=== PATIENT | male | born 1950 | race Caucasian/White ===

== ENCOUNTER 2017-02-13 09:28 | Emergency (ER) | payer MEDICARE, OTHER ==
[~2017-02-13] VITALS: Ht 170.2 cm; Wt 87.0 kg
[~2017-02-13 09:28] MED LIST: 1-ME1LIQ PO; BACT800T5 PO
[2017-02-13 09:35] VITALS: BP 155/72; PULSE 94; RESP 16; TEMP 98.6; O2SAT 98
--- NOTE | 2017-02-13 09:54 | PD ---
HPI Chief Complaint: Musculoskeletal Complaint Time Seen by Provider: 09:40 Travel History International Travel<30 days: No Contact w/Intl Traveler<30days: No Traveled to known affect area: No History of Present Illness HPI The patient is a 66-year-old male who presents to the emergency department for left foot pain. The patient notes a three-day history of left foot pain that is over the anterior left forefoot. The pain is worse with weightbearing and plantar flexing. The patient denies any trauma to the affected area and denies any increase in activity to left lower extremity. He denies any history of gout or previous injuries to left foot. He denies any associated numbness, tingling, erythema, or swelling. The pain is nonradiating , worse with weightbearing, and alleviated at rest. PFSH Past Medical History Hx Anticoagulant Therapy: No Arthritis: No Asthma: No Autoimmune Disease: No Blood Disorders: No Anxiety: No Depression: No Heart Rhythm Problems: No Cancer: No Cardiac Catheterization: Yes Cardiovascular Problems: No High Cholesterol: No Chemotherapy: No Chest Pain: No Congestive Heart Failure: No COPD: No Cerebrovascular Accident: No Diabetes: No Diminished Hearing: No Endocrine: No Gastrointestinal Disorders: No GERD: No Glaucoma: No Headaches: No Hepatitis: No Hiatal Hernia: No Hypertension: Yes Immune Disorder: No Implanted Vascular Access Dvce: No Musculoskeletal: No Neurologic: No Psychiatric: No Reproductive: No Respiratory: No Immunizations Current: No Migraines: No Myocardial Infarction: No Radiation Therapy: No Seizures: Yes Sickle Cell Disease: No Sleep Apnea: No Thyroid Disease: No Ulcer: No Past Surgical History Abdominal Surgery: No AICD: No Appendectomy: No Arteriovenous Shunt: No Cardiac Surgery: No Cholecystectomy: No Coronary Artery Bypass Graft: No Ear Surgery: No Endocrine Surgery: No Eye Surgery: Yes (CATARACT) Genitourinary Surgery: No Gynecologic Surgery: No Insulin Pump: No Joint Replacement: No Neurologic Surgery: No Oral Surgery: No Pacemaker: No Thoracic Surgery: No Other Surgery: No Social History Alcohol Use: Yes (4PACK./DAY) Tobacco Use: Yes (2PPD) Substance Use: No Allergies-Medications (Allergen,Severity, Reaction): Coded Allergies: No Known Allergies (Verified , 02/13/17) Reported Meds & Prescriptions Reported Meds & Active Scripts Active No Active Prescriptions or Reported Medications Review of Systems Except as stated in HPI: all other systems reviewed are Neg General / Constitutional: No: Fever Musculoskeletal: Positive: Pain, No: Limited ROM, Edema Skin: No Other (no erythema) Neurologic: No: Paresthesia, Sensory Disturbance Physical Exam Narrative GENERAL: Awake, alert, nontoxic-appearing 66-year-old male who appears his stated age and is in no acute respiratory distress. SKIN: Focused skin assessment warm/dry. HEAD: Atraumatic. Normocephalic. EYES: No injection or drainage. ENT: No nasal bleeding or discharge. Mucous membranes pink and moist. NECK: Trachea midline. No JVD. MUSCULOSKELETAL: The left foot reveals no obvious edema or erythema. Patient is tender to palpation over the anterior aspect of the mid left forefoot but no crepitus or deformity noted. Positive left dorsalis pedal pulse. Pain is elicited with plantarflexion but patient is able fully plantar flex and dorsiflex. No tenderness of the medial or lateral malleus. No tenderness of the Achilles. NEUROLOGICAL: Awake and alert. No obvious cranial nerve deficits. Motor grossly within normal limits. Normal speech. Sensation is intact of the medial , lateral, dorsal aspect of the left foot. PSYCHIATRIC: Appropriate mood and affect; insight and judgment normal. Data Data Last Documented VS Vital Signs Date Time Temp Pulse Resp B/P (MAP) Pulse Ox O2 Delivery O2 Flow Rate FiO2 02/13/17 09:35 98.6 94 16 155/72 (99) 98 Orders Orders Foot, Complete ([id number]) (02/13/17 ) Ibuprofen (Motrin) (02/13/17 10:00) [facility] Medical Decision Making Medical Screen Exam Complete: Yes Emergency Medical Condition: Yes Medical Record Reviewed: Yes Interpretation(s) X-ray reveals no acute bony abnormality noted. Differential Diagnosis Differential diagnosis includes gout, cellulitis, stress fracture, contusion, hematoma, sprain, strain. Narrative Course X-ray of the left foot was obtained. The patient was administered ibuprofen 400 mg orally. The patient's x-rays unremarkable, however, review the EMR does reveal the patient has chronic kidney disease stage III, therefore, I will fluid pooled cholesterol anti-inflammatory use. The patient will be prescribed pain medications. He is advised elevate, rest, activity as tolerated. If symptoms persist he is advised to follow-up with podiatry. He will be provided a copy of his x-ray results at discharge. Diagnosis Primary Impression: Left foot pain Patient Instructions: General Instructions Additional Instructions: Medications as directed. Follow-up with podiatry if symptoms persist. Rest, ice, elevate, and activity as tolerated. Med/Other Pt SpecificInfo: Prescription(s) given Scripts Hydrocodone-Acetaminophen ([place]) 5-325 mg Tab 1 TAB PO Q6H Y for PAIN, #15 TAB 0 Refills Prov: Kenneth Stroud MD 02/13/17 Disposition: 01 DISCHARGE HOME Condition: Stable Kenneth Stroud MD Feb 13, 2017 09:54
[2017-02-13] MEDS ORDERED: IBUPROFEN 400 MG TAB PO ONE (10:00)
--- NOTE | 2017-02-13 10:41 | RADRPT ---
EXAM DATE/TIME: 02/13/2017 10:11 [facility] COMPARISON: CHEST PA & LAT, March 05, 2016, 20:47. INDICATIONS : Left foot pain /swelling with no known injury. MEDICAL HISTORY : Hypertension. Seizures. SURGICAL HISTORY : Cataract sugery. Cardiac cath. ENCOUNTER: Initial ACUITY: 3 days PAIN SCORE: 7/10 LOCATION: Left foot FINDINGS: Three view examination of the left foot demonstrates mild soft tissue swelling. No acute fracture or dislocation is identified. The tarsal bones appear intact. The interphalangeal and metatarsophalange al joints are intact. The calcaneus is intact. Bony mineralization is normal. CONCLUSION: 1. No acute bony abnormality. Maurilio Acevedo MD on February 13, 2017 at 10:36 Board Certified Radiologist. This report was verified electronically.
[2017-02-13] MEDS ORDERED: NORC5TAB PO (10:47)
== END 2017-02-13 11:00 | disposition home or self-care (01) ==
LOC: PHED 09:28
DX: M79.672 Pain in left foot (principal); F17.200 Nicotine dependence, unspecified, uncomplicated
CPT/HCPCS: 73630; 99283

== ENCOUNTER 2017-06-18 09:23 | Emergency (ER) | payer SELFPAY ==
[~2017-06-18] VITALS: Ht 170.2 cm; Wt 88.0 kg
[~2017-06-18 09:23] MED LIST changes: -1-ME1LIQ PO; -BACT800T5 PO; +NORC5TAB PO
[2017-06-18 09:29] VITALS: BP 192/93; PULSE 82; RESP 16; TEMP 97.6; O2SAT 98
--- NOTE | 2017-06-18 10:19 | PD ---
HPI Chief Complaint: Musculoskeletal Complaint Time Seen by Provider: 10:09 Travel History International Travel<30 days: No Contact w/Intl Traveler<30days: No Traveled to known affect area: No History of Present Illness HPI 66-year-old male with history of hypertension presents for evaluation of right elbow pain. Symptoms started 2 weeks ago. He reports that he woke up with pain to the medial right elbow. He is an aching pain which is constant, worse with flexion and extension of the right elbow. Symptoms have persisted which prompted evaluation today. He does not recall any trauma. He is right-hand dominant. He denies any repetitive motion activities utilizing the right arm. He has no other complaints at this time. PFSH Past Medical History Hx Anticoagulant Therapy: No Arthritis: No Asthma: No Autoimmune Disease: No Blood Disorders: No Anxiety: No Depression: No Heart Rhythm Problems: No Cancer: No Cardiac Catheterization: Yes Cardiovascular Problems: No High Cholesterol: No Chemotherapy: No Chest Pain: No Congestive Heart Failure: No COPD: No Cerebrovascular Accident: No Diabetes: No Diminished Hearing: No Endocrine: No Gastrointestinal Disorders: No GERD: No Glaucoma: No Headaches: No Hepatitis: No Hiatal Hernia: No Hypertension: Yes Immune Disorder: No Implanted Vascular Access Dvce: No Musculoskeletal: No Neurologic: No Psychiatric: No Reproductive: No Respiratory: No Immunizations Current: No Migraines: No Myocardial Infarction: No Radiation Therapy: No Seizures: Yes Sickle Cell Disease: No Sleep Apnea: No Thyroid Disease: No Ulcer: No Past Surgical History Abdominal Surgery: No AICD: No Appendectomy: No Arteriovenous Shunt: No Cardiac Surgery: No Cholecystectomy: No Coronary Artery Bypass Graft: No Ear Surgery: No Endocrine Surgery: No Eye Surgery: Yes (CATARACT) Genitourinary Surgery: No Gynecologic Surgery: No Insulin Pump: No Joint Replacement: No Neurologic Surgery: No Oral Surgery: No Pacemaker: No Thoracic Surgery: No Other Surgery: No Social History Alcohol Use: Yes (4PACK./DAY) Tobacco Use: Yes (2PPD) Substance Use: No Allergies-Medications (Allergen,Severity, Reaction): Coded Allergies: No Known Allergies (Verified Adverse Reaction, Unknown, 06/18/17) Reported Meds & Prescriptions Reported Meds & Active Scripts Active Capsaicin Topical (Capsaicin) 0.025% Cream 1 Applic TOPICAL QID Amlodipine (Amlodipine Besylate) 10 Mg Tab 10 Mg PO DAILY Review of Systems General / Constitutional: No: Fever, Chills Musculoskeletal: Positive: Limited ROM, Pain Skin: Positive Other (denies open wounds) Physical Exam Narrative GENERAL: Well-developed well-nourished male in no acute distress. Noted to be hypertensive in triage. SKIN: Warm and dry. HEAD: Atraumatic. Normocephalic. EYES: Pupils equal and round. No scleral icterus. No injection or drainage. ENT: No nasal bleeding or discharge. Mucous membranes pink and moist. NECK: Trachea midline. No JVD. CARDIOVASCULAR: Regular rate and rhythm. No murmur appreciated. RESPIRATORY: No accessory muscle use. Clear to auscultation. Breath sounds equal bilaterally. MUSCULOSKELETAL: Tender to palpation to the medial epicondyles of the right elbow. The patient has pain with flexion and extension of the right elbow limiting range of motion. Pronation and supination of the right forearm are intact. There is no edema to the right proximal arm or forearm. No joint effusion or erythema of the skin. Distal sensation and pulses are preserved. NEUROLOGICAL: Awake and alert. No obvious cranial nerve deficits. Motor grossly within normal limits. Normal speech. PSYCHIATRIC: Appropriate mood and affect; insight and judgment normal. Data Data Last Documented VS Vital Signs Date Time Temp Pulse Resp B/P (MAP) Pulse Ox O2 Delivery O2 Flow Rate FiO2 06/18/17 09:29 97.6 82 16 192/93 (126) 98 Orders Orders Elbow, Complete (4 Vws) (06/18/17 ) Ed Discharge Order (06/18/17 11:23) [facility] Medical Decision Making Medical Screen Exam Complete: Yes Emergency Medical Condition: Yes Medical Record Reviewed: Yes Differential Diagnosis Inflammatory arthritis, medial epicondylitis, fracture, bursitis, DVT, sprain Narrative Course 66-year-old male with 2 weeks of medial right elbow pain with no obvious trauma. Examination is focal tenderness to palpation to the medial right elbow and pain with flexion and extension with no obvious deformities. Per chart review the patient is a heavy drinker and is possible that he could have injured it while intoxicated. X-ray imaging will be obtained. The patient was noted to be hypertensive in triage. He reports history of hypertension, previously on antihypertensive medication but has been out of it for several months. Per chart review the patient was previously on amlodipine 10 mg daily. The patient be given a short refill of this and is encouraged to follow-up with his primary care physician. X-ray imaging reveals chronic changes no acute findings. Patient has a history of chronic kidney disease so oral NSAIDs will be avoided. He will be given prescription for capsaicin and recommended [id number] Tylenol for symptom control. Diagnosis Primary Impression: Right elbow pain Additional Impression: Hypertension Additional Instructions: Medication as prescribed. As discussed monitor blood pressure on a daily basis and follow-up with primary care physician next week to discuss the findings. Med/Other Pt SpecificInfo: Prescription(s) given Scripts Capsaicin Topical (Capsaicin Topical) 0.025% Cream 1 APPLIC TOPICAL QID, #1 TUBE Prov: Yosef Montoya MD 06/18/17 Amlodipine (Amlodipine) 10 Mg Tab 10 MG PO DAILY for Blood Pressure Management, #30 TAB 0 Refills Prov: Yosef Montoya MD 06/18/17 Disposition: 01 DISCHARGE HOME Condition: Stable Jordan Mendoza Jun 18, 2017 10:19
[2017-06-18] MEDS ORDERED: AMLO10TA2 PO (11:14)
--- NOTE | 2017-06-18 11:20 | RADRPT ---
EXAM DATE/TIME: 06/18/2017 10:41 [facility] COMPARISON: No previous studies available for comparison. INDICATIONS : Right elbow pain, no known injury. MEDICAL HISTORY : None. SURGICAL HISTORY : None. ENCOUNTER: Initial ACUITY: 2 weeks PAIN SCORE: 9/10 LOCATION: Right elbow FINDINGS: Multiple view examination of the right elbow demonstrates no soft tissue swelling, joint effusion, or fracture. The osseous structures are in normal alignment. Mild degenerative changes noted in the ul stephanie trochlear joint. There is mild osteopenia. CONCLUSION: Osteopenia and mild degenerative change. Madan Matos MD on June 18, 2017 at 11:13 Board Certified Radiologist. This report was verified electronically.
[2017-06-18] MEDS ORDERED: CAPS0.022 TOPICAL (11:23)
== END 2017-06-18 11:38 | disposition home or self-care (01) ==
LOC: PHEFT 09:23
DX: M25.521 Pain in right elbow (principal); I10 Essential (primary) hypertension; F17.200 Nicotine dependence, unspecified, uncomplicated
CPT/HCPCS: 73080; 99283

== ENCOUNTER 2017-08-08 09:39 | Emergency (ER) | payer MEDICARE ==
[~2017-08-08] VITALS: Ht 170.2 cm; Wt 86.5 kg
[~2017-08-08 09:39] MED LIST changes: +AMLO10TA2 PO; +CAPS0.022 TOPICAL; -NORC5TAB PO
[2017-08-08 09:50] VITALS: BP 120/73; PULSE 96; RESP 16; TEMP 97.9; O2SAT 96
--- NOTE | 2017-08-08 10:52 | PD ---
HPI Chief Complaint: Respiratory Symptoms Time Seen by Provider: 10:48 Travel History International Travel<30 days: No Contact w/Intl Traveler<30days: No Traveled to known affect area: No History of Present Illness HPI 66-year-old male patient with history of hypertension, smoking, presents to the ER today because he has had 4 weeks history of coughing with small amount of phlegm. He states that he has had some he denies any shortness of breath, fevers, vomiting, or other symptoms. He also states he has noticed 2 kn on his right upper quadrant abdomen that act up sometimes but he has no pain now. Modifying Factors: None Associated Signs & Symptoms: Coughing for 4 weeks, right upper quadrant abdominal pains intermittently Risk Factors: None PFSH Past Medical History Hx Anticoagulant Therapy: No Arthritis: No Asthma: No Autoimmune Disease: No Blood Disorders: No Anxiety: No Depression: No Heart Rhythm Problems: No Cancer: No Cardiac Catheterization: Yes Cardiovascular Problems: No High Cholesterol: No Chemotherapy: No Chest Pain: No Congestive Heart Failure: No COPD: No Cerebrovascular Accident: No Diabetes: No Diminished Hearing: No Endocrine: No Gastrointestinal Disorders: No GERD: No Glaucoma: No Headaches: No Hepatitis: No Hiatal Hernia: No Hypertension: Yes Immune Disorder: No Implanted Vascular Access Dvce: No Musculoskeletal: No Neurologic: No Psychiatric: No Reproductive: No Respiratory: No Immunizations Current: No Migraines: No Myocardial Infarction: No Radiation Therapy: No Seizures: Yes Sickle Cell Disease: No Sleep Apnea: No Thyroid Disease: No Ulcer: No Tetanus Vaccination: < 5 Years Influenza Vaccination: No Past Surgical History Abdominal Surgery: No AICD: No Appendectomy: No Arteriovenous Shunt: No Cardiac Surgery: No Cholecystectomy: No Coronary Artery Bypass Graft: No Ear Surgery: No Endocrine Surgery: No Eye Surgery: Yes (BL cataracts ) Genitourinary Surgery: No Gynecologic Surgery: No Insulin Pump: No Joint Replacement: No Neurologic Surgery: No Oral Surgery: No Pacemaker: No Thoracic Surgery: No Other Surgery: No Social History Alcohol Use: Yes (2-3 beers/day) Tobacco Use: Yes (1.5 PPD) Substance Use: No Allergies-Medications (Allergen,Severity, Reaction): Coded Allergies: No Known Allergies (Verified Adverse Reaction, Unknown, 08/08/17) Reported Meds & Prescriptions Reported Meds & Active Scripts Active Amlodipine (Amlodipine Besylate) 10 Mg Tab 10 Mg PO DAILY Review of Systems Except as stated in HPI: all other systems reviewed are Neg Physical Exam Narrative GENERAL: Well-developed elderly white male patient currently in no acute distress. Awake and oriented 3. SKIN: Focused skin assessment warm/dry. HEAD: Atraumatic. Normocephalic. EYES: Pupils equal and round. No scleral icterus. No injection or drainage. ENT: No nasal bleeding or discharge. Mucous membranes pink and moist. NECK: Trachea midline. No JVD. Supple. CARDIOVASCULAR: Regular rate and rhythm. No murmur appreciated. RESPIRATORY: No accessory muscle use. Clear to auscultation. Breath sounds equal bilaterally. GASTROINTESTINAL: Abdomen soft, non-tender, nondistended. Hepatic and splenic margins not palpable. MUSCULOSKELETAL: No obvious deformities. No clubbing. No cyanosis. Trace pitting edema the right leg. NEUROLOGICAL: Awake and alert. No obvious cranial nerve deficits. Motor grossly within normal limits. Normal speech. PSYCHIATRIC: Appropriate mood and affect; insight and judgment normal. Data Data Last Documented VS Vital Signs Date Time Temp Pulse Resp B/P (MAP) Pulse Ox O2 Delivery O2 Flow Rate FiO2 08/08/17 11:56 85 20 119/74 (89) 97 Room Air 08/08/17 09:50 97.9 Orders Orders Complete Blood Count With Diff (08/08/17 10:48) Comprehensive Metabolic Panel (08/08/17 10:48) Chest, Single Ap (08/08/17 10:48) Us Leg Venous Doppler (08/08/17 11:39) Labs Laboratory Tests Test 08/08/17 11:00 White Blood Count 7.2 TH/MM3 Red Blood Count 4.34 MIL/MM3 Hemoglobin 14.3 GM/DL Hematocrit 42.3 % Mean Corpuscular Volume 97.3 FL Mean Corpuscular Hemoglobin 32.9 PG Mean Corpuscular Hemoglobin Concent 33.9 % Red Cell Distribution Width 16.0 % Platelet Count 173 TH/MM3 Mean Platelet Volume 7.1 FL Neutrophils (%) (Auto) 57.5 % Lymphocytes (%) (Auto) 19.0 % Monocytes (%) (Auto) 19.6 % Eosinophils (%) (Auto) 3.1 % Basophils (%) (Auto) 0.8 % Neutrophils # (Auto) 4.1 TH/MM3 Lymphocytes # (Auto) 1.4 TH/MM3 Monocytes # (Auto) 1.4 TH/MM3 Eosinophils # (Auto) 0.2 TH/MM3 Basophils # (Auto) 0.1 TH/MM3 CBC Comment DIFF FINAL Differential Comment Blood Urea Nitrogen 43 MG/DL Creatinine 2.30 MG/DL Random Glucose 112 MG/DL Total Protein 7.7 GM/DL Albumin 3.0 GM/DL Calcium Level 8.2 MG/DL Alkaline Phosphatase 77 U/L Aspartate Amino Transf (AST/SGOT) 62 U/L Alanine Aminotransferase (ALT/SGPT) 41 U/L Total Bilirubin 0.9 MG/DL Sodium Level 134 MEQ/L Potassium Level 4.0 MEQ/L Chloride Level 99 MEQ/L Carbon Dioxide Level 26.7 MEQ/L Anion Gap 8 MEQ/L Estimat Glomerular Filtration Rate 29 ML/MIN [facility] Medical Decision Making Medical Screen Exam Complete: Yes Emergency Medical Condition: Yes Medical Record Reviewed: Yes Interpretation(s) Laboratory Tests Test 08/08/17 11:00 Red Blood Count 4.34 MIL/MM3 (4.50-5.90) Monocytes (%) (Auto) 19.6 % (0.0-8.0) Monocytes # (Auto) 1.4 TH/MM3 (0-0.9) Blood Urea Nitrogen 43 MG/DL (7-18) Creatinine 2.30 MG/DL (0.60-1.30) Random Glucose 112 MG/DL (74-106) Albumin 3.0 GM/DL (3.4-5.0) Calcium Level 8.2 MG/DL (8.5-10.1) Aspartate Amino Transf (AST/SGOT) 62 U/L (15-37) Sodium Level 134 MEQ/L (136-145) Estimat Glomerular Filtration Rate 29 ML/MIN (>89) Last 24 hours Impressions Chest X-Ray 08/08/17 1048 Signed Impressions: Service Date/Time: Tuesday, August 08, 2017 11:01 - CONCLUSION: No acute disease. Kelvin Acevedo MD FACR Differential Diagnosis Coughing, right upper quadrant abdominal pains: Costochondritis versus pneumonia versus pleurisy versus bronchitis Narrative Course X-ray was unremarkable. Lab work shows BUN and creatinine elevation. BNP was fairly unremarkable. There are no signs of hypoxia and pulmonary exam is unremarkable. At this point, considering smoking history, I suspect he may have some underlying bronchitis causing his coughing. On further questioning, patient's states that he has had history of kidney problems in the past. Ultrasound of his right leg did not show any signs of DVT. At this point, his other electrolytes are fairly unremarkable. My plan would be to treat his bronchitis and have him follow-up closely with primary care physician for evaluation of renal functions. Patient may need to be referred to nephrology as well. Plan was discussed with patient and and they state understanding. Diagnosis Primary Impression: CKD (chronic kidney disease) stage 3, GFR 30-59 ml/min Additional Impression: Bronchitis Med/Other Pt SpecificInfo: Prescription(s) given Scripts Azithromycin (Zithromax Z-Filemon) 250 Mg Dspk 250 MG PO DIRECTED for Infection, #1 DSPK 0 Refills 500 MG (2 tabs) day 1, then 1 tab days 2-5. Prov: Yuki Brewer MD 08/08/17 Disposition: DISCHARGE HOME Condition: Stable Yuki Brewer MD Aug 08, 2017 10:52
[2017-08-08 11:09] LABS: AUTOMATED NEUTROPHIL # 4.1 TH/MM3 (1.8-7.7); BASOPHIL # 0.1 TH/MM3 (0-0.2); BASOPHIL % 0.8 % (0.0-2.0); EOSINOPHIL # 0.2 TH/MM3 (0-0.4); EOSINOPHIL % 3.1 % (0.0-4.0); HEMATOCRIT 42.3 % (39.0-51.0); HEMOGLOBIN 14.3 GM/DL (13.0-17.0); LYMPHOCYTE # 1.4 TH/MM3 (1.0-4.8); MEAN CELL VOLUME 97.3 FL (80.0-100.0); MEAN CORPUSCULAR HEMOGLOBIN 32.9 PG (27.0-34.0); MEAN CORPUSCULAR HGB CONC 33.9 % (32.0-36.0); MEAN PLATELET VOLUME 7.1 FL (7.0-11.0); MONO % 19.6 % (0.0-8.0); MONOCYTE # 1.4 TH/MM3 (0-0.9); NEUT % 57.5 % (16.0-70.0); PLATELET COUNT 173 TH/MM3 (150-450); RED BLOOD COUNT 4.34 MIL/MM3 (4.50-5.90); WHITE BLOOD COUNT 7.2 TH/MM3 (4.0-11.0)
[2017-08-08 11:22] LABS: CHLORIDE 99 MEQ/L (98-107); SODIUM (NA) 134 MEQ/L (136-145)
[2017-08-08 11:24] LABS: CALCIUM 8.2 MG/DL (8.5-10.1)
[2017-08-08 11:25] LABS: BICARBONATE 26.7 MEQ/L (21.0-32.0); BLOOD UREA NITROGEN 43 MG/DL (7-18); GLUCOSE,RANDOM 112 MG/DL (74-106)
--- NOTE | 2017-08-08 11:25 | RADRPT ---
EXAM DATE/TIME: 08/08/2017 11:01 [facility] COMPARISON: CHEST SINGLE AP, January 08, 2016, 15:27. INDICATIONS : Short of breath MEDICAL HISTORY : Hypertension. Smoker SURGICAL HISTORY : Cardiac catherization ENCOUNTER: Initial ACUITY: 1 day PAIN SCORE: 0/10 LOCATION: Bilateral chest FINDINGS: A single view of the chest demonstrates the lungs to be symmetrically aerated without evidence of mas s, infiltrate or effusion. The cardiomediastinal contours are unremarkable. Osseous structures are intact. CONCLUSION: No acute disease. Kelvin Acevedo MD FACR on August 08, 2017 at 11:23 Board Certified Radiologist. This report was verified electronically.
[2017-08-08 11:28] LABS: ALT (GPT) 41 U/L (12-78); AST (GOT) 62 U/L (15-37); GLOMERULAR FILTRATION RATE 29 ML/MIN (>89)
[2017-08-08 11:30] LABS: TOTAL BILIRUBIN ADULT 0.9 MG/DL (0.2-1.0); TOTAL PROTEIN 7.7 GM/DL (6.4-8.2)
[2017-08-08 11:31] LABS: ALKALINE PHOSPHATASE 77 U/L (45-117)
[2017-08-08 11:56] VITALS: BP 119/74; PULSE 85; RESP 20; O2SAT 97
--- NOTE | 2017-08-08 12:26 | RADRPT ---
EXAM DATE/TIME: 08/08/2017 12:04 [facility] COMPARISON: No previous studies available for comparison. INDICATIONS : Right leg swelling. MEDICAL HISTORY : Hypertension. Seizures. SURGICAL HISTORY : Cardiac catheterization. ENCOUNTER: Initial ACUITY: 1 day PAIN SCORE: 0/10 LOCATION: Right leg. TECHNIQUE: Venous ultrasound of the leg was performed from the inguinal ligament to the proximal calf. Real-laila e, color Doppler and spectral tracing, compression and augmentation techniques were used. FINDINGS: There is normal compressibility of the deep venous system from the inguinal region to the proximal ca lf. No echogenic clot is seen in the lumen of the common femoral, femoral, popliteal, and posterior tibial veins. There is a normal response of the venous system to proximal and distal augmentation an d respiration. CONCLUSION: No DVT is identified within the right lower extremity. Stephen Ling MD on August 08, 2017 at 12:24 Board Certified Radiologist. This report was verified electronically.
[2017-08-08] MEDS ORDERED: ZITHTAB PO (12:34)
== END 2017-08-08 13:10 | disposition home or self-care (01) ==
LOC: PHED 09:39
DX: N18.3 Chronic kidney disease, stage 3 (moderate) (principal); J40 Bronchitis, not specified as acute or chronic; R60.0 Localized edema; R10.11 Right upper quadrant pain; I12.9 Hypertensive chronic kidney disease with stage 1 through stage 4 chronic kidney disease, or unspecified chronic kidney disease; F17.200 Nicotine dependence, unspecified, uncomplicated; Z86.69 Personal history of other diseases of the nervous system and sense organs
CPT/HCPCS: 71045; 80053; 85025; 93971; 99285

== ENCOUNTER 2018-02-16 17:32 | Inpatient (IN) ==
[2018-02-16 18:20] LABS: Baso % (Auto) 0.2 % (0.0-2.0); Eos # (Auto) 0.1 th/mm3 (0.0-0.4); Eos % (Auto) 0.6 % (0.0-4.0); Hematocrit 30.5 % (39.0-51.0); Hemoglobin 10.2 gm/dL (13.0-17.0); Lymph # (Auto) 0.9 th/mm3 (1.0-4.8); Lymph % (Auto) 7.3 % (9.0-44.0); Mean Corpuscular HGB Conc 33.6 % (32.0-36.0); Mean Corpuscular Hemoglobin 36.1 pg (27.0-34.0); Mean Corpuscular Volume 107.6 fL (80.0-100.0); Mean Platelet Volume 7.4 fL (7.0-11.0); Mono # (Auto) 1.6 th/mm3 (0.0-0.9); Mono % (Auto) 13.1 % (0.0-8.0); Neut # (Auto) 9.6 th/mm3 (1.8-7.7); Neut % (Auto) 78.8 % (16.0-70.0); Platelet Count 419 th/mm3 (150-450); Red Blood Count 2.83 mil/mm3 (4.50-5.90); Red Cell Distribution Width 14.2 % (11.6-17.2); White Blood Count 12.2 th/mm3 (4.0-11.0)
[2018-02-16 18:34] LABS: Chloride 97 meq/L (98-107); Potassium 4.4 meq/L (3.5-5.1); Sodium 133 meq/L (136-145)
[2018-02-16 18:37] LABS: Albumin 2.2 g/dL (3.4-5.0); Calcium 8.7 mg/dL (8.5-10.1)
[2018-02-16 18:38] LABS: Anion Gap 14 meq/L (5-15); Blood Urea Nitrogen 52 mg/dL (7-18); Carbon Dioxide 21.6 meq/L (21.0-32.0); Glucose,Random 88 mg/dL (74-106)
[2018-02-16 18:41] LABS: Activated Partial Thrombo Time 31.3 sec (24.3-30.1); Alanine Aminotransferase 20 U/L (12-78); Aspartate Aminotransferase 20 U/L (15-37); Glomerular Filtration Rate 32 mL/min (>89)
[2018-02-16 18:42] LABS: Total Protein 7.9 g/dL (6.4-8.2)
[2018-02-16 18:43] LABS: Alkaline Phosphatase 106 U/L (45-117)
[2018-02-16 18:45] LABS: Creatine Kinase 36 U/L (39-308)
--- NOTE | 2018-02-16 18:53 | CT ---
EXAM DATE: 02/16/2018 6:21 PM EDT AGE/SEX: 67 years / Male INDICATIONS: Frequent falls and dizziness. CLINICAL DATA: This is the patient's initial encounter. Patient reports that signs and symptoms have been present for 3 weeks and indicates a pain score of 0/10. MEDICAL/SURGICAL HISTORY: Hypertension. . Cataract extraction. RADIATION DOSE: 56.42 CTDI (mGy) COMPARISON: [facility] [place], CT BRAIN W/O CONTRAST, 11/02/2015. . TECHNIQUE: CT of the head without contrast. Using automated exposure control and adjustment of the mA and/or kV according to patient size, radiation dose was kept as low as reasonably achievable to ob tain optimal diagnostic quality images. DICOM format image data is available electronically for revi ew and comparison. FINDINGS: There is no intracranial hemorrhage or hematoma. No mass, mass effect or midline shift. Atrophy and chronic low-attenuation in the periventricular white matter again noted. There is mild ve ntriculomegaly, similar to before. CONCLUSION: 1. No acute intracranial abnormality. 2. Atrophy and chronic white matter changes. 3. Mild ventriculomegaly similar to before. . Electronically signed by: Stephen Ordoñez MD 02/16/2018 6:51 PM EDT
[2018-02-16] MEDS ORDERED: Sodium Chlor 0.9% Inj 500 ML IV.SIG SCH ×2 (19:00→20:00)
--- NOTE | 2018-02-16 19:01 | XR ---
EXAM DATE: 02/16/2018 6:04 PM EDT AGE/SEX: 67 years / Male INDICATIONS: Dizziness and patient fell today. CLINICAL DATA: This is the patient's initial encounter. Patient reports that signs and symptoms have been present for 1 day and indicates a pain score of 4/10. MEDICAL/SURGICAL HISTORY: . Hypertension. . Cataract extraction . Cataracts COMPARISON: [facility], CHEST SINGLE AP, 08/08/2017. . FINDINGS: A single AP view of the chest demonstrates the lungs to be symmetrically aerated without evidence of mass, infiltrate or effusion. The cardiomediastinal contours are unremarkable. Osseous structures a re intact. CONCLUSION: No evidence of acute cardiopulmonary disease. Electronically signed by: Stephen Ordoñez MD 02/16/2018 7:00 PM EDT
--- NOTE | 2018-02-16 19:13 | XR ---
EXAM DATE: 02/16/2018 6:07 PM EDT AGE/SEX: 67 years / Male INDICATIONS: Patient srtates that he has left knee pain with no history of trauma. CLINICAL DATA: This is the patient's initial encounter. Patient reports that signs and symptoms have been present for 1 day and indicates a pain score of 7/10. MEDICAL/SURGICAL HISTORY: . Hypertension. . Cataract extraction . cataracts COMPARISON: [facility], FEMUR LEFT (AP & LAT/2VWS), 01/07/2015. . FINDINGS: There is no fracture or subluxation demonstrated of the left knee. No significant joint space narrowi ng. A large joint effusion is evident. There is atherosclerosis of the superficial femoral and popliteal arteries. CONCLUSION: No bony abnormality demonstrated. Nonspecific joint effusion. Peripheral artery disease. Electronically signed by: Stephen Ordoñez MD 02/16/2018 7:12 PM EDT
--- NOTE | 2018-02-16 19:45 | ED ---
HPI General Chief complaint: Dizziness Stated complaint: DIZZINESS/FALL Time Seen by Provider: 02/16/18 17:57 Source: patient Mode of arrival: ambulatory Limitations: no limitations History of Present Illness HPI narrative: Patient is a 67 year old male who comes in complaining of frequent falls and left knee pain. Patient was here a few days ago for right knee pain, but says now the left his hurting him and keeps giving out. His roommate reports that for the past few weeks he has been "blacking out and having seizures." He says he has shaking episodes of 15 seconds when he passes out. He says when he wakes up he is completely coherent. Patient is a daily drinker. He says he has not had an alcoholic beverage since yesterday. He denies chest pain or SOB. He denies fever or chills. Severity is moderate. Related Data Previous Rx's Medication Instructions Recorded hydrocodone-acetaminophen [[place]] 1 tab PO Q6-8H PRN #10 tab 02/10/18 Allergies Allergy/AdvReac Type Severity Reaction Status Date / Time No Known Allergies Allergy Verified 02/16/18 17:39 Review of Systems ROS: all other systems reviewed are negative Constitutional Denies chills and Denies fever(s) ENT Denies dizziness Cardiovascular Denies chest pain Respiratory Denies cough and Denies dyspnea Gastrointestinal Denies abdominal pain, Denies nausea and Denies vomiting Musculoskeletal Reports arthralgias Integumentary/Breasts Denies lesions, Reports rash and Denies wounds Neurologic Denies focal weakness and Reports seizure-like activity [facility] Medical History Medical History Hypertension (Acute) Surgical History Surgical History H/O bilateral cataract extraction (Acute) Social History Social History Substance History: Active Abuse Second Hand Smoke Exposure: No Smoking Status: Current every day smoker Tobacco Type: Cigarettes How Often Do You Have a Drink Containing Alcohol: 4 or more times a week Recent Travel in [facility] within the Last 8 Weeks: No Recent Out of Country Travel within the Last 8 Weeks: No Immunization History Tetanus Immunization: >5 Years Hx Influenza Vaccine This Season: No Exam Narrative Exam Narrative: GENERAL: Awake and alert, no acute distress. SKIN: Excoriations of her most of his extremities. No evidence of infection. HEAD: Atraumatic. Normocephalic. EYES: Pupils equal and round. No scleral icterus. Extraocular movements intact. ENT: Mucous membranes pink and moist. Tongue fasciculations apparent. NECK: Trachea midline. No JVD. CARDIOVASCULAR: Regular rate and rhythm. No murmur appreciated. RESPIRATORY: No accessory muscle use. Clear to auscultation. Breath sounds equal bilaterally. GASTROINTESTINAL: Abdomen soft, non-tender, nondistended. MUSCULOSKELETAL: No obvious deformities. No clubbing. No cyanosis. No edema. Pain with movement of the left knee. NEUROLOGICAL: Awake and alert. No obvious cranial nerve deficits. Motor grossly within normal limits. Normal speech. Patient has tremors of both hands. PSYCHIATRIC: Appropriate mood and affect; insight and judgment normal. Course Initial Documented Vital Signs Temperature 98.1 F 02/16/18 17:35 Pulse Rate 106 H 02/16/18 17:35 Respiratory Rate 18 02/16/18 17:35 Blood Pressure 152/72 H 02/16/18 17:35 Pulse Oximetry 100 02/16/18 17:35 Last Documented Vital Signs Temperature 98.1 F 02/16/18 17:35 Pulse Rate 106 H 02/16/18 17:57 Respiratory Rate 18 02/16/18 17:57 Blood Pressure 161/60 H 02/16/18 17:57 Pulse Oximetry 98 02/16/18 17:57 Medical Decision Making [facility] Narrative Medical decision making narrative: Patient is a 67-year-old male who comes in after frequent falls in complaining of left knee pain. Exam shows patient to be tremulous. IV established, labs sent. Patient connected to the potline monitor. Given Ativan. Given IV fluids. Labs show a white blood cell count of 12.2. Creatinine is 2.1, this is improved from his previous. Chest x-ray shows no acute abnormalities. CT of the head performed shows no acute abnormalities. I believe patient's symptoms are related to alcohol and alcohol withdrawal. He will be admitted for further management. Medical Screen Exam Complete: Yes Emergency Medical Condition: Yes Differential Diagnosis Differential Diagnosis: Alcohol withdrawal versus electrolyte abnormality versus dehydration versus arthritis Medical Records Medical records reviewed: Yes I reviewed the patient's medical records. Lab Data Lab results reviewed: Yes I reviewed the patient's lab results. Result diagrams: 02/16/18 18:10 02/16/18 18:10 Lab Results 02/16/18 02/16/18 02/16/18 Range/Units 18:10 18:10 18:10 CBC w Diff Auto diff final WBC 12.2 H (4.0-11.0) th/mm3 RBC 2.83 L (4.50-5.90) mil/mm3 Hgb 10.2 L (13.0-17.0) gm/dL Hct 30.5 L (39.0-51.0) % MCV 107.6 H (80.0-100.0) fL MCH 36.1 H (27.0-34.0) pg MCHC 33.6 (32.0-36.0) % RDW 14.2 (11.6-17.2) % Plt Count 419 (150-450) th/mm3 MPV 7.4 (7.0-11.0) fL Neut % (Auto) 78.8 H (16.0-70.0) % Lymph % (Auto) 7.3 L (9.0-44.0) % [place] % (Auto) 13.1 H (0.0-8.0) % Eos % (Auto) 0.6 (0.0-4.0) % Baso % (Auto) 0.2 (0.0-2.0) % Neut # (Auto) 9.6 H (1.8-7.7) th/mm3 Lymph # (Auto) 0.9 L (1.0-4.8) th/mm3 [place] # (Auto) 1.6 H (0.0-0.9) th/mm3 Eos # (Auto) 0.1 (0.0-0.4) th/mm3 Baso # (Auto) 0.0 (0.0-0.2) th/mm3 WBC Differential . Differential Comment . PT 10.0 (9.8-11.6) sec INR 1.0 Ratio APTT 31.3 H (24.3-30.1) sec Sodium 133 L (136-145) meq/L Potassium 4.4 (3.5-5.1) meq/L Chloride 97 L (98-107) meq/L Carbon Dioxide 21.6 (21.0-32.0) meq/L Anion Gap 14 (5-15) meq/L BUN 52 H (7-18) mg/dL Creatinine 2.10 H (0.60-1.30) mg/dL Estimated GFR 32 L (>89) mL/min Random Glucose 88 (74-106) mg/dL Calcium 8.7 (8.5-10.1) mg/dL Total Bilirubin 0.6 (0.2-1.0) mg/dL AST 20 (15-37) U/L ALT 20 (12-78) U/L Alkaline Phosphatase 106 (45-117) U/L Total Creatine Kinase 36 L (39-308) U/L Troponin I Less than 0.02 L (0.02-0.05) ng/mL Total Protein 7.9 (6.4-8.2) g/dL Albumin 2.2 L (3.4-5.0) g/dL Serum Alcohol Less than 3 (0-5) mg/dL Imaging Data Radiologist's impression: Chest X-Ray 02/16/18 18:04 CONCLUSION: No evidence of acute cardiopulmonary disease. Head CT 02/16/18 18:04 CONCLUSION: 1. No acute intracranial abnormality. 2. Atrophy and chronic white matter changes. 3. Mild ventriculomegaly similar to before. . Knee X-Ray 02/16/18 18:07 CONCLUSION: No bony abnormality demonstrated. Nonspecific joint effusion. Peripheral artery disease. ECG Data EKG Prior to Arrival: No Attestation: I personally reviewed and interpreted this ECG as follows: Interpretation: ECG shows sinus tachycardia at a rate of 104, no ST elevation or depression, right bundle branch block Discharge Plan Discharge Disposition Patient Disposition: 30 Still Patient Discharge Condition Condition: Stable Discharge Details Diagnosis: Alcohol withdrawal, Falls frequently Physicians Team ED Provider: Ivy Doyle Primary Care Provider: Primary Care Maxine Christine Rxs /Orders / Referrals /Forms Prescriptions: No Action hydrocodone-acetaminophen [[place]] 5-325 mg tablet 1 tab PO Q6-8H PRN (Reason: pain) Qty: 10 RF: 0 Discharge Interventions Interventions: Vital Signs Last Done: 02/16/18 19:48 Status ED Status: With Doctor
[2018-02-16] MEDS ORDERED: Haloperidol Inj 5 MG/ML Ampul IV.PUSH PRN (20:12)
[2018-02-16] MEDS ORDERED: LORazepam 1 MG Tablet PO PRN (20:12)
[2018-02-16] MEDS: Heparin - SQ 10,000 UNITS/ML Vial SQ SCH (22:46)
[2018-02-16] MEDS: Sod Chloride 0.9% Inj 1,000 ML IV.CONT SCH (22:47)
[2018-02-16] MEDS: Famotidine 20 MG Tablet PO SCH (22:47)
[2018-02-17] MEDS: Sod Chloride 0.9% Inj 1,000 ML IV.CONT SCH ×3 (06:46→21:54)
[2018-02-17] MEDS: Heparin - SQ 10,000 UNITS/ML Vial SQ SCH ×3 (07:10→21:11)
[2018-02-17] MEDS: Folic Acid 1 MG Tablet PO SCH (09:21)
[2018-02-17] MEDS: Multivitamin/Minerals Therapeutic Tablet PO SCH (09:21)
[2018-02-17] MEDS: Famotidine 20 MG Tablet PO SCH ×3 (09:21→20:49)
--- NOTE | 2018-02-17 09:28 | P.HP ---
History of Present Illness Primary Care Physician: No Primary Care Physician Chief Complaint: Multiple falls at home, knee pain, report of seizures History of Present Illness: This is a 67-year-old male patient with a known medical history of alcohol abuse who presented to the ED with complaints of multiple falls at home, right knee pain, and reports of seizures at home. Patient is examined at bedside, sleeping awakens to voice. Alert and oriented x 3 although a relatively poor historian. Patient does state that he has been falling at home for the past couple months and has just recently reports of falling out of his truck and hurting his right knee. He states that he uses a walker at home although states it does not fit him well and he does not use it. Patient states that prior to his falls he feels like his legs are giving out with occasional dizziness prior to his falls. He admits to drinking up to a 12-pack per day of beer as well as smoking 2 ppd cigarettes since his teen years. Patient does admit to issues in the past, states that his last seizure was last month. He does not take any medications at home for his seizures. States that he usually has a seizure if he stops drinking or does not drink enough. Denies any recent fevers, chills, cough, shortness of breath, vomiting, or changes to his bowels. - Diagnosis (1) Alcohol withdrawal (2) Falls frequently Review of Systems All other systems reviewed negative except as stated in HPI PMFSH - History History Provided By: Patient - Medical History Medical History: Medical History (Last Reviewed 02/17/18 @ 09:17 by Ivy Gonzales) Hypertension - Surgical History Surgical History: Surgical History (Last Reviewed 02/17/18 @ 09:17 by Ivy Gonzales) H/O bilateral cataract extraction - Family History Family History: Family History (Last Updated 02/17/18 @ 09:17 by Ivy Gonzales) Other Family history in first degree relatives is unremarkable - Tobacco History Second Hand Smoke Exposure: Yes Tobacco Use In Past 30 Days: Yes Smoking Status: Heavy tobacco smoker Tobacco Type: Cigarettes - Alcohol History How Often Do You Have a Drink Containing Alcohol: 4 or more times a week - Substance Use History Substance History: No History of Abuse - Travel History Recent Travel in the [place] Within the Last 8 Weeks: No Recent Travel Out of the Country Within the Last 8 Weeks: No - Immunization History Tetanus Immunization: >5 Years Hx Influenza Vaccine This Season: No Medications and Allergies Active Medications: Active Medications Hydrocodone Bitart/Acetaminophen ([place] 5/325) 1 tab PO Q6H PRN PRN Reason: pain Clonidine HCl (Catapres) 0.1 mg PO Q6H PRN PRN Reason: For SBP>/=170, DBP>/=100;HR>60 Last Admin: 02/17/18 04:21 Dose: 0.1 mg Diphenhydramine HCl (Benadryl Inj) 25 mg IV.PUSH Q6H PRN PRN Reason: ITCHING Famotidine (Pepcid) 20 mg PO BID [facility] Last Admin: 02/16/18 22:47 Dose: 20 mg Famotidine (Pepcid) 10 mg PO BID [facility] Flumazenil (Romazecon Inj) 0.2 mg IV.PUSH Q1M PRN PRN Reason: OVERSEDATION Folic Acid (Folic Acid) 1 mg PO DAILY [facility] Stop: 02/22/18 08:59 Haloperidol Lactate (Haldol Inj) 1 mg IV.PUSH Q15M PRN PRN Reason: for severe agitation Heparin Sodium (Porcine) (Heparin Inj) 5,000 units SQ Q8HR [facility] Last Admin: 02/17/18 07:10 Dose: 5,000 units Sodium Chloride (Ns Inj) 500 mls @ 0 mls/hr IV.SIG BOLUS [facility] Last Infusion: 02/16/18 22:57 Dose: Infused Sodium Chloride (Ns Inj) 500 mls @ 0 mls/hr IV.SIG BOLUS [facility] Last Infusion: 02/16/18 22:58 Dose: Infused Sodium Chloride (Ns Inj) 1,000 mls @ 125 mls/hr IV.CONT .Q8H [facility] Last Admin: 02/17/18 06:46 Dose: 125 mls/hr Lorazepam (Ativan) 1 mg PO Q4H PRN PRN Reason: for CIWA 8-10 Lorazepam (Ativan) 2 mg PO Q2H PRN PRN Reason: for CIWA 11-14 Lorazepam (Ativan Inj) 2 mg IV.PUSH Q2H PRN PRN Reason: for CIWA 11-14 Lorazepam (Ativan Inj) 2 mg IV.PUSH Q1H PRN PRN Reason: for CIWA 15-20 Lorazepam (Ativan Inj) 1 mg IV.PUSH Q4H PRN PRN Reason: for CIWA 8-10 Lorazepam (Ativan Inj) 2 mg IV.PUSH Q15M PRN PRN Reason: for CIWA > 20 Multivitamins/Minerals (Theragran-M) 1 tab PO DAILY [facility] Stop: 02/22/18 08:59 Ondansetron HCl (Zofran Inj) 4 mg IV.PUSH Q6H PRN PRN Reason: NAUSEA OR VOMITING Sodium Chloride (Ns Flush) 2 ml IV.FLUSH PRN PRN PRN Reason: FLUSH AFTER USING IV ACCESS Thiamine HCl (Vitamin B1) 100 mg PO DAILY [facility] Allergies Allergy/AdvReac Type Severity Reaction Status Date / Time No Known Allergies Allergy Verified 02/16/18 17:39 Exam Vital signs: Vital Signs 02/16/18 17:35 02/16/18 17:57 02/16/18 19:48 Temperature 98.1 F Pulse Rate 106 H 106 H 105 H Respiratory Rate 18 18 16 Blood Pressure 152/72 H 161/60 H 170/83 H Pulse Oximetry 100 98 98 02/16/18 20:00 02/16/18 21:00 02/17/18 00:00 Temperature 98.2 F 97.0 F L Pulse Rate 104 H 104 H 107 H Respiratory Rate 18 16 18 Blood Pressure 184/83 H 164/74 H 181/85 H Pulse Oximetry 94 L 100 96 02/17/18 04:00 02/17/18 08:00 Temperature 97.4 F L 96.4 F L Pulse Rate 117 H 99 H Respiratory Rate 18 Blood Pressure 199/91 H 131/83 Pulse Oximetry 97 Intake & Output 02/16/18 02/17/18 02/17/18 18:59 06:59 18:59 Intake Total 1999 Balance 1999 Weight 78.5 kg 78.7 kg Intake: IV 1999 NS Inj 1,000 ML @ 125 mls/hr IV 1000 / 1000 .CONT .Q8H MARK Rx#:[id number] NS Inj 500 ML @ Wide Open IV. 1000 / 1000 SIG BOLUS MARK Rx#:[id number] Other: Weight On Admission 78.7 kg Narrative: GENERAL: Well-developed, well-nourished unkept male patient, appears well of her stated age in NAD. AAO x3. SKIN: Warm and dry. Scattered multiple scabbing and abrasions HEAD: Normocephalic. Atraumatic. EYES: Pupils equal and round. No scleral icterus. No injection or drainage. ENT: No nasal bleeding or discharge. Mucous membranes pink and moist. NECK: Supple. Trachea midline. CARDIOVASCULAR: Regular rate and rhythm. S1, S2 noted. No murmur appreciated. RESPIRATORY: No accessory muscle use. Clear to auscultation. Breath sounds equal bilaterally. GASTROINTESTINAL: Abdomen soft, non-tender, nondistended. Normoactive bowel sounds x4. MUSCULOSKELETAL: No obvious deformities. Extremities without clubbing, cyanosis , or edema. NEUROLOGICAL: Awake and alert. No obvious cranial nerve deficits. Motor grossly within normal limits. 5/5 muscle strength in bilateral upper and lower extremities. Normal speech. PSYCHIATRIC: Appropriate mood and affect; insight and judgment normal. Results - Labs CBC & Chem 7: 02/16/18 18:10 02/16/18 18:10 Labs: Laboratory Results - last 24 hr 02/16/18 02/16/18 02/16/18 18:10 18:10 18:10 CBC w Diff Auto diff final WBC 12.2 H RBC 2.83 L Hgb 10.2 L Hct 30.5 L MCV 107.6 H MCH 36.1 H MCHC 33.6 RDW 14.2 Plt Count 419 MPV 7.4 Neut % (Auto) 78.8 H Lymph % (Auto) 7.3 L [place] % (Auto) 13.1 H Eos % (Auto) 0.6 Baso % (Auto) 0.2 Neut # (Auto) 9.6 H Lymph # (Auto) 0.9 L [place] # (Auto) 1.6 H Eos # (Auto) 0.1 Baso # (Auto) 0.0 WBC Differential . Differential Comment . PT 10.0 INR 1.0 APTT 31.3 H Sodium 133 L Potassium 4.4 Chloride 97 L Carbon Dioxide 21.6 Anion Gap 14 BUN 52 H Creatinine 2.10 H Estimated GFR 32 L Random Glucose 88 Calcium 8.7 Total Bilirubin 0.6 AST 20 ALT 20 Alkaline Phosphatase 106 Total Creatine Kinase 36 L Troponin I Less than 0.02 L Total Protein 7.9 Albumin 2.2 L Serum Alcohol Less than 3 - Imaging Impressions Chest X-Ray 02/16/18 18:04 CONCLUSION: No evidence of acute cardiopulmonary disease. Head CT 02/16/18 18:04 CONCLUSION: 1. No acute intracranial abnormality. 2. Atrophy and chronic white matter changes. 3. Mild ventriculomegaly similar to before. . Knee X-Ray 02/16/18 18:07 CONCLUSION: No bony abnormality demonstrated. Nonspecific joint effusion. Peripheral artery disease. Caprini VTE Risk Assessment Caprini VTE Risk Assessment: Moderate/High Risk (score >= 2) Caprini Risk Assessment Model: Point Value = 1 Point Value = 2 Point Value = 3 Point Value = 5 Age 41-60 Minor surgery BMI > 25 kg/m2 Swollen legs Varicose veins or History of unexplained or recurrent spontaneous Oral contraceptives or hormone replacement Sepsis (< 1 month) Serious lung disease, including pneumonia (< 1 month) Abnormal pulmonary function Acute myocardial infarction Congestive heart failure (< 1 month) History of inflammatory bowel disease Medical patient at bed rest Age 61-74 Arthroscopic surgery Major open surgery (> 45 min) Laparoscopic surgery (> 45 min) Malignancy Confined to bed (> 72 hours) Immobilizing plaster cast Central venous access Age >= 75 History of VTE Family history of VTE Factor V Leiden Prothrombin [id number] Lupus anticoagulant Anticardiolipin antibodies Elevated serum homocysteine Heparin-induced thrombocytopenia Other congenital or acquired thrombophilia Stroke (< 1 month) Elective arthroplasty Hip, pelvis, or leg fracture Acute spinal cord injury (< 1 month) Prophylaxis Regimen: Total Risk Factor Score Risk Level Prophylaxis Regimen 0-1 Low Early ambulation 2 Moderate Order ONE of the following: *Sequential Compression Device (SCD) *Heparin 5000 units SQ BID 3-4 Higher Order ONE of the following medications: *Heparin 5000 units SQ TID *Enoxaparin/Lovenox 40 mg SQ daily (WT < 150 kg, CrCl > 30 mL/min) *Enoxaparin/Lovenox 30 mg SQ daily (WT < 150 kg, CrCl > 10-29 mL/min) *Enoxaparin/Lovenox 30 mg SQ BID (WT < 150 kg, CrCl > 30 mL/min) AND/OR *Sequential Compression Device (SCD) 5 or more Highest Order ONE of the following medications: *Heparin 5000 units SQ TID (Preferred with Epidurals) *Enoxaparin/Lovenox 40 mg SQ daily (WT < 150 kg, CrCl > 30 mL/min) *Enoxaparin/Lovenox 30 mg SQ daily (WT < 150 kg, CrCl > 10-29 mL/min) *Enoxaparin/Lovenox 30 mg SQ BID (WT < 150 kg, CrCl > 30 mL/min) AND *Sequential Compression Device (SCD) Assessment and Plan - Assessment (1) Alcohol withdrawal Code(s): F10.239 - Alcohol dependence with withdrawal, unspecified Status: Acute (2) Falls frequently Code(s): R29.6 - Repeated falls Status: Acute - Plan This is a 67-year-old male patient with Acute on chronic alcohol abuse Multiple falls at home suspect secondary to above Left knee pain with joint effusion secondary to above -Patient presented with reports of multiple falls at home. Serum alcohol level 3. -Head CT reviewed and normal. No acute abnormalities. -Seizure precautions. High follow risk. Monitor for any withdrawals. Patient placed on CIWA protocol. -Encouraged alcohol cessation, patient does not express interest in quitting. -Placed on thiamine and multivitamin. Check folate and thiamine levels and B12. -Encourage PO intake, continue IVF for now. -Left knee x-ray reviewed and showing left knee large joint effusion. -Pain medication as needed per pain scale. Acute kidney injury -Creatinine 2.1. Upon review of his history, his baseline appears to be 2.3 in July of this year. Although prior to this he is baseline was around 1.3-1.5. -Will continue to monitor. BMP in a.m. -Continue IV hydration. Avoid nephrotoxins. Hypertension Tachycardia -Likely secondary to alcohol withdrawal. -Continue to monitor cardiac telemetry, monitor for any arrhythmias. -Clonidine as needed per parameters. Tobacco abuse: Encouraged cessation. Nicotine patch. Urticaria Possible fleas from home. -Benadryl as needed for itching. -Eucerin cream ordered as needed. -Encouraged self hygiene and bath today. DVT prophylaxis: SCDs. Ambulation. Heparin. (1) Alcohol withdrawal Qualifiers: Complication of substance-induced condition: uncomplicated Qualified Code(s) : F10.230 - Alcohol dependence with withdrawal, uncomplicated
[2018-02-17 10:27] LABS: Baso # (Auto) 0.1 th/mm3 (0.0-0.2); Baso % (Auto) 0.6 % (0.0-2.0); Eos # (Auto) 0.2 th/mm3 (0.0-0.4); Eos % (Auto) 2.6 % (0.0-4.0); Hematocrit 27.5 % (39.0-51.0); Hemoglobin 9.4 gm/dL (13.0-17.0); Mean Corpuscular HGB Conc 34.3 % (32.0-36.0); Mean Corpuscular Hemoglobin 36.3 pg (27.0-34.0); Mean Corpuscular Volume 105.7 fL (80.0-100.0); Mean Platelet Volume 7.9 fL (7.0-11.0); Mono % (Auto) 10.3 % (0.0-8.0); Neut # (Auto) 7.3 th/mm3 (1.8-7.7); Neut % (Auto) 76.5 % (16.0-70.0); Platelet Count 443 th/mm3 (150-450); Red Blood Count 2.61 mil/mm3 (4.50-5.90); Red Cell Distribution Width 14.4 % (11.6-17.2); White Blood Count 9.6 th/mm3 (4.0-11.0)
[2018-02-17 10:41] LABS: Chloride 104 meq/L (98-107); Potassium 4.1 meq/L (3.5-5.1); Sodium 137 meq/L (136-145)
[2018-02-17 10:44] LABS: Albumin 1.9 g/dL (3.4-5.0); Anion Gap 11 meq/L (5-15); Blood Urea Nitrogen 43 mg/dL (7-18); Calcium 8.6 mg/dL (8.5-10.1); Carbon Dioxide 22.1 meq/L (21.0-32.0); Glucose,Random 99 mg/dL (74-106)
[2018-02-17 10:47] LABS: Alanine Aminotransferase 16 U/L (12-78); Aspartate Aminotransferase 19 U/L (15-37); Glomerular Filtration Rate 43 mL/min (>89)
[2018-02-17 10:49] LABS: Total Protein 7.3 g/dL (6.4-8.2)
[2018-02-17 10:50] LABS: Alkaline Phosphatase 102 U/L (45-117)
[2018-02-17 14:30] LABS: Folate 13.5 ng/mL (3.1-17.5)
--- NOTE | 2018-02-17 17:22 | ECG ---
Date Performed: 02/16/2018 Time Performed: 18:28:15 PTAGE: 67 years EKG: SINUS TACHYCARDIA BORDERLINE LEFT AXIS DEVIATION RIGHT BUNDLE BRANCH BLOCK ABNORMAL ECG PREVIOUS TRACING : 01/08/2016 16.21 Since the previous tracing, no significant change noted DOCTOR: Felipe Perla Interpretating Date/Time 02/17/2018 17:21:30
[2018-02-18 05:21] LABS: Baso # (Auto) 0.1 th/mm3 (0.0-0.2); Eos # (Auto) 0.4 th/mm3 (0.0-0.4); Eos % (Auto) 4.7 % (0.0-4.0); Hematocrit 25.8 % (39.0-51.0); Hemoglobin 8.7 gm/dL (13.0-17.0); Lymph % (Auto) 12.2 % (9.0-44.0); Mean Corpuscular HGB Conc 33.9 % (32.0-36.0); Mean Corpuscular Hemoglobin 35.7 pg (27.0-34.0); Mean Corpuscular Volume 105.2 fL (80.0-100.0); Mean Platelet Volume 7.5 fL (7.0-11.0); Mono # (Auto) 1.1 th/mm3 (0.0-0.9); Neut # (Auto) 5.8 th/mm3 (1.8-7.7); Neut % (Auto) 69.1 % (16.0-70.0); Platelet Count 403 th/mm3 (150-450); Red Blood Count 2.45 mil/mm3 (4.50-5.90); Red Cell Distribution Width 14.6 % (11.6-17.2); White Blood Count 8.4 th/mm3 (4.0-11.0)
[2018-02-18 05:24] LABS: Potassium 3.9 meq/L (3.5-5.1)
[2018-02-18 05:29] LABS: Calcium 8.2 mg/dL (8.5-10.1); Carbon Dioxide 21.3 meq/L (21.0-32.0)
[2018-02-18] MEDS: Heparin - SQ 10,000 UNITS/ML Vial SQ SCH ×3 (05:39→23:11)
[2018-02-18] MEDS: Sod Chloride 0.9% Inj 1,000 ML IV.CONT SCH ×2 (06:00→17:37)
[2018-02-18] MEDS: Folic Acid 1 MG Tablet PO SCH (08:27)
[2018-02-18] MEDS: Multivitamin/Minerals Therapeutic Tablet PO SCH (08:27)
[2018-02-18] MEDS: Famotidine 20 MG Tablet PO SCH ×2 (08:27→20:45)
--- NOTE | 2018-02-18 11:22 | P.PN ---
Subjective Interval history: Follow up alcohol withdrawal and generalized weakness. Patient seen and examined , lying in bed sleeping. Awakens to voice. With mild essential tremors. Continued tachycardia overnight with hypertension. Continued on CIWA protocol. No acute complaints. Physical Exam Vital signs: Vital Signs 02/17/18 13:01 02/17/18 14:15 02/17/18 16:00 Temperature Pulse Rate 101 H 98 H 104 H Respiratory Rate 20 20 Blood Pressure 176/79 H 116/82 Pulse Oximetry 100 97 02/17/18 16:48 02/17/18 20:00 02/17/18 22:00 Temperature Pulse Rate 102 H 101 H 116 H Respiratory Rate 17 34 H Blood Pressure 160/89 H 179/88 H Pulse Oximetry 100 93 L 02/18/18 00:00 02/18/18 01:00 02/18/18 02:00 Temperature 97.5 F L Pulse Rate 110 H 104 H 100 H Respiratory Rate 28 H 14 16 Blood Pressure 145/83 H 128/76 157/86 H Pulse Oximetry 74 L 02/18/18 03:26 02/18/18 04:00 02/18/18 08:00 Temperature 98.1 F Pulse Rate 108 H 106 H 106 H Respiratory Rate 20 18 19 Blood Pressure 181/89 H 191/95 H Pulse Oximetry 98 02/18/18 08:05 02/18/18 08:27 02/18/18 09:00 Temperature Pulse Rate 110 H 102 H 100 H Respiratory Rate 17 16 17 Blood Pressure 190/89 H 168/102 H 186/85 H Pulse Oximetry 02/18/18 11:00 Temperature Pulse Rate 98 H Respiratory Rate 14 Blood Pressure 182/98 H Pulse Oximetry Intake & Output 02/17/18 02/18/18 02/18/18 18:59 06:59 18:59 Intake Total 1337 / 1337 1835.3 / 1835.3 Balance 1337 / 1337 1835.3 / 1835.3 Weight 97.4 kg Intake: IV 1337 / 1337 1715.3 / 1715.3 NS Inj 1,000 ML @ 75 mls/hr IV. 1337 / 1337 1715.3 / 1715.3 CONT .[id number] [facility] Rx#: [id number] Oral 120 / 120 Narrative: GENERAL: Well-developed, well-nourished unkept male patient, appears well of her stated age in NAD. SKIN: Warm and dry. Scattered multiple scabbing and abrasions HEAD: Normocephalic. Atraumatic. EYES: Pupils equal and round. No scleral icterus. No injection or drainage. ENT: No nasal bleeding or discharge. Mucous membranes pink and moist. NECK: Supple. Trachea midline. CARDIOVASCULAR: Regular rate and rhythm. S1, S2 noted. No murmur appreciated. RESPIRATORY: No accessory muscle use. Clear to auscultation. Breath sounds equal bilaterally. GASTROINTESTINAL: Abdomen soft, non-tender, nondistended. Normoactive bowel sounds x4. MUSCULOSKELETAL: No obvious deformities. Extremities without clubbing, cyanosis , or edema. NEUROLOGICAL: Awake and alert. No obvious cranial nerve deficits. Motor grossly within normal limits. 5/5 muscle strength in bilateral upper and lower extremities. Normal speech. PSYCHIATRIC: Appropriate mood and affect; insight and judgment normal. Results - Labs CBC & Chem 7: 02/18/18 05:05 02/18/18 05:05 Laboratory Results - last 24 hr 02/17/18 02/17/18 02/18/18 10:00 10:00 05:05 CBC w Diff Auto diff final WBC 8.4 RBC 2.45 L Hgb 8.7 L Hct 25.8 L MCV 105.2 H MCH 35.7 H MCHC 33.9 RDW 14.6 Plt Count 403 MPV 7.5 Neut % (Auto) 69.1 Lymph % (Auto) 12.2 [place] % (Auto) 13.0 H Eos % (Auto) 4.7 H Baso % (Auto) 1.0 Neut # (Auto) 5.8 Lymph # (Auto) 1.0 [place] # (Auto) 1.1 H Eos # (Auto) 0.4 Baso # (Auto) 0.1 WBC Differential . Differential Comment . Sodium Potassium Chloride Carbon Dioxide Anion Gap BUN Creatinine Estimated GFR Random Glucose Uric Acid 8.7 H Calcium Vitamin B12 223 Folate 13.5 02/18/18 05:05 CBC w Diff WBC RBC Hgb Hct MCV MCH MCHC RDW Plt Count MPV Neut % (Auto) Lymph % (Auto) [place] % (Auto) Eos % (Auto) Baso % (Auto) Neut # (Auto) Lymph # (Auto) [place] # (Auto) Eos # (Auto) Baso # (Auto) WBC Differential Differential Comment Sodium 139 Potassium 3.9 Chloride 107 Carbon Dioxide 21.3 Anion Gap 11 BUN 38 H Creatinine 1.40 H Estimated GFR 51 L Random Glucose 88 Uric Acid Calcium 8.2 L Vitamin B12 Folate Assessment and Plan - Assessment (1) Alcohol withdrawal Code(s): F10.239 - Alcohol dependence with withdrawal, unspecified Status: Acute (2) Falls frequently Code(s): R29.6 - Repeated falls Status: Acute - Plan This is a 67-year-old male patient with Acute on chronic alcohol abuse Multiple falls at home suspect secondary to above -Patient presented with reports of multiple falls at home. Serum alcohol level 3. -Head CT reviewed and normal. No acute abnormalities. -Seizure precautions. High follow risk. Monitor for any withdrawals. Patient placed on CIWA protocol. -Encouraged alcohol cessation, patient does not express interest in quitting. -Placed on thiamine and multivitamin. -Encourage PO intake, continue IVF for now. -Left knee x-ray reviewed and showing left knee large joint effusion suspect secondary to falls. Will continue to monitor. No need for aspiration per IR. -Pain medication as needed per pain scale. Acute kidney injury, improving. -Creatinine 2.1 on presentation. Improved to 1.4 today. -Will continue to monitor. -Continue IV hydration. Avoid nephrotoxins. Hypertension Tachycardia -Likely secondary to alcohol withdrawal. -Continue to monitor cardiac telemetry, monitor for any arrhythmias. -Clonidine as needed per parameters. Tobacco abuse: Encouraged cessation. Nicotine patch. Urticaria Possible fleas from home. -Benadryl as needed for itching. -Eucerin cream ordered as needed. -Encouraged self hygiene and bathing. DVT prophylaxis: SCDs. Ambulation. Heparin. Discharge Planning: PT is recommending rehab for dc although in obs status. Patient is still with alcohol withdrawals and DTs. CM assisting with discharge plans. (1) Alcohol withdrawal Qualifiers: Complication of substance-induced condition: uncomplicated Qualified Code(s) : F10.230 - Alcohol dependence with withdrawal, uncomplicated
[2018-02-19] MEDS: Sod Chloride 0.9% Inj 1,000 ML IV.CONT SCH (06:03)
[2018-02-19] MEDS: Heparin - SQ 10,000 UNITS/ML Vial SQ SCH ×3 (06:04→22:49)
--- NOTE | 2018-02-19 08:40 | P.PN ---
Subjective Interval history: Follow-up alcohol withdrawal and delirium tremens. Patient seen and examined, lying in bed in no apparent distress. He is awake today. Essential tremors present. Patient is a and O x2, confused to year. Attempted to reorient. Spoke to bedside RN who reports that patient pulled out 2 IVs today. Patient is tachycardic today. Denies any pain. We will continue to monitor for withdrawals. Knee evaluated today is improved. Continue physical therapy efforts. Physical Exam Vital signs: Vital Signs 02/18/18 09:00 02/18/18 11:00 02/18/18 12:00 Temperature 96.6 F L Pulse Rate 100 H 98 H 95 H Respiratory Rate 17 14 14 Blood Pressure 186/85 H 182/98 H 153/102 H Pulse Oximetry 100 02/18/18 16:00 02/18/18 20:00 02/18/18 23:59 Temperature 97.6 F 98.5 F 97.8 F Pulse Rate 95 H 116 H 102 H Respiratory Rate 14 20 15 Blood Pressure 153/102 H 178/94 H 169/90 H Pulse Oximetry 100 97 97 02/19/18 00:00 02/19/18 04:09 Temperature 97.8 F Pulse Rate 100 H 98 H Respiratory Rate 14 12 Blood Pressure 173/84 H Pulse Oximetry 96 Intake & Output 02/18/18 02/19/18 02/19/18 18:59 06:59 18:59 Intake Total 947.7 / 947.7 1120 / 1120 Output Total 300 / 300 Balance 947.7 / 947.7 820 / 820 Weight 76 kg Intake: IV 947.7 / 947.7 1000 / 1000 NS Inj 1,000 ML @ 75 mls/hr IV. 947.7 / 947.7 1000 / 1000 CONT .[id number] [facility] Rx#: [id number] Oral 120 / 120 Output: Urine 300 / 300 Other: # Incontinent Voids 5 Date of Last Bowel Movement 02/18/18 Narrative: GENERAL: Well-developed, well-nourished unkept male patient, appears well above stated age in NAD. SKIN: Warm and dry. Scattered multiple scabbing and abrasions HEAD: Normocephalic. Atraumatic. EYES: Pupils equal and round. No scleral icterus. No injection or drainage. ENT: No nasal bleeding or discharge. Mucous membranes pink and moist. NECK: Supple. Trachea midline. CARDIOVASCULAR: Regular rate and rhythm. S1, S2 noted. No murmur appreciated. RESPIRATORY: No accessory muscle use. Clear to auscultation. Breath sounds equal bilaterally. GASTROINTESTINAL: Abdomen soft, non-tender, nondistended. Normoactive bowel sounds x4. MUSCULOSKELETAL:Extremities without clubbing, cyanosis, or edema. Left knee swelling has improved. NEUROLOGICAL: Awake and alert. No obvious cranial nerve deficits. Motor grossly within normal limits. 5/5 muscle strength in bilateral upper and lower extremities. Normal speech. Results - Labs CBC & Chem 7: 02/19/18 09:00 02/18/18 05:05 Laboratory Results - last 24 hr 02/17/18 10:00 Thiamine 133 Assessment and Plan - Assessment (1) Alcohol withdrawal Code(s): F10.239 - Alcohol dependence with withdrawal, unspecified Status: Acute (2) Falls frequently Code(s): R29.6 - Repeated falls Status: Acute - Plan This is a 67-year-old male patient with Acute on chronic alcohol abuse Multiple falls at home suspect secondary to above -Patient presented with reports of multiple falls at home. Serum alcohol level 3. -Head CT reviewed and normal. No acute abnormalities. -Seizure precautions. High follow risk. Monitor for any withdrawals. Patient placed on CIWA protocol. -Encouraged alcohol cessation, patient does not express interest in quitting. -Placed on thiamine and multivitamin. -Encourage PO intake, tolerating p.o. intake. Will DC IV fluid. -Left knee x-ray reviewed and showing left knee large joint effusion suspect secondary to falls. Will continue to monitor. No need for aspiration per IR. Swelling improving. -Pain medication as needed per pain scale. Acute kidney injury, improving. -Creatinine 2.1 on presentation. Improved to 1.4, awaiting labs today. -Will continue to monitor. -Avoid nephrotoxins. Hypertension Tachycardia -Likely secondary to alcohol withdrawal. -Continue to monitor cardiac telemetry, monitor for any arrhythmias. No arrhythmias overnight. -Continued tachycardia. Patient does not look to be in any distress. Will add metoprolol. Monitor trends. -Clonidine as needed per parameters. Tobacco abuse: Encouraged cessation. Nicotine patch. Urticaria Possible fleas from home. -Benadryl as needed for itching. -Eucerin cream ordered as needed. -Encouraged self hygiene and bathing. DVT prophylaxis: SCDs. Ambulation. Heparin. Discharge Planning: Awaiting clinical improvement. (1) Alcohol withdrawal Qualifiers: Complication of substance-induced condition: uncomplicated Qualified Code(s) : F10.230 - Alcohol dependence with withdrawal, uncomplicated
[2018-02-19] MEDS: Famotidine 20 MG Tablet PO SCH ×2 (09:07→20:08)
[2018-02-19] MEDS: Folic Acid 1 MG Tablet PO SCH (09:07)
[2018-02-19] MEDS: Multivitamin/Minerals Therapeutic Tablet PO SCH (09:07)
[2018-02-19 09:19] LABS: Baso # (Auto) 0.1 th/mm3 (0.0-0.2); Baso % (Auto) 0.8 % (0.0-2.0); Eos # (Auto) 0.7 th/mm3 (0.0-0.4); Hematocrit 30.9 % (39.0-51.0); Hemoglobin 10.6 gm/dL (13.0-17.0); Lymph # (Auto) 0.9 th/mm3 (1.0-4.8); Lymph % (Auto) 10.6 % (9.0-44.0); Mean Corpuscular HGB Conc 34.2 % (32.0-36.0); Mean Corpuscular Volume 105.1 fL (80.0-100.0); Mean Platelet Volume 7.5 fL (7.0-11.0); Mono # (Auto) 0.8 th/mm3 (0.0-0.9); Mono % (Auto) 9.8 % (0.0-8.0); Neut % (Auto) 70.8 % (16.0-70.0); Platelet Count 517 th/mm3 (150-450); Red Blood Count 2.94 mil/mm3 (4.50-5.90); Red Cell Distribution Width 14.6 % (11.6-17.2); White Blood Count 8.5 th/mm3 (4.0-11.0)
[2018-02-19] MEDS: Metoprolol Tartrate 25 MG Tablet PO SCH ×2 (12:18→20:08)
[2018-02-19 12:20] LABS: Calcium 9.1 mg/dL (8.5-10.1); Potassium 4.1 meq/L (3.5-5.1)
[2018-02-20] MEDS: Heparin - SQ 10,000 UNITS/ML Vial SQ SCH ×3 (05:03→21:15)
--- NOTE | 2018-02-20 08:56 | P.PNIM ---
Subjective Interval history: Follow up alcohol withdrawal. Patient seen and examined, lying in bed confused and in restraints. Has pulled out multiple IVs. DTs present. Tachycardic. Eating well without any nausea or vomiting. Denies any chest pain. Physical Exam Vital signs: Vital Signs 02/19/18 11:53 02/19/18 16:00 02/19/18 20:00 Temperature 97.5 F L 97.8 F 97.9 F Pulse Rate 86 Respiratory Rate 14 Blood Pressure 150/73 H Pulse Oximetry 96 02/19/18 22:50 02/20/18 00:00 02/20/18 02:15 Temperature 97.6 F Pulse Rate 92 H 76 84 Respiratory Rate 18 14 22 Blood Pressure 189/90 H 148/84 H 196/98 H Pulse Oximetry 98 96 96 02/20/18 04:00 02/20/18 05:00 02/20/18 06:00 Temperature 97.5 F L Pulse Rate 84 96 H 86 Respiratory Rate 13 18 24 Blood Pressure 183/83 H 164/94 H 162/78 H Pulse Oximetry 96 96 96 Intake & Output 02/19/18 02/20/18 02/20/18 18:59 06:59 18:59 Intake Total 1430 / 1430 Output Total 500 / 500 Balance 930 / 930 Weight 75.2 kg Intake: IV 950 / 950 NS Inj 1,000 ML @ 42 mls/hr IV. 950 / 950 CONT .[id number] [facility] Rx#: [id number] Oral 480 / 480 Output: Urine 500 / 500 Other: # Urine Diapers 3 Date of Last Bowel Movement 02/19/18 02/19/18 Narrative: GENERAL: Well-developed, well-nourished unkept male patient, appears well above stated age in NAD. In restraints. SKIN: Warm and dry. Scattered multiple scabbing and abrasions HEAD: Normocephalic. Atraumatic. EYES: Pupils equal and round. No scleral icterus. No injection or drainage. ENT: No nasal bleeding or discharge. Mucous membranes pink and moist. NECK: Supple. Trachea midline. CARDIOVASCULAR: Regular rate and rhythm. S1, S2 noted. No murmur appreciated. RESPIRATORY: No accessory muscle use. Rhonchi noted throughout. Breath sounds equal bilaterally. GASTROINTESTINAL: Abdomen soft, non-tender, nondistended. Normoactive bowel sounds x4. MUSCULOSKELETAL:Extremities without clubbing, cyanosis, or edema. Left knee swelling has improved. NEUROLOGICAL: Awake and alert. No obvious cranial nerve deficits. Motor grossly within normal limits. 5/5 muscle strength in bilateral upper and lower extremities. Normal speech. Results - Labs CBC & Chem 7: 02/19/18 09:00 02/19/18 09:00 Laboratory Results - last 24 hr 02/19/18 02/19/18 09:00 09:00 CBC w Diff Auto diff final WBC 8.5 RBC 2.94 L Hgb 10.6 L Hct 30.9 L MCV 105.1 H MCH 36.0 H MCHC 34.2 RDW 14.6 Plt Count 517 H MPV 7.5 Neut % (Auto) 70.8 H Lymph % (Auto) 10.6 [place] % (Auto) 9.8 H Eos % (Auto) 8.0 H Baso % (Auto) 0.8 Neut # (Auto) 6.0 Lymph # (Auto) 0.9 L [place] # (Auto) 0.8 Eos # (Auto) 0.7 H Baso # (Auto) 0.1 WBC Differential . Differential Comment . Sodium 143 Potassium 4.1 Chloride 105 Carbon Dioxide 22.0 Anion Gap 16 H BUN 36 H Creatinine 1.38 H Estimated GFR 52 L Random Glucose 103 Calcium 9.1 D Assessment and Plan - Assessment (1) Alcohol withdrawal Code(s): F10.239 - Alcohol dependence with withdrawal, unspecified Status: Acute (2) Falls frequently Code(s): R29.6 - Repeated falls Status: Acute - Plan This is a 67-year-old male patient with Acute on chronic alcohol abuse Multiple falls at home suspect secondary to above -Patient presented with reports of multiple falls at home. Serum alcohol level 3. -Head CT reviewed and normal. No acute abnormalities. -Seizure precautions. High follow risk. Monitor for any withdrawals. Patient placed on CIWA protocol. -Encouraged alcohol cessation, patient does not express interest in quitting. -Placed on thiamine and multivitamin. -Encourage PO intake, tolerating p.o. intake. Will DC IV fluid. -Left knee x-ray reviewed and showing left knee large joint effusion suspect secondary to falls. Will continue to monitor. No need for aspiration per IR. Swelling improving. -Pain medication as needed per pain scale. Acute kidney injury, improving. -Creatinine 2.1 on presentation. Improved to 1.38 -Will continue to monitor. -Avoid nephrotoxins. Hypertension Tachycardia -Likely secondary to alcohol withdrawal. -Continue to monitor cardiac telemetry, monitor for any arrhythmias. No arrhythmias overnight. -Continued tachycardia. Patient does not look to be in any distress. Added metoprolol and lisinopril. Monitor trends. -Clonidine as needed per parameters. Tobacco abuse: Encouraged cessation. Nicotine patch. Urticaria Possible fleas from home. -Benadryl as needed for itching. -Eucerin cream ordered as needed. -Encouraged self hygiene and bathing. DVT prophylaxis: SCDs. Ambulation. Heparin. Discharge Planning: Awaiting clinical improvement. (1) Alcohol withdrawal Qualifiers: Complication of substance-induced condition: uncomplicated Qualified Code(s) : F10.230 - Alcohol dependence with withdrawal, uncomplicated
[2018-02-20] MEDS: Multivitamin/Minerals Therapeutic Tablet PO SCH (09:41)
[2018-02-20] MEDS: Famotidine 20 MG Tablet PO SCH ×2 (09:41→21:15)
[2018-02-20] MEDS: Folic Acid 1 MG Tablet PO SCH (09:41)
[2018-02-20] MEDS: Metoprolol Tartrate 25 MG Tablet PO SCH ×2 (09:41→21:15)
[2018-02-20] MEDS: Lisinopril 10 MG Tablet PO SCH (09:42)
[2018-02-21] MEDS: Heparin - SQ 10,000 UNITS/ML Vial SQ SCH ×3 (05:38→21:13)
[2018-02-21 07:06] LABS: Potassium 3.9 meq/L (3.5-5.1)
[2018-02-21 07:13] LABS: Carbon Dioxide 21.5 meq/L (21.0-32.0)
--- NOTE | 2018-02-21 09:39 | P.PNIM ---
Subjective Interval history: Follow-up alcohol withdrawal. Patient seen and examined, sitting up in bed awake. Alert and oriented x2, confused to year. Patient follows all commands with no neurological deficit. He has been eating well without any abdominal pain, nausea or vomiting. Denies any shortness of breath or chest pain. Is still in restraints. Will continue alcohol withdrawal treatment. Continue physical therapy daily. Encourage out of bed to chair as tolerated. Discussed with bedside RN, no acute complaints. Physical Exam Vital signs: Vital Signs 02/20/18 10:00 02/20/18 10:10 02/20/18 11:00 Temperature Pulse Rate 100 H 94 H 76 Respiratory Rate 16 20 25 H Blood Pressure 203/169 H 118/77 100/64 Pulse Oximetry 02/20/18 12:00 02/20/18 13:00 02/20/18 14:00 Temperature 97.6 F Pulse Rate 70 70 78 Respiratory Rate 23 20 15 Blood Pressure 120/79 110/78 110/82 Pulse Oximetry 02/20/18 15:00 02/20/18 16:00 02/20/18 17:00 Temperature Pulse Rate 80 92 H 88 Respiratory Rate 23 33 H 29 H Blood Pressure 136/97 H 96/73 L 96/74 L Pulse Oximetry 02/20/18 18:00 02/20/18 20:00 02/21/18 00:00 Temperature 97.6 F 97.7 F Pulse Rate 88 82 86 Respiratory Rate 17 13 14 Blood Pressure 122/88 119/88 111/85 Pulse Oximetry 99 99 02/21/18 04:00 Temperature 97.4 F L Pulse Rate 104 H Respiratory Rate 21 Blood Pressure 168/87 H Pulse Oximetry Intake & Output 02/20/18 02/21/18 02/21/18 18:59 06:59 18:59 Intake Total 480 / 480 Output Total 1000 / 1000 Balance -520 / -520 Weight 74.5 kg Intake: Oral 480 / 480 Output: Urine 1000 / 1000 Other: # Urine Diapers 5 Date of Last Bowel Movement 02/19/18 Narrative: GENERAL: Well-developed, well-nourished unkept male patient, appears well above stated age in NAD. In restraints. SKIN: Warm and dry. Scattered multiple scabbing and abrasions HEAD: Normocephalic. Atraumatic. EYES: Pupils equal and round. No scleral icterus. No injection or drainage. ENT: No nasal bleeding or discharge. Mucous membranes pink and moist. NECK: Supple. Trachea midline. CARDIOVASCULAR: Regular rate and rhythm. S1, S2 noted. No murmur appreciated. RESPIRATORY: No accessory muscle use. Clear throughout. Breath sounds equal bilaterally. GASTROINTESTINAL: Abdomen soft, non-tender, nondistended. Normoactive bowel sounds x4. MUSCULOSKELETAL:Extremities without clubbing, cyanosis, or edema. Left knee swelling has improved. NEUROLOGICAL: Awake and alert. No obvious cranial nerve deficits. Motor grossly within normal limits. 5/5 muscle strength in bilateral upper and lower extremities. Normal speech. Results - Labs CBC & Chem 7: 02/19/18 09:00 02/21/18 06:21 Laboratory Results - last 24 hr 02/21/18 06:21 Sodium 142 Potassium 3.9 Chloride 108 H Carbon Dioxide 21.5 Anion Gap 13 BUN 35 H Creatinine 1.20 Estimated GFR 61 L Random Glucose 94 Calcium 9.0 Assessment and Plan - Assessment (1) Alcohol withdrawal Code(s): F10.239 - Alcohol dependence with withdrawal, unspecified Status: Acute (2) Falls frequently Code(s): R29.6 - Repeated falls Status: Acute - Plan This is a 67-year-old male patient with Acute on chronic alcohol abuse Alcohol withdrawal and delirium tremens Alcohol encephalopathy, improving. Multiple falls at home suspect secondary to above -Patient presented with reports of multiple falls at home. Serum alcohol level 3. -Head CT reviewed and normal. No acute abnormalities. -Seizure precautions. High follow risk. Monitor for any withdrawals. Patient placed on CIWA protocol. -Encouraged alcohol cessation, patient does not express interest in quitting. -Placed on thiamine and multivitamin. Continue. -Encourage PO intake, tolerating p.o. intake. Will DC IV fluid. -Left knee x-ray reviewed and showing left knee large joint effusion suspect secondary to falls. Will continue to monitor. No need for aspiration per IR. Improved. -Pain medication as needed per pain scale. -Continue Librium. Check ammonia. Acute kidney injury, improved. -Creatinine 2.1 on presentation. Improved. -Will continue to monitor. -Avoid nephrotoxins. Hypertension Tachycardia -Likely secondary to alcohol withdrawal. -Continue to monitor cardiac telemetry, monitor for any arrhythmias. No arrhythmias overnight. -Continued tachycardia. Patient does not look to be in any distress. Added metoprolol and lisinopril. Monitor trends. Tobacco abuse: Encouraged cessation. Nicotine patch. Urticaria Possible fleas from home. -Benadryl as needed for itching. -Eucerin cream ordered as needed. -Encouraged self hygiene and bathing. DVT prophylaxis: SCDs. Ambulation. Heparin. Discharge Planning: Awaiting clinical improvement. Patient is still weak. Continue PT daily, Friday through Friday twice daily. (1) Alcohol withdrawal Qualifiers: Complication of substance-induced condition: uncomplicated Qualified Code(s) : F10.230 - Alcohol dependence with withdrawal, uncomplicated
[2018-02-21] MEDS: Metoprolol Tartrate 25 MG Tablet PO SCH ×2 (13:07→21:11)
[2018-02-21] MEDS: Folic Acid 1 MG Tablet PO SCH (13:07)
[2018-02-21] MEDS: Famotidine 20 MG Tablet PO SCH ×2 (13:08→21:12)
[2018-02-21] MEDS: Lisinopril 10 MG Tablet PO SCH (13:09)
[2018-02-21] MEDS: Multivitamin/Minerals Therapeutic Tablet PO SCH (13:10)
[2018-02-22] MEDS: Heparin - SQ 10,000 UNITS/ML Vial SQ SCH ×3 (05:35→21:14)
[2018-02-22] MEDS: Metoprolol Tartrate 25 MG Tablet PO SCH ×2 (07:54→08:15)
[2018-02-22] MEDS: Lisinopril 10 MG Tablet PO SCH ×2 (07:54→08:15)
[2018-02-22] MEDS: Famotidine 20 MG Tablet PO SCH ×3 (07:54→21:14)
--- NOTE | 2018-02-22 08:09 | P.PNIM ---
Subjective Interval history: Follow-up alcohol withdrawal and generalized weakness. Patient seen and examined, lying in bed sleeping, awakens and arouses to voice. He is pleasantly confused a and O x2, confused to year. Patient follows all commands without any neurological deficits. Continued PT 7 days a week. Vital signs are stable. RN at bedside encouraged to get patient out of bed as tolerated. Physical Exam Vital signs: Vital Signs 02/21/18 08:49 02/21/18 13:08 02/21/18 16:04 Temperature 98.1 F 97.5 F L 97.7 F Pulse Rate 98 H 96 H 86 Respiratory Rate 26 H 17 18 Blood Pressure 124/79 143/91 H 118/82 Pulse Oximetry 98 97 95 02/21/18 20:00 02/22/18 00:00 02/22/18 04:00 Temperature 97.6 F 97.7 F 98 F Pulse Rate 94 H 100 H 105 H Respiratory Rate 16 20 13 Blood Pressure 123/72 117/94 H 104/76 Pulse Oximetry 98 98 100 Intake & Output 02/21/18 02/22/18 02/22/18 18:59 06:59 18:59 Intake Total 400 / 400 480 / 480 Balance 400 / 400 480 / 480 Weight 73.2 kg Intake: Oral 400 / 400 480 / 480 Other: # Voids 3 2 # Urine Diapers 2 Date of Last Bowel Movement 02/19/18 02/19/18 Narrative: GENERAL: Well-developed, well-nourished unkept male patient, appears well above stated age in NAD. In restraints. SKIN: Warm and dry. Scattered multiple scabbing and abrasions HEAD: Normocephalic. Atraumatic. EYES: Pupils equal and round. No scleral icterus. No injection or drainage. ENT: No nasal bleeding or discharge. Mucous membranes pink and moist. NECK: Supple. Trachea midline. CARDIOVASCULAR: Regular rate and rhythm. S1, S2 noted. No murmur appreciated. RESPIRATORY: No accessory muscle use. Clear throughout. Breath sounds equal bilaterally. GASTROINTESTINAL: Abdomen soft, non-tender, nondistended. Normoactive bowel sounds x4. MUSCULOSKELETAL:Extremities without clubbing, cyanosis, or edema. Left knee swelling has improved. NEUROLOGICAL: Awake and alert. No obvious cranial nerve deficits. Motor grossly within normal limits. 5/5 muscle strength in bilateral upper and lower extremities. Normal speech. Results - Labs CBC & Chem 7: 02/19/18 09:00 02/21/18 06:21 Laboratory Results - last 24 hr 02/21/18 11:25 Ammonia 27 Assessment and Plan - Assessment (1) Alcohol withdrawal Code(s): F10.239 - Alcohol dependence with withdrawal, unspecified Status: Acute (2) Falls frequently Code(s): R29.6 - Repeated falls Status: Acute - Plan This is a 67-year-old male patient with Acute on chronic alcohol abuse Alcohol withdrawal and delirium tremens, improving Alcohol encephalopathy, improving. Multiple falls at home suspect secondary to above -Patient presented with reports of multiple falls at home. Serum alcohol level 3. -Head CT reviewed and normal. No acute abnormalities. -Seizure precautions. High follow risk. Monitor for any withdrawals. Patient placed on CIWA protocol. -Encouraged alcohol cessation, patient does not express interest in quitting. -Placed on thiamine and multivitamin. Continue. -Encourage PO intake, tolerating p.o. intake. -Left knee x-ray reviewed and showing left knee large joint effusion suspect secondary to falls. Will continue to monitor. No need for aspiration per IR. Improved. -Pain medication as needed per pain scale. -We will DC Librium. Ammonia level normal. Acute kidney injury, improved. -Creatinine 2.1 on presentation. Improved. -Will continue to monitor. -Avoid nephrotoxins. Hypertension Tachycardia -Likely secondary to alcohol withdrawal. -Continue to monitor cardiac telemetry, monitor for any arrhythmias. No arrhythmias overnight. -Continued tachycardia. Patient does not look to be in any distress. Added metoprolol and lisinopril. Monitor trends. Tobacco abuse: Encouraged cessation. Nicotine patch. Urticaria Possible fleas from home. -Benadryl as needed for itching. -Eucerin cream ordered as needed. -Encouraged self hygiene and bathing. DVT prophylaxis: SCDs. Ambulation. Heparin. Discharge Planning: Awaiting clinical improvement. Patient is still weak. Continue PT daily, & Friday through Friday twice daily. (1) Alcohol withdrawal Qualifiers: Complication of substance-induced condition: uncomplicated Qualified Code(s) : F10.230 - Alcohol dependence with withdrawal, uncomplicated
[2018-02-22] MEDS: Sod Chloride 0.9% Inj 1,000 ML IV.SIG SCH ×2 (18:50→20:35)
[2018-02-22] MEDS ORDERED: Vancomycin Consult Pharmacy OTHER PRN (19:11)
[2018-02-22] MEDS ORDERED: Vancomycin Inj 1,250 MG in Sodium Chlor 0.9% Inj 250 ML IV.SIG ONE (19:12)
--- NOTE | 2018-02-22 19:25 | P.CONCC ---
History of Present Illness Service: Critical Care Medicine Consult date: 02/22/18 Requesting Physician: Ivy Gonzales Reason for Consult: hypotension Primary Care Provider: No Primary Care Physician Family Provider: No Primary Care Physician Chief Complaint: Multiple falls at home, knee pain, report of seizures History of Present Illness: I was called emergently to the bedside by the patient's nurse for severe hypotension 40s/20s. When I arrived, the patient was sitting up in a chair. I instructed the nurse to place the patient back in bed. In my brief review of the medical record, this is a 67yM with etoh dependence who has been here since 02/16 for etoh withdraw. it appears he has been clinically improving. nurses today report he has had poor po intake, and recently has been started back on mivf. When I examined the patient, he denies sob, chest pain, fevers, chills, abd pain, n/v/d/c. no new symptoms. Of note, his NIBP cuff on his right arm is saturated in a foul smelling serous fluid, and the skin underlying is macerated , red, and indurated. there is no fluctuance to suggest an abscess, but early cellulitis cannot be excluded. the patient has not had labs today, but yesterdays labs are remarkable for an improving Cr and a normal wbc. the patient has remained afebrile for the last 24h. remainder of the ROS negative. I ordered stat CBC, CMP, lactic acid, blood cultures, u/a and 2L crystalloid bolus. patient's blood pressure is now improving. Review of Systems All other systems reviewed negative except as stated in HPI PMFSH - History History Provided By: Patient, Medical Record - Medical History Medical History: Medical History (Last Reviewed 02/22/18 @ 19:16 by Josesito Chicas MD) Hypertension - Surgical History Surgical History: Surgical History (Last Reviewed 02/22/18 @ 19:16 by Josesito Chicas MD) H/O bilateral cataract extraction - Family History Family History: Family History (Last Reviewed 02/22/18 @ 19:16 by Josesito Chicas MD) Other Family history in first degree relatives is unremarkable - Social History I have reviewed the patient's Social History: Yes - Tobacco History Second Hand Smoke Exposure: Yes Tobacco Use In Past 30 Days: Yes Smoking Status: Heavy tobacco smoker Tobacco Type: Cigarettes - Alcohol History How Often Do You Have a Drink Containing Alcohol: 4 or more times a week - Substance Use History Substance History: No History of Abuse - Travel History Recent Travel in the [place] Within the Last 8 Weeks: No Recent Travel Out of the Country Within the Last 8 Weeks: No - Immunization History Tetanus Immunization: >5 Years Hx Influenza Vaccine This Season: No Medications and Allergies Active Medications: Active Medications Hydrocodone Bitart/Acetaminophen ([place] 5/325) 1 tab PO Q6H PRN PRN Reason: pain Famotidine (Pepcid) 10 mg PO BID [facility] Last Admin: 02/22/18 08:15 Dose: Not Given Flumazenil ([place] Inj) 0.2 mg IV.PUSH Q1M PRN PRN Reason: OVERSEDATION Heparin Sodium (Porcine) (Heparin Inj) 5,000 units SQ Q8HR [facility] Last Admin: 02/22/18 15:06 Dose: 5,000 units Sodium Chloride (Ns Inj) 1,000 mls @ 84 mls/hr IV.SIG .[id number] [facility] Vancomycin HCl 1,250 mg/ (Sodium Chloride) 262.5 mls @ 250 mls/hr IV.SIG ONCE ONE Stop: 02/22/18 20:14 Lisinopril (Prinivil) 10 mg PO DAILY [facility] Last Admin: 02/22/18 08:15 Dose: Not Given Metoprolol Tartrate (Lopressor) 12.5 mg PO BID [facility] Last Admin: 02/22/18 08:15 Dose: Not Given Miscellaneous (Pill Splitter) 1 each OTHER UNSCH PRN PRN Reason: SEE LABEL COMMENTS Nicotine (Habitrol 21 Mg Patch.24 Hr) 1 patch T-DERMAL DAILY [facility] Last Admin: 02/22/18 08:15 Dose: Not Given Ondansetron HCl (Zofran Inj) 4 mg IV.PUSH Q6H PRN PRN Reason: NAUSEA OR VOMITING Patch Removal (Remove Old Patch) 1 each T-DERMAL HS [facility] Last Admin: 02/21/18 21:19 Dose: 1 each Pharmacy Profile Note (Vancomycin Consult Pharmacy) 1 each OTHER UNSCH PRN PRN Reason: Pharmacy to dose Sodium Chloride (Ns Flush) 2 ml IV.FLUSH PRN PRN PRN Reason: FLUSH AFTER USING IV ACCESS Last Admin: 02/18/18 00:00 Dose: 2 ml Thiamine HCl (Vitamin B1) 100 mg PO DAILY [facility] Last Admin: 02/22/18 08:15 Dose: Not Given Allergies Allergy/AdvReac Type Severity Reaction Status Date / Time No Known Allergies Allergy Verified 02/16/18 17:39 Physical Exam Vital signs: Vital Signs 02/21/18 20:00 02/22/18 00:00 02/22/18 04:00 Temperature 36.4 C 36.5 C 36.6 C Pulse Rate 94 H 100 H 105 H Respiratory Rate 16 20 13 Blood Pressure 123/72 117/94 H 104/76 Pulse Oximetry 98 98 100 02/22/18 07:39 02/22/18 08:00 02/22/18 10:25 Temperature 36.4 C L Pulse Rate 100 H 103 H 84 Respiratory Rate 12 16 Blood Pressure 112/72 91/63 L Pulse Oximetry 100 02/22/18 12:05 02/22/18 16:00 Temperature 36.7 C Pulse Rate 94 H 105 H Respiratory Rate 22 Blood Pressure 99/60 L 90/58 L Pulse Oximetry 97 Intake & Output 02/22/18 02/22/18 02/23/18 06:59 18:59 06:59 Intake Total 480 / 480 480 / 480 Output Total 1000 / 1000 Balance 480 / 480 -520 / -520 Weight 73.2 kg Intake: Oral 480 / 480 480 / 480 Output: Urine 1000 / 1000 Other: # Voids 2 2 # Incontinent Voids 5 # Urine Diapers 2 2 Date of Last Bowel Movement 02/19/18 02/19/18 Narrative: gen: middle-aged male, lying in bed, in distress and fatigued. heent: nc. at. perrl. mucous membranes dry. neck: no jvd. trachea midline. chest: room air. not using accessory muscles. equal chest rise. cv: tachycardic rate in the 110s, regular rhythm. sinus. blood pressure initially 40s/20s, while we were making interventions has improved to > 90 sbp. abd: soft, nontender, nondistended. no guarding or rebound. extr: no edema. poor skin turger. right upper arm with foul smelling blood pressure cuff with serous drainage. skin is red, indurated and foul smelling. no fluctuance noted. no skin tears. distal pulses 1+. neuro: RASS 0. slightly confused, but oriented x 2. moves all extremities and follows commands. Septic Shock Reassessment Septic shock perfusion: reassessment completed Assessment and Plan - Assessment and Plan Plan: Assessment: 67yM with etoh dependence and new acute hypotension. Certainly, his physical exam fits with dehydration as a cause for his hypotension, and he is responding to IVF. we will follow up labs and lactic acid. Given the odor from his blood pressure cuff, RUE cellulitis cannot be excluded at this time, and we will empirically cover him for healthcare associated infections until a further work-up can be completed. if his wbc is normal and he rapidly improves, would have a low threshold for de-escalation of antibiotic therapy. He is critically ill with life-threatening hypotension. Hypovolemic shock possible sepsis possible cellulitis Acute hypotension Plan: vanc and zosyn iv blood cultures, u/a cbc, cmp, lactic acid STAT 2L ivf NS mivf change out NIBP cuff and keep RUE clean and dry. no diarrhea to suggest c. diff. no cough or o2 requirement to suggest pneumonia. no dysuria, will send u/a to r/o UTI. if sepsis, cellulitis may be highest on the differential. may be non-infectious hypotension from dehydration. Critical care time: 40 minutes, exclusive of separately billable procedures.
[2018-02-22 19:26] LABS: Baso # (Auto) 0.2 th/mm3 (0.0-0.2); Baso % (Auto) 1.7 % (0.0-2.0); Eos # (Auto) 0.7 th/mm3 (0.0-0.4); Eos % (Auto) 7.5 % (0.0-4.0); Hematocrit 29.8 % (39.0-51.0); Hemoglobin 10.2 gm/dL (13.0-17.0); Lymph # (Auto) 0.9 th/mm3 (1.0-4.8); Mean Corpuscular HGB Conc 34.1 % (32.0-36.0); Mean Corpuscular Hemoglobin 35.3 pg (27.0-34.0); Mean Corpuscular Volume 103.6 fL (80.0-100.0); Mono # (Auto) 0.9 th/mm3 (0.0-0.9); Mono % (Auto) 9.4 % (0.0-8.0); Neut # (Auto) 6.4 th/mm3 (1.8-7.7); Neut % (Auto) 71.4 % (16.0-70.0); Platelet Count 467 th/mm3 (150-450); Red Blood Count 2.88 mil/mm3 (4.50-5.90); Red Cell Distribution Width 15.1 % (11.6-17.2); White Blood Count 9.1 th/mm3 (4.0-11.0)
[2018-02-22 19:33] LABS: Chloride 108 meq/L (98-107); Potassium 3.6 meq/L (3.5-5.1); Sodium 142 meq/L (136-145)
[2018-02-22 19:36] LABS: Calcium 8.9 mg/dL (8.5-10.1)
[2018-02-22 19:37] LABS: Albumin 1.8 g/dL (3.4-5.0); Anion Gap 12 meq/L (5-15); Blood Urea Nitrogen 35 mg/dL (7-18); Carbon Dioxide 21.7 meq/L (21.0-32.0); Glucose,Random 168 mg/dL (74-106)
[2018-02-22 19:40] LABS: Alanine Aminotransferase 31 U/L (12-78); Aspartate Aminotransferase 39 U/L (15-37); Glomerular Filtration Rate 41 mL/min (>89)
[2018-02-22 19:42] LABS: Total Protein 6.5 g/dL (6.4-8.2)
[2018-02-22 19:43] LABS: Alkaline Phosphatase 122 U/L (45-117)
[2018-02-22 20:00] LABS: Clarity,Urine Clear (Clear); Color,Urine Yellow (Yellw/Straw); Glucose,Urine (UA) 100 mg/dL (Negative); Leukocyte Esterase,Urine Negative (Negative); Nitrite,Urine Negative (Negative); PH,Urine 5.5 (5.0-8.5); Specific Gravity,Urine 1.025 (1.002-1.035)
[2018-02-22 20:03] LABS: Bilirubin,Urine Negative (Negative); Ictotest,Urine Negative (Negative)
[2018-02-22 20:05] LABS: RBC,Urine 0-3 /hpf (0-3); WBC,Urine 0-5 /hpf (0-5)
[2018-02-22 20:06] LABS: Amorphous Sediment,Urine Moderate /hpf; Squamous Epithelial Cell,Urine 0-5 /hpf (0-5)
[2018-02-22] MEDS: Piperacil/Tazo 4.5 GM Premix 4.5 GM/100 ML BAG IV.SIG SCH (20:35)
[2018-02-22] MEDS: Vancomycin Inj 1,500 MG in Sodium Chlor 0.9% Inj 500 ML IV.SIG SCH (21:14)
[2018-02-23] MEDS: Piperacil/Tazo 4.5 GM Premix 4.5 GM/100 ML BAG IV.SIG SCH ×4 (01:43→20:24)
[2018-02-23] MEDS: Heparin - SQ 10,000 UNITS/ML Vial SQ SCH ×3 (05:02→22:18)
[2018-02-23 05:04] LABS: Baso # (Auto) 0.3 th/mm3 (0.0-0.2); Baso % (Auto) 3.8 % (0.0-2.0); Eos # (Auto) 0.8 th/mm3 (0.0-0.4); Eos % (Auto) 8.8 % (0.0-4.0); Hemoglobin 9.3 gm/dL (13.0-17.0); Lymph # (Auto) 0.9 th/mm3 (1.0-4.8); Lymph % (Auto) 9.9 % (9.0-44.0); Mean Corpuscular HGB Conc 34.5 % (32.0-36.0); Mean Corpuscular Hemoglobin 35.6 pg (27.0-34.0); Mean Corpuscular Volume 103.1 fL (80.0-100.0); Mean Platelet Volume 8.2 fL (7.0-11.0); Mono # (Auto) 0.6 th/mm3 (0.0-0.9); Mono % (Auto) 6.8 % (0.0-8.0); Neut # (Auto) 6.3 th/mm3 (1.8-7.7); Neut % (Auto) 70.7 % (16.0-70.0); Platelet Count 424 th/mm3 (150-450); Red Blood Count 2.62 mil/mm3 (4.50-5.90); Red Cell Distribution Width 15.1 % (11.6-17.2); White Blood Count 8.9 th/mm3 (4.0-11.0)
[2018-02-23 05:19] LABS: Calcium 8.5 mg/dL (8.5-10.1); Potassium 4.4 meq/L (3.5-5.1)
--- NOTE | 2018-02-23 07:06 | P.PNCC ---
Subjective Subjective Remarks/Hospital Course: 67yM admitted on 02/16 for alcohol withdrawal and frequent falls. The patient had been stable on step down until yesterday, when he was noted to be profoundly hypotensive (BP 40s/20s) with acute kidney injury and mild lactic acidosis; he was subsequently transferred to the intensive care unit. He was started on broad-spectrum antibiotics and given 2L NS bolus with quick rebound of blood pressure. He reported no symptoms or complaints throughout this episode. 02/23- Stable BP overnight, afebrile. Objective Vital Signs / I&O: Vital Signs 02/22/18 07:39 02/22/18 08:00 02/22/18 10:25 Temperature 97.5 F L Pulse Rate 100 H 103 H 84 Respiratory Rate 12 16 Blood Pressure 112/72 91/63 L Pulse Oximetry 100 02/22/18 12:05 02/22/18 16:00 02/22/18 17:10 Temperature 99.2 F Pulse Rate 94 H 105 H 102 H Respiratory Rate 22 22 Blood Pressure 99/60 L 90/58 L 79/57 L Pulse Oximetry 97 02/22/18 17:12 02/22/18 18:21 02/22/18 18:25 Temperature Pulse Rate 100 H 102 H 98 H Respiratory Rate 31 H 15 23 Blood Pressure 90/58 L 72/52 L 69/54 L Pulse Oximetry 02/22/18 18:40 02/22/18 18:45 02/22/18 18:47 Temperature Pulse Rate 96 H 94 H 96 H Respiratory Rate 13 13 14 Blood Pressure 65/45 L 49/41 L 48/34 L Pulse Oximetry 02/22/18 18:51 02/22/18 18:54 02/22/18 19:00 Temperature Pulse Rate 102 H 98 H 98 H Respiratory Rate 16 26 H Blood Pressure 52/43 L 62/48 L 67/47 L Pulse Oximetry 98 02/22/18 19:05 02/22/18 19:10 02/22/18 19:25 Temperature Pulse Rate 98 H 98 H 100 H Respiratory Rate 22 14 14 Blood Pressure 85/58 L 93/49 L 100/87 Pulse Oximetry 99 99 02/22/18 19:40 02/22/18 19:55 02/22/18 20:00 Temperature Pulse Rate 100 H 104 H 102 H Respiratory Rate 14 13 14 Blood Pressure 84/60 L 101/69 96/64 L Pulse Oximetry 98 95 96 02/22/18 20:25 02/22/18 20:40 02/22/18 20:55 Temperature Pulse Rate 100 H 100 H 98 H Respiratory Rate 16 14 15 Blood Pressure 96/64 L 93/55 L 62/55 L Pulse Oximetry 98 02/22/18 20:57 02/22/18 21:00 02/22/18 23:00 Temperature Pulse Rate 100 H 100 H 110 H Respiratory Rate 17 26 H 37 H Blood Pressure 85/68 L 95/67 L 104/68 Pulse Oximetry 02/22/18 23:16 02/23/18 00:00 02/23/18 01:00 Temperature Pulse Rate 108 H 106 H 110 H Respiratory Rate 20 14 16 Blood Pressure 92/65 L 101/81 108/80 Pulse Oximetry 99 99 02/23/18 04:00 Temperature Pulse Rate 108 H Respiratory Rate 15 Blood Pressure 138/69 Pulse Oximetry 100 Intake & Output 02/22/18 02/23/18 02/23/18 18:59 06:59 18:59 Intake Total 480 / 480 3365 / 3365 Output Total 1000 / 1000 Balance -520 / -520 3365 / 3365 Weight 75.2 kg Intake: IV 2615 / 2615 LR 1000 mL Inj 1,000 ML @ Wide 1000 / 1000 Open IV.SIG BOLUS ONE Rx#: [id number] Zosyn 4.5 GM Premix 4.5 gm In 100 / 100 100 ml @ 200 mls/hr IV.SIG Q6H [facility] Rx#:[id number] NS Inj 1,000 ML @ 84 mls/hr IV. 1000 / 1000 SIG .[id number] [facility] Rx#:[id number] Vancomycin Inj 1,500 MG In NS 515 / 515 Inj 500 ML @ 250 mls/hr IV.SIG Q24H [facility] Rx#:[id number] Oral 480 / 480 750 / 750 Output: Urine 1000 / 1000 Other: # Voids 2 # Incontinent Voids 5 4 # Urine Diapers 2 Date of Last Bowel Movement 02/19/18 02/22/18 Result Diagrams: 02/23/18 04:27 02/23/18 04:27 Objective Remarks: GEN: Lying in bed, no acute distress HEENT: NCAT, PERRL NECK: Trachea midline CARDIO: Regular rate and rhythm PULM: Clear to auscultation bilaterally ABD/GI: Soft, non-distended, non-tender in all quadrants SKIN: RUE dry, warm but not erythematous, non-tender, not raised, no crepitus, no rash EXT/ MSK: Warm and well-perfused, no peripheral edema NEURO: Awake and alert x 3, no focal neuro deficits, no tremor or tongue fasciculations PSYCH: Appropriate affect, does not appear to be internally preoccupied Assessment and Plan - Assessment and Plan Plan: Assessment: 67yM with etoh dependence and new acute hypotension. Certainly, his physical exam fits with dehydration as a cause for his hypotension, and he is responding to IVF. we will follow up labs and lactic acid. Given the odor from his blood pressure cuff, RUE cellulitis cannot be excluded at this time, and we will empirically cover him for healthcare associated infections until a further work-up can be completed. if his wbc is normal and he rapidly improves, would have a low threshold for de-escalation of antibiotic therapy. Hypovolemic shock possible sepsis possible cellulitis Acute hypotension Plan: No longer requiring benzodiazepines for EtOH withdrawal, hospital day #8 Continue vanc and zosyn IV until preliminary blood cultures result UA negative Creat 1.2--> 1.7--> 1.5, likely due to hypovolemia, continue to trend Continue maintenance IVF Keep RUE clean and dry no diarrhea to suggest c. diff. no cough or o2 requirement to suggest pneumonia. no dysuria, will send u/a to r/o UTI. Hypotension likely secondary to hypovolemia, poor PO intake. No signs of cellulitis on exam this morning. Prophy: SC heparin, pepcid Overall: 67yM presenting with EtOH withdrawal, transferred to ICU for hypovolemic shock, now stable. If he remains hemodynamically stable, can transition back to [facility] service tomorrow AM. Counseling/ Coordination of Care: Total critical care time: 38 minutes. This includes examining the patient, gathering history from someone other than the patient (i.e., chart review), discussing the patient's care with nurse, ordering and interpreting radiology studies, ordering and interpreting laboratory studies, and documentation. All critical care time is separate and exclusive of procedures, teaching, and patient/ family updates. Code Status: Full
[2018-02-23] MEDS: Sod Chloride 0.9% Inj 1,000 ML IV.SIG SCH ×2 (10:50→13:20)
[2018-02-23] MEDS: Famotidine 20 MG Tablet PO SCH ×2 (10:52→20:25)
[2018-02-23] MEDS ORDERED: Sod Chloride 0.9% Inj 1,000 ML IV.SIG ONE (13:38)
--- NOTE | 2018-02-23 16:30 | CT ---
EXAM DATE: 02/23/2018 2:23 PM EDT AGE/SEX: 67 years / Male INDICATIONS: Hypotensive. Evaluate for dissection or coarctation. Significant blood pressure differe nce between arms. CLINICAL DATA: This is the patient's initial encounter. Patient reports that signs and symptoms have been present for 1 day and indicates a pain score of 0/10. MEDICAL/SURGICAL HISTORY: Hypertension. . Bilateral cataract surgery. RADIATION DOSE: 21.81 CTDI (mGy) COMPARISON: None. TECHNIQUE: Volumetric scanning was performed using a multi-row detector CT scanner during bolus infu brenda of 75 ml Omnipaque 350 (iohexol) nonionic water-soluble contrast as a single exam dose. The da ta was post processed with a variety of visualization algorithms including full volume maximum intens ity projection, multi-planar sliding thin slab reformation, curved planar reformation, and surface re ndering techniques. Using automated exposure control and adjustment of the mA and/or kV according to patient size, radiation dose was kept as low as reasonably achievable to obtain optimal diagnostic q uality images. DICOM format image data is available electronically for review and comparison. FINDINGS: THORACIC/ABDOMINAL AORTA: Diffuse pronounced calcified atherosclerotic plaque throughout the aorta an d its major branches. Note is made of a large plaque involving the right subclavian artery generating a high-grade stenosis or possible short segment occlusion. Carotid artery atherosclerotic calcificat ions are partially seen and are pronounced as well. No aneurysmal change. No dissection. There is mil d luminal narrowing involving the distal arch occurring just distal to the left subclavian artery chast[place] gin. Heavily calcified plaque is seen within this area as well. There is mild poststenotic dilatation reaching a maximum diameter of 3 cm. The remaining aorta is normal in caliber. Calcified plaque gene rates a 40% stenosis of the SMA origin. The celiac and NELLA are patent. 30-40% stenosis seen involving the origin of the right renal artery. Left renal artery origin is intact. HEART AND MEDIASTINUM: Heart is normal in size. No pericardial effusion. Pulmonary arteries are nixon l in caliber. No adenopathy or mass. LUNG PARENCHYMA: Dependent atelectasis. No infiltrates or effusions. OTHER STRUCTURES: Liver is diffusely low in attenuation. A calcified gallstone within an otherwise no rmal-appearing gallbladder. Remaining abdominal viscera are unremarkable. CONCLUSION: 1. Mild coarctation of the aorta as detailed above. There is mild poststenotic dilatation reaching a maximum diameter 3 cm. No dissection. 2. Pronounced carotid artery atherosclerotic calcifications partially seen. 3. Either high-grade stenosis or short segment occlusion involving the right subclavian artery. 4. Hepatic steatosis. Electronically signed by: Nicho Castañeda MD 02/23/2018 4:28 PM EDT
[2018-02-23] MEDS: Metoprolol Tartrate 25 MG Tablet PO SCH (18:22)
[2018-02-23] MEDS: Vancomycin Inj 1,500 MG in Sodium Chlor 0.9% Inj 500 ML IV.SIG SCH (22:18)
[2018-02-24] MEDS: Metoprolol Tartrate 25 MG Tablet PO SCH ×3 (00:16→21:05)
[2018-02-24] MEDS ORDERED: Labetalol HCl Inj 100 MG/20 ML Vial IV.PUSH SCH (01:30)
[2018-02-24] MEDS: Piperacil/Tazo 4.5 GM Premix 4.5 GM/100 ML BAG IV.SIG SCH ×2 (02:35→08:00)
[2018-02-24 04:56] LABS: Baso % (Auto) 0.2 % (0.0-2.0); Eos # (Auto) 0.8 th/mm3 (0.0-0.4); Eos % (Auto) 10.9 % (0.0-4.0); Hematocrit 25.9 % (39.0-51.0); Hemoglobin 8.9 gm/dL (13.0-17.0); Lymph # (Auto) 1.2 th/mm3 (1.0-4.8); Mean Corpuscular HGB Conc 34.3 % (32.0-36.0); Mean Corpuscular Hemoglobin 35.5 pg (27.0-34.0); Mean Corpuscular Volume 103.5 fL (80.0-100.0); Mean Platelet Volume 7.3 fL (7.0-11.0); Mono % (Auto) 13.1 % (0.0-8.0); Neut # (Auto) 4.4 th/mm3 (1.8-7.7); Neut % (Auto) 59.8 % (16.0-70.0); Platelet Count 389 th/mm3 (150-450); Red Cell Distribution Width 15.1 % (11.6-17.2); White Blood Count 7.4 th/mm3 (4.0-11.0)
[2018-02-24 05:13] LABS: Carbon Dioxide 23.5 meq/L (21.0-32.0); Potassium 3.5 meq/L (3.5-5.1)
[2018-02-24] MEDS: Sod Chloride 0.9% Inj 1,000 ML IV.SIG SCH ×3 (07:23→19:00)
[2018-02-24] MEDS: Heparin - SQ 10,000 UNITS/ML Vial SQ SCH ×3 (07:25→21:06)
[2018-02-24] MEDS: Lisinopril 10 MG Tablet PO SCH (09:29)
[2018-02-24] MEDS: Famotidine 20 MG Tablet PO SCH ×2 (09:29→21:04)
--- NOTE | 2018-02-24 11:33 | P.PNVS ---
Subjective Subjective/Hospital Course: Reviewed imaging studies w/ Dr. Guardado Pt with a RIGHT subclavian artery high grade stenosis/occulsion/mild coarctation of the aorta Discussed case w/ Dr. Alexander Will arrange out pt F/u with a surveillance WBI Objective Vital Signs / I&O: Vital Signs 02/23/18 12:03 02/23/18 13:13 02/23/18 13:17 Temperature Pulse Rate 100 H 96 H 96 H Respiratory Rate 17 15 13 Blood Pressure 155/64 H 78/57 L 148/74 H Pulse Oximetry 99 98 98 02/23/18 14:03 02/23/18 15:25 02/23/18 15:28 Temperature 98.6 F Pulse Rate 94 H 98 H Respiratory Rate 18 13 Blood Pressure 140/93 H 177/79 H 182/89 H Pulse Oximetry 99 99 02/23/18 15:35 02/23/18 15:36 02/23/18 16:00 Temperature 98.6 F Pulse Rate 98 H Respiratory Rate 12 Blood Pressure 126/79 127/75 123/87 Pulse Oximetry 99 02/23/18 17:03 02/23/18 18:00 02/23/18 20:00 Temperature 98.6 F Pulse Rate 98 H 104 H 95 H Respiratory Rate 19 22 18 Blood Pressure 163/80 H 167/78 H 169/72 H Pulse Oximetry 99 99 99 02/23/18 21:00 02/23/18 22:19 02/23/18 23:15 Temperature Pulse Rate 88 92 H 88 Respiratory Rate 13 16 17 Blood Pressure 160/90 H 162/79 H 155/65 H Pulse Oximetry 99 02/24/18 00:12 02/24/18 01:00 02/24/18 01:17 Temperature 97.7 F Pulse Rate 90 90 92 H Respiratory Rate 23 17 22 Blood Pressure 187/87 H 180/80 H 187/93 H Pulse Oximetry 95 02/24/18 02:00 02/24/18 03:01 02/24/18 04:00 Temperature 98 F Pulse Rate 88 92 H 90 Respiratory Rate 17 19 21 Blood Pressure 177/74 H 163/77 H 158/76 H Pulse Oximetry 98 02/24/18 04:12 02/24/18 05:21 02/24/18 06:00 Temperature Pulse Rate 92 H 94 H 90 Respiratory Rate 24 16 22 Blood Pressure 165/72 H Pulse Oximetry Intake & Output 02/23/18 02/24/18 02/24/18 18:59 06:59 18:59 Intake Total 1920 / 1920 1955 / 1955 100 / 100 Output Total 300 / 300 500 / 500 Balance 1620 / 1620 1455 / 1455 100 / 100 Weight 76.8 kg Intake: IV 1200 / 1200 1715 / 1715 100 / 100 Zosyn 4.5 GM Premix 4.5 gm In 200 / 200 200 / 200 100 / 100 100 ml @ 200 mls/hr IV.SIG Q6H [facility] Rx#:[id number] NS Inj 1,000 ML @ 84 mls/hr IV. 1000 / 1000 1000 / 1000 SIG .[id number] [facility] Rx#:[id number] Vancomycin Inj 1,500 MG In NS 515 / 515 Inj 500 ML @ 250 mls/hr IV.SIG Q24H [facility] Rx#:[id number] Oral 720 / 720 240 / 240 Output: Urine 300 / 300 500 / 500 Other: # Voids 3 # Incontinent Voids 2 2 Date of Last Bowel Movement 02/19/18 # Bowel Movements 0 0 Laboratory Results - last 24 hr 02/24/18 02/24/18 04:27 04:27 CBC w Diff Auto diff final WBC 7.4 RBC 2.50 L Hgb 8.9 L Hct 25.9 L MCV 103.5 H MCH 35.5 H MCHC 34.3 RDW 15.1 Plt Count 389 MPV 7.3 Neut % (Auto) 59.8 Lymph % (Auto) 16.0 [place] % (Auto) 13.1 H Eos % (Auto) 10.9 H Baso % (Auto) 0.2 Neut # (Auto) 4.4 Lymph # (Auto) 1.2 [place] # (Auto) 1.0 H Eos # (Auto) 0.8 H Baso # (Auto) 0.0 WBC Differential . Differential Comment . Sodium 144 Potassium 3.5 D Chloride 109 H Carbon Dioxide 23.5 Anion Gap 12 BUN 28 H Creatinine 1.80 H Estimated GFR 38 L Random Glucose 95 Calcium 8.0 L Magnesium 1.0 L Microbiology 02/22/18 19:15 Aerobic Blood Culture - Preliminary Blood - Peripheral Staphylococcus aureus Anaerobic Blood Culture - Preliminary Staphylococcus aureus 02/22/18 19:10 Aerobic Blood Culture - Preliminary Blood - Peripheral Staphylococcus aureus Anaerobic Blood Culture - Preliminary Staphylococcus aureus Impressions Thoracic Aorta CT 02/23/18 00:00 CONCLUSION: 1. Mild coarctation of the aorta as detailed above. There is mild poststenotic dilatation reaching a maximum diameter 3 cm. No dissection. 2. Pronounced carotid artery atherosclerotic calcifications partially seen. 3. Either high-grade stenosis or short segment occlusion involving the right subclavian artery. 4. Hepatic steatosis. Assessment and Plan - Plan Arranged out pt F/U with a WBI
[2018-02-24] MEDS ORDERED: Magnesium Sulfate Inj 2 GM in Sodium Chlor 0.9% Inj 96 ML IV.SIG ONE (12:45)
--- NOTE | 2018-02-24 13:06 | P.PN ---
Subjective Interval history: 67-year-old male who is seen and examined today for follow-up on profound weakness, alcohol abuse, right subclavian artery stenosis/occlusion, aortic coarctation. Patient resting in chair comfortably. Patient denies any new complaints. Blood pressure mildly elevated, patient remains afebrile. Physical Exam Vital signs: Vital Signs 02/23/18 13:13 02/23/18 13:17 02/23/18 14:03 Temperature Pulse Rate 96 H 96 H 94 H Respiratory Rate 15 13 18 Blood Pressure 78/57 L 148/74 H 140/93 H Pulse Oximetry 98 98 99 02/23/18 15:25 02/23/18 15:28 02/23/18 15:35 Temperature 98.6 F Pulse Rate 98 H Respiratory Rate 13 Blood Pressure 177/79 H 182/89 H 126/79 Pulse Oximetry 99 02/23/18 15:36 02/23/18 16:00 02/23/18 17:03 Temperature 98.6 F Pulse Rate 98 H 98 H Respiratory Rate 12 19 Blood Pressure 127/75 123/87 163/80 H Pulse Oximetry 99 99 02/23/18 18:00 02/23/18 20:00 02/23/18 21:00 Temperature 98.6 F Pulse Rate 104 H 95 H 88 Respiratory Rate 22 18 13 Blood Pressure 167/78 H 169/72 H 160/90 H Pulse Oximetry 99 99 99 02/23/18 22:19 02/23/18 23:15 02/24/18 00:12 Temperature 97.7 F Pulse Rate 92 H 88 90 Respiratory Rate 16 17 23 Blood Pressure 162/79 H 155/65 H 187/87 H Pulse Oximetry 95 02/24/18 01:00 02/24/18 01:17 02/24/18 02:00 Temperature Pulse Rate 90 92 H 88 Respiratory Rate 17 22 17 Blood Pressure 180/80 H 187/93 H 177/74 H Pulse Oximetry 02/24/18 03:01 02/24/18 04:00 02/24/18 04:12 Temperature 98 F Pulse Rate 92 H 90 92 H Respiratory Rate 19 21 24 Blood Pressure 163/77 H 158/76 H Pulse Oximetry 98 02/24/18 05:21 02/24/18 06:00 Temperature Pulse Rate 94 H 90 Respiratory Rate 16 22 Blood Pressure 165/72 H Pulse Oximetry Intake & Output 02/23/18 02/24/18 02/24/18 18:59 06:59 18:59 Intake Total 1920 / 1920 1955 / 1955 100 / 100 Output Total 300 / 300 500 / 500 Balance 1620 / 1620 1455 / 1455 100 / 100 Weight 76.8 kg Intake: IV 1200 / 1200 1715 / 1715 100 / 100 Zosyn 4.5 GM Premix 4.5 gm In 200 / 200 200 / 200 100 / 100 100 ml @ 200 mls/hr IV.SIG Q6H MARK Rx#:[id number] NS Inj 1,000 ML @ 84 mls/hr IV. 1000 / 1000 1000 / 1000 SIG .[id number] MARK Rx#:[id number] Vancomycin Inj 1,500 MG In NS 515 / 515 Inj 500 ML @ 250 mls/hr IV.SIG Q24H MARK Rx#:[id number] Oral 720 / 720 240 / 240 Output: Urine 300 / 300 500 / 500 Other: # Voids 3 # Incontinent Voids 2 2 Date of Last Bowel Movement 02/19/18 # Bowel Movements 0 0 Narrative: GENERAL: Well-developed, well-nourished, in no acute distress. alert and orientated HEENT: Head is normocephalic without any lesions or masses noted. Facial features are symmetric. Eyes: Extraocular muscles are intact. Conjunctivae were clear. NECK: Supple without any masses. Trachea midline no deviation. No JVD, CARDIAC: Regular rhythm, regular rate. S1/S2 are heard. No murmurs gallops or rubs. LUNGS: Clear to auscultation bilaterally. No wheeze, rhonchi or rales. No use of accessory muscles on inspiration or expiration. ABDOMEN: Soft, nontender. Nondistended. Bowel sounds heard in all 4 quadrants. No organomegaly or masses. Negative rebound, negative guarding EXTREMITIES: No edema, pulses are equal bilaterally. No cyanosis or clubbing NEUROLOGY: Mood and affect appear appropriate. Cranial nerves II through XII grossly intact. Moving all extremities, speech is clear. Patient with obvious upper extremity tremors Results - Labs CBC & Chem 7: 02/24/18 04:27 02/24/18 04:27 Laboratory Results - last 24 hr 02/24/18 02/24/18 04:27 04:27 CBC w Diff Auto diff final WBC 7.4 RBC 2.50 L Hgb 8.9 L Hct 25.9 L MCV 103.5 H MCH 35.5 H MCHC 34.3 RDW 15.1 Plt Count 389 MPV 7.3 Neut % (Auto) 59.8 Lymph % (Auto) 16.0 [place] % (Auto) 13.1 H Eos % (Auto) 10.9 H Baso % (Auto) 0.2 Neut # (Auto) 4.4 Lymph # (Auto) 1.2 [place] # (Auto) 1.0 H Eos # (Auto) 0.8 H Baso # (Auto) 0.0 WBC Differential . Differential Comment . Sodium 144 Potassium 3.5 D Chloride 109 H Carbon Dioxide 23.5 Anion Gap 12 BUN 28 H Creatinine 1.80 H Estimated GFR 38 L Random Glucose 95 Calcium 8.0 L Magnesium 1.0 L Microbiology 02/22/18 19:15 Blood - Peripheral Aerobic Blood Culture - Preliminary Staphylococcus aureus 02/22/18 19:15 Blood - Peripheral Anaerobic Blood Culture - Preliminary Staphylococcus aureus 02/22/18 19:10 Blood - Peripheral Aerobic Blood Culture - Preliminary Staphylococcus aureus 02/22/18 19:10 Blood - Peripheral Anaerobic Blood Culture - Preliminary Staphylococcus aureus - Imaging Impressions Thoracic Aorta CT 02/23/18 00:00 CONCLUSION: 1. Mild coarctation of the aorta as detailed above. There is mild poststenotic dilatation reaching a maximum diameter 3 cm. No dissection. 2. Pronounced carotid artery atherosclerotic calcifications partially seen. 3. Either high-grade stenosis or short segment occlusion involving the right subclavian artery. 4. Hepatic steatosis. Assessment and Plan - Assessment (1) Alcohol withdrawal Code(s): F10.239 - Alcohol dependence with withdrawal, unspecified Status: Acute (2) Falls frequently Code(s): R29.6 - Repeated falls Status: Acute - Plan Bacteremia with MSSA -Unknown etiology at this time, chest x-ray is unremarkable, CBC is normal, urinalysis was clear, patient does have excoriations/right upper extremity cellulitis could be possible source, however patient also has coarctation of the aorta, possible obstruction of the subclavian artery. Further radiologist need to be evaluated -Blood cultures positive / with MSSA -Patient is currently on vancomycin and Zosyn, will discontinue Zosyn -We will ascertain follow-up blood culture -We will obtain echocardiogram to evaluate for any endocarditis or valvular abnormalities, may need PRIYANKA if source cannot be found -Consult infectious disease for further recommendations Septic shock, resolved -Patient was followed by critical care team, they have currently signed off and transferred to medical service -Septic shock likely secondary to the bacteremia, however source for bacteremia still undetermined -Continue antibiotics as above Alcohol withdrawal and delirium tremens, Alcohol encephalopathy, resolved -Patient presented with multiple fall at home currently unable to ambulate -Head CT reviewed and normal. No acute abnormalities. -Encouraged alcohol cessation, patient does not express interest in quitting. -Seizure precautions. -Continue thiamine and folic acid -Patient no longer requiring any medications for alcohol withdrawal Profound weakness with recurrent falls -Secondary to the above -Left knee x-ray reviewed and showing left knee large joint effusion suspect secondary to falls. Will continue to monitor. No need for aspiration per IR. Improved. -Pain medication as needed per pain scale. -Physical therapy following the patient, they have not gotten him out of bed for evaluation due to alcohol withdrawal Chronic kidney disease stage III -Continue IV fluid -Continue monitor renal functions -Avoid nephrotoxins. Hypertension -Likely worsened from alcohol withdrawal. -Metoprolol 12.5 mg twice daily, increase to 25 mg twice daily -Continue lisinopril 10 mg twice daily Tobacco abuse: -Encouraged cessation. -Nicotine patch. Urticaria -Possible fleas from home. -Benadryl as needed for itching. -Eucerin cream ordered as needed. -Encouraged self hygiene and bathing. DVT prophylaxis: -Sequential compression devices -Subcutaneous heparin (1) Alcohol withdrawal Qualifiers: Complication of substance-induced condition: uncomplicated Qualified Code(s) : F10.230 - Alcohol dependence with withdrawal, uncomplicated
--- NOTE | 2018-02-24 15:57 | ECHRPT ---
Indication: Sepsis Possible Endocarditis CONCLUSIONS Normal left ventricular size. Mild concentric left ventricular hypertrophy. The left ventricular systolic function is normal with an estimated ejection fraction in the range of 55-60%. Trace mitral valve regurgitation. There is trace tricuspid valve regurgitation. The estimated pulmonary arterial pressure is 44 mmHg. No vegetations seen BP: / HR: Rhythm: MEASUREMENTS (Male / Female) Normal Values Technical Quality:Fair 2D ECHO LV Diastolic Diameter PLAX 4.9 cm 4.2 - 5.9 / 3.9 - 5.3 cm LV Systolic Diameter PLAX 3.3 cm IVS Diastolic Thickness 1.2 cm 0.6 - 1.0 / 0.6 - 0.9 cm LVPW Diastolic Thickness 1.2 cm 0.6 - 1.0 / 0.6 - 0.9 cm LV Relative Wall Thickness 0.5 RV Internal Dim ED PLAX 2.9 cm LVOT Diameter 1.8 cm Aortic Root Diameter 2.8 cm LA Systolic Diameter LX 3.5 cm 3.0 - 4.0 / 2.7 - 3.8 cm DOPPLER AV Peak Velocity 141.0 cm/s AV Peak Gradient 8.0 mmHg LVOT Peak Velocity 116.0 cm/s LVOT Peak Gradient 5.4 mmHg AV Area Cont Eq pk 2.1 cm Mitral E Point Velocity 108.0 cm/s Mitral A Point Velocity 114.0 cm/s Mitral E to A Ratio 0.9 LV E' Lateral Velocity 7.7 cm/s Mitral E to LV E' Lateral Ratio 14.0 LV E' Septal Velocity 6.2 cm/s Mitral E to LV E' Septal Ratio 17.3 TR Peak Velocity 291.0 cm/s TR Peak Gradient 33.9 mmHg Right Atrial Pressure 10.0 mmHg Pulmonary Artery Systolic Pressu 43.9 mmHg Right Ventricular Systolic Press 43.9 mmHg PV Peak Velocity 105.0 cm/s PV Peak Gradient 4.4 mmHg FINDINGS LEFT VENTRICLE Normal left ventricular size. Mild concentric left ventricular hypertrophy. The left ventricular systolic function is normal with an estimated ejection fraction in the range of 55-60%. RIGHT VENTRICLE Normal right ventricular size and systolic function. LEFT ATRIUM The left atrial size is normal. RIGHT ATRIUM The right atrial size is normal. ATRIAL SEPTUM Normal atrial septal thickness without atrial level shunting by limited color doppler interrogation. AORTA The aortic root and proximal ascending aorta are normal in size on limited imaging. MITRAL VALVE Trace mitral valve regurgitation. AORTIC VALVE Trileaflet aortic valve. TRICUSPID VALVE There is trace tricuspid valve regurgitation. The estimated pulmonary arterial pressure is 44 mmHg. PULMONARY VALVE No pulmonary valve regurgitation or stenosis. VESSELS The inferior vena cava is normal in size. PERICARDIUM No pericardial effusion. Emiliano Barboza MD (Electronically Signed) Final Date:24 February 2018 15:55
--- NOTE | 2018-02-24 18:07 | P.CON ---
History of Present Illness Service: INFECTIOUS DISEASE Consult date: 02/24/18 Requesting Physician: Kit De La Rosa Reason for Consult: BACTEREMIA / RASH Primary Care Provider: No Primary Care Physician Family Provider: No Primary Care Physician Chief Complaint: Multiple falls at home, knee pain, report of seizures History of Present Illness: 67 YR OLD RETIRED MAN ADMITTED TO THE HOSPITAL WITH WEAKNESS AND MULTIPLE FALLS. PT APPARENTLY HAS SOME ALCOHOL ABUSE. HE IS IN ICU AND MILDLY CONFUSED. HE DOES NOT RECALL FALLING AT HOME. HE STATES HE FEELS WELL NOW. BLOOD CULTURES ON ADMISSION WERE ALL POSITIVE FOR MSSA. HE HAD AN ECHO WHICH SHOWED EF OF 55% AND NO VEGETATIONS. HE HAS DENTURES. HE DOES SMOKE CIGARETTES. HE HAS NO NVD. HE HAD A GENERAL MACULAR RASH OVER HIS CHEST AND LEGS WHICH THE NURSE STATES IS BETTER. HE STATES HE DOES NOT HAVE PETS BUT HAS QUITE A FEW ROOM MATES. ID CONSULTED TO ASSIST WITH TREATMENT. Review of Systems Constitutional: Reports fatigue Ears, Nose, Mouth, and Throat: Denies headache(s) Cardiovascular: Denies generalized swelling, Denies leg pain with activity, Denies leg swelling, Denies radiating jaw, neck or arm pain Respiratory: Denies shortness of breath Gastrointestinal: Denies abdominal pain Genitourinary: Denies blood in urine Musculoskeletal: Denies back pain Neurologic: Denies headache(s) Psychiatric: Reports confusion Endocrine: Denies cold intolerance Hematologic/Lymphatic: Denies easy bleeding Allergic/Immunologic: Denies GI upset with certain foods PMFSH - History History Provided By: Patient, Medical Record - Medical History Medical History: Medical History (Last Reviewed 02/22/18 @ 19:16 by Josesito Chicas MD) Hypertension - Surgical History Surgical History: Surgical History (Last Reviewed 02/22/18 @ 19:16 by Josesito Chicas MD) H/O bilateral cataract extraction - Family History Family History: Family History (Last Reviewed 02/22/18 @ 19:16 by Josesito Chicas MD) Other Family history in first degree relatives is unremarkable - Tobacco History Second Hand Smoke Exposure: Yes Tobacco Use In Past 30 Days: Yes Smoking Status: Heavy tobacco smoker Tobacco Type: Cigarettes - Alcohol History How Often Do You Have a Drink Containing Alcohol: 4 or more times a week - Substance Use History Substance History: No History of Abuse - Travel History Recent Travel in the [facility] Within the Last 8 Weeks: No Recent Travel Out of the Country Within the Last 8 Weeks: No - Immunization History Tetanus Immunization: >5 Years Hx Influenza Vaccine This Season: No Medications and Allergies Active Medications: Active Medications Hydrocodone Bitart/Acetaminophen ([place] 5/325) 1 tab PO Q6H PRN PRN Reason: pain Artificial Tears (Eucerin Cream) 1 applicatio TOPICAL BID [facility] Diphenhydramine HCl (Benadryl) 25 mg PO Q6H PRN PRN Reason: ITCHING Famotidine (Pepcid) 10 mg PO BID [facility] Last Admin: 02/24/18 09:29 Dose: 10 mg Flumazenil (Romazecon Inj) 0.2 mg IV.PUSH Q1M PRN PRN Reason: OVERSEDATION Heparin Sodium (Porcine) (Heparin Inj) 5,000 units SQ Q8HR [facility] Last Admin: 02/24/18 13:52 Dose: 5,000 units Sodium Chloride (Ns Inj) 1,000 mls @ 84 mls/hr IV.SIG .[id number] [facility] Last Admin: 02/24/18 07:25 Dose: 84 mls/hr Vancomycin HCl 1,500 mg/ (Sodium Chloride) 515 mls @ 250 mls/hr IV.SIG Q24H [facility] Last Infusion: 02/24/18 00:30 Dose: Infused Lisinopril (Prinivil) 10 mg PO DAILY [facility] Last Admin: 02/24/18 09:29 Dose: 10 mg Metoprolol Tartrate (Lopressor) 25 mg PO BID [facility] Miscellaneous (Pill Splitter) 1 each OTHER UNSCH PRN PRN Reason: SEE LABEL COMMENTS Miscellaneous Information ([facility] Ordered Lab Info) 1 each OTHER ONCE ONE Stop: 02/25/18 20:46 Nicotine (Habitrol 21 Mg Patch.24 Hr) 1 patch T-DERMAL DAILY [facility] Last Admin: 02/24/18 09:29 Dose: 1 patch Ondansetron HCl (Zofran Inj) 4 mg IV.PUSH Q6H PRN PRN Reason: NAUSEA OR VOMITING Patch Removal (Remove Old Patch) 1 each T-DERMAL HS [facility] Last Admin: 02/23/18 20:27 Dose: 1 each Pharmacy Profile Note (Vancomycin Consult Pharmacy) 1 each OTHER UNSCH PRN PRN Reason: Pharmacy to dose Sodium Chloride (Ns Flush) 2 ml IV.FLUSH PRN PRN PRN Reason: FLUSH AFTER USING IV ACCESS Last Admin: 02/18/18 00:00 Dose: 2 ml Thiamine HCl (Vitamin B1) 100 mg PO DAILY [facility] Last Admin: 02/24/18 09:29 Dose: 100 mg Allergies Allergy/AdvReac Type Severity Reaction Status Date / Time No Known Allergies Allergy Verified 02/16/18 17:39 Physical Exam Vital signs: Vital Signs 02/23/18 18:00 02/23/18 20:00 02/23/18 21:00 Temperature 98.6 F Pulse Rate 104 H 95 H 88 Respiratory Rate 22 18 13 Blood Pressure 167/78 H 169/72 H 160/90 H Pulse Oximetry 99 99 99 02/23/18 22:19 02/23/18 23:15 02/24/18 00:12 Temperature 97.7 F Pulse Rate 92 H 88 90 Respiratory Rate 16 17 23 Blood Pressure 162/79 H 155/65 H 187/87 H Pulse Oximetry 95 02/24/18 01:00 02/24/18 01:17 02/24/18 02:00 Temperature Pulse Rate 90 92 H 88 Respiratory Rate 17 22 17 Blood Pressure 180/80 H 187/93 H 177/74 H Pulse Oximetry 02/24/18 03:01 02/24/18 04:00 02/24/18 04:12 Temperature 98 F Pulse Rate 92 H 90 92 H Respiratory Rate 19 21 24 Blood Pressure 163/77 H 158/76 H Pulse Oximetry 98 02/24/18 05:21 02/24/18 06:00 02/24/18 08:00 Temperature 97.8 F Pulse Rate 94 H 90 92 H Respiratory Rate 16 22 16 Blood Pressure 165/72 H 142/72 H Pulse Oximetry 93 L 02/24/18 10:00 02/24/18 12:00 02/24/18 13:00 Temperature Pulse Rate 94 H 74 86 Respiratory Rate 19 26 H 41 H Blood Pressure 131/54 L 132/64 Pulse Oximetry 02/24/18 14:00 Temperature Pulse Rate 76 Respiratory Rate 15 Blood Pressure 133/88 Pulse Oximetry Intake & Output 02/23/18 02/24/18 02/24/18 18:59 06:59 18:59 Intake Total 1920 / 1920 1955 / 1955 200 / 200 Output Total 300 / 300 500 / 500 Balance 1620 / 1620 1455 / 1455 200 / 200 Weight 76.8 kg Intake: IV 1200 / 1200 1715 / 1715 200 / 200 Magnesium Sulfate Inj 2 GM In 100 / 100 NS Inj 96 ML @ 50 mls/hr IV.SIG ONCE ONE Rx#:[id number] Zosyn 4.5 GM Premix 4.5 gm In 200 / 200 200 / 200 100 / 100 100 ml @ 200 mls/hr IV.SIG Q6H MARK Rx#:[id number] NS Inj 1,000 ML @ 84 mls/hr IV. 1000 / 1000 1000 / 1000 SIG .[id number] MARK Rx#:[id number] Vancomycin Inj 1,500 MG In NS 515 / 515 Inj 500 ML @ 250 mls/hr IV.SIG Q24H MARK Rx#:[id number] Oral 720 / 720 240 / 240 Output: Urine 300 / 300 500 / 500 Other: # Voids 3 # Incontinent Voids 2 2 Date of Last Bowel Movement 02/19/18 02/24/18 # Bowel Movements 0 0 - Constitutional no acute distress, disheveled - Routine HEENT Exam Head: Present: normocephalic, atraumatic Eye: Present: EOMI, PERRL ENT: Present: mucous membranes moist - Routine Neck Exam Present: supple. Absent: JVD - Routine Respiratory Exam Present: decreased breath sounds. Absent: CTA bilaterally - Routine Cardiovascular Exam Present: S1, S2 - Routine Abdominal Exam Present: soft, normoactive bowel sounds. Absent: tenderness, distended, guarding, firm, rigid, surgical scars - Routine Extremities Exam Present: clubbing, pulses intact, normal capillary refill. Absent: cyanosis, edema - Routine Skin Exam Present: dry, rash (SOME OLD SUPERFICIAL SKIN ABRAISON IN HEALING STAGES), cracked (BILATERAL FEET) - Routine Neurological Exam Present: alert. Absent: oriented X3 (OX2) - Routine Psychiatric Exam Present: normal affect (HE IS COOPERATIVE BUT HE IS A LITTLE CONFUSED AND A POOR HISTORIAN) Assessment and Plan - Assessment (1) Bacteremia Code(s): R78.81 - Bacteremia Status: Acute Plan: CONTINUE VANCOMYCIN ADD ANCEF REPEAT BC HAVE BEEN ORDERED PT BACTEREMIA LIKELY SECONDARY TO SKIN WOUNDS WILL FOLLOW REPEAT CULTRUES MAY NEED PRIYANKA IF REPEAT CULTURES POSITIVE RASH - HEALING HARD TO DISCERN IF SCABIES HOWEVER GIVEN HIS LIVING CONDITIONS WILL ORDER ELIMITE X 1 DOSE TONIGHT FU (2) Bacteremia due to Staphylococcus aureus Code(s): R78.81 - Bacteremia Status: Acute (3) Falls frequently Code(s): R29.6 - Repeated falls Status: Acute
[2018-02-24] MEDS: Vancomycin Inj 1,500 MG in Sodium Chlor 0.9% Inj 500 ML IV.SIG SCH (22:47)
[2018-02-25] MEDS: Heparin - SQ 10,000 UNITS/ML Vial SQ SCH ×2 (06:30→13:29)
[2018-02-25 06:40] LABS: Baso % (Auto) 0.2 % (0.0-2.0); Eos # (Auto) 0.8 th/mm3 (0.0-0.4); Eos % (Auto) 10.5 % (0.0-4.0); Hematocrit 27.6 % (39.0-51.0); Lymph # (Auto) 1.3 th/mm3 (1.0-4.8); Mean Corpuscular HGB Conc 32.7 % (32.0-36.0); Mean Corpuscular Hemoglobin 34.3 pg (27.0-34.0); Mean Platelet Volume 7.8 fL (7.0-11.0); Mono # (Auto) 1.1 th/mm3 (0.0-0.9); Mono % (Auto) 14.2 % (0.0-8.0); Neut # (Auto) 4.6 th/mm3 (1.8-7.7); Neut % (Auto) 58.1 % (16.0-70.0); Platelet Count 388 th/mm3 (150-450); Red Blood Count 2.63 mil/mm3 (4.50-5.90); Red Cell Distribution Width 14.8 % (11.6-17.2); White Blood Count 7.8 th/mm3 (4.0-11.0)
[2018-02-25 06:58] LABS: Potassium 3.4 meq/L (3.5-5.1)
[2018-02-25 07:01] LABS: Carbon Dioxide 23.4 meq/L (21.0-32.0); Magnesium 1.2 mg/dL (1.5-2.5)
[2018-02-25] MEDS ORDERED: Magnesium Oxide 400 MG Tablet PO ONE (07:11)
--- NOTE | 2018-02-25 08:13 | P.PNID ---
Subjective Remarks: No fevers No shortness of breath C/o some knee pain- bilateral No backpain Antibiotics: IV Vancomycin and Cefazolin Past Medical History: Alcohol withdrawal Allergies/Adverse Reactions: Allergies No Known Allergies Allergy (Verified 02/16/18 17:39) Objective Vital Signs 02/24/18 10:00 02/24/18 12:00 02/24/18 13:00 Temperature Pulse Rate 94 H 74 86 Respiratory Rate 19 26 H 41 H Blood Pressure 131/54 L 132/64 Pulse Oximetry 02/24/18 14:00 02/24/18 16:00 02/24/18 20:00 Temperature 97.1 F L Pulse Rate 76 82 94 H Respiratory Rate 15 19 18 Blood Pressure 133/88 183/74 H 181/85 H Pulse Oximetry 98 02/25/18 00:00 Temperature 97.4 F L Pulse Rate 78 Respiratory Rate 18 Blood Pressure 164/87 H Pulse Oximetry 100 Intake & Output 02/24/18 02/25/18 02/25/18 18:59 06:59 18:59 Intake Total 920 / 920 2095 / 2095 Output Total 500 / 500 1050 / 1050 Balance 420 / 420 1045 / 1045 Weight 76.8 kg Intake: IV 200 / 200 1615 / 1615 Magnesium Sulfate Inj 2 GM In 100 / 100 NS Inj 96 ML @ 50 mls/hr IV.SIG ONCE ONE Rx#:[id number] Zosyn 4.5 GM Premix 4.5 gm In 100 / 100 100 ml @ 200 mls/hr IV.SIG Q6H MARK Rx#:[id number] NS Inj 1,000 ML @ 84 mls/hr IV. 1000 / 1000 SIG .[id number] MARK Rx#:[id number] Vancomycin Inj 1,500 MG In NS 515 / 515 Inj 500 ML @ 250 mls/hr IV.SIG Q24H MARK Rx#:[id number] Ancef Inj 1,000 MG In NS Inj 100 / 100 100 ML @ 200 mls/hr IV.SIG Q12H MARK Rx#:[id number] Oral 720 / 720 480 / 480 Output: Urine 500 / 500 1050 / 1050 Other: # Urine Diapers 4 Date of Last Bowel Movement 02/24/18 02/24/18 # Bowel Movements 3 02/24/18 14:55 Blood - Peripheral Aerobic Blood Culture - Pending 02/24/18 14:55 Blood - Peripheral Anaerobic Blood Culture - Pending 02/22/18 19:15 Blood - Peripheral Aerobic Blood Culture - Preliminary Staphylococcus aureus 02/22/18 19:15 Blood - Peripheral Anaerobic Blood Culture - Preliminary Staphylococcus aureus 02/22/18 19:10 Blood - Peripheral Aerobic Blood Culture - Preliminary Staphylococcus aureus 02/22/18 19:10 Blood - Peripheral Anaerobic Blood Culture - Preliminary Staphylococcus aureus Lab - Hematology Results 02/24/18 02/25/18 04:27 05:35 CBC w Diff Auto diff final Auto diff final WBC 7.4 7.8 RBC 2.50 L 2.63 L Hgb 8.9 L 9.0 L Hct 25.9 L 27.6 L MCV 103.5 H 105.0 H MCH 35.5 H 34.3 H MCHC 34.3 32.7 RDW 15.1 14.8 Plt Count 389 388 MPV 7.3 7.8 Neut % (Auto) 59.8 58.1 Lymph % (Auto) 16.0 17.0 [place] % (Auto) 13.1 H 14.2 H Eos % (Auto) 10.9 H 10.5 H Baso % (Auto) 0.2 0.2 Neut # (Auto) 4.4 4.6 Lymph # (Auto) 1.2 1.3 [place] # (Auto) 1.0 H 1.1 H Eos # (Auto) 0.8 H 0.8 H Baso # (Auto) 0.0 0.0 WBC Differential . . Differential Comment . . Lab - Chemistry Results 02/24/18 02/25/18 04:27 05:35 Sodium 144 143 Potassium 3.5 D 3.4 L Chloride 109 H 110 H Carbon Dioxide 23.5 23.4 Anion Gap 12 10 BUN 28 H 22 H Creatinine 1.80 H 1.50 H Estimated GFR 38 L 47 L Random Glucose 95 86 Calcium 8.0 L 8.0 L Magnesium 1.0 L 1.2 L Imaging: ITS Impressions Chest X-Ray 02/16/18 18:04 CONCLUSION: No evidence of acute cardiopulmonary disease. Head CT 02/16/18 18:04 CONCLUSION: 1. No acute intracranial abnormality. 2. Atrophy and chronic white matter changes. 3. Mild ventriculomegaly similar to before. . Knee X-Ray 02/16/18 18:07 CONCLUSION: No bony abnormality demonstrated. Nonspecific joint effusion. Peripheral artery disease. Thoracic Aorta CT 02/23/18 00:00 CONCLUSION: 1. Mild coarctation of the aorta as detailed above. There is mild poststenotic dilatation reaching a maximum diameter 3 cm. No dissection. 2. Pronounced carotid artery atherosclerotic calcifications partially seen. 3. Either high-grade stenosis or short segment occlusion involving the right subclavian artery. 4. Hepatic steatosis. Physical Exam: Alert, Oriented x 3 Pallor No icterus Chest : Clear Heart S1S2 normal- Systolic murmur Abdomen: Soft NT Lower extremities- No swelling Slight effusion left knee Assessment and Plan (1) Alcohol withdrawal Status: Acute Code(s): F10.239 - Alcohol dependence with withdrawal, unspecified (2) Bacteremia due to Staphylococcus aureus Status: Acute Code(s): R78.81 - Bacteremia - Plan Patient with high grade bacteremia- 08/20 Staph aureus- source uncertain Echo negative Source of bacteremia uncertain and in view of high grade bacteremia will need PRIYANKA Continue IV Vancomycin and Cefazolin pending susceptibilities Re check Blood culture to make sure he is clearing bacteremia (1) Alcohol withdrawal Qualifiers: Complication of substance-induced condition: uncomplicated Qualified Code(s) : F10.230 - Alcohol dependence with withdrawal, uncomplicated
[2018-02-25] MEDS: Famotidine 20 MG Tablet PO SCH (08:57)
[2018-02-25] MEDS: Metoprolol Tartrate 25 MG Tablet PO SCH (08:58)
[2018-02-25] MEDS: Lisinopril 10 MG Tablet PO SCH (08:59)
--- NOTE | 2018-02-25 10:15 | P.PN ---
Subjective Interval history: 67-year-old male who is seen and examined today for follow-up on bacteremia, altered mental status, alcohol withdrawal, sepsis. Patient is doing well. Denies any new complaints. Patient is eating well. Patient remains afebrile Physical Exam Vital signs: Vital Signs 02/24/18 12:00 02/24/18 13:00 02/24/18 14:00 Temperature Pulse Rate 74 86 76 Respiratory Rate 26 H 41 H 15 Blood Pressure 132/64 133/88 Pulse Oximetry 02/24/18 16:00 02/24/18 20:00 02/25/18 00:00 Temperature 97.1 F L 97.4 F L Pulse Rate 82 94 H 78 Respiratory Rate 19 18 18 Blood Pressure 183/74 H 181/85 H 164/87 H Pulse Oximetry 98 100 02/25/18 08:00 Temperature 96 F L Pulse Rate 95 H Respiratory Rate 20 Blood Pressure 134/70 Pulse Oximetry 100 Intake & Output 02/24/18 02/25/18 02/25/18 18:59 06:59 18:59 Intake Total 920 / 920 2095 / 2095 Output Total 500 / 500 1050 / 1050 Balance 420 / 420 1045 / 1045 Weight 76.8 kg Intake: IV 200 / 200 1615 / 1615 Magnesium Sulfate Inj 2 GM In 100 / 100 NS Inj 96 ML @ 50 mls/hr IV.SIG ONCE ONE Rx#:[id number] Zosyn 4.5 GM Premix 4.5 gm In 100 / 100 100 ml @ 200 mls/hr IV.SIG Q6H MARK Rx#:[id number] NS Inj 1,000 ML @ 84 mls/hr IV. 1000 / 1000 SIG .[id number] MARK Rx#:[id number] Vancomycin Inj 1,500 MG In NS 515 / 515 Inj 500 ML @ 250 mls/hr IV.SIG Q24H MARK Rx#:[id number] Ancef Inj 1,000 MG In NS Inj 100 / 100 100 ML @ 200 mls/hr IV.SIG Q12H MARK Rx#:[id number] Oral 720 / 720 480 / 480 Output: Urine 500 / 500 1050 / 1050 Other: # Urine Diapers 4 Date of Last Bowel Movement 02/24/18 02/24/18 # Bowel Movements 3 Narrative: GENERAL: Well-developed, well-nourished, in no acute distress. alert and orientated HEENT: Head is normocephalic without any lesions or masses noted. Facial features are symmetric. Eyes: Extraocular muscles are intact. Conjunctivae were clear. NECK: Supple without any masses. Trachea midline no deviation. No JVD, CARDIAC: Regular rhythm, regular rate. S1/S2 are heard. 2/6 ejection murmur, no gallops or rubs. LUNGS: Clear to auscultation bilaterally. No wheeze, rhonchi or rales. No use of accessory muscles on inspiration or expiration. ABDOMEN: Soft, nontender. Nondistended. Bowel sounds heard in all 4 quadrants. No organomegaly or masses. Negative rebound, negative guarding EXTREMITIES: No edema, pulses are equal bilaterally. No cyanosis or clubbing NEUROLOGY: Mood and affect appear appropriate. Cranial nerves II through XII grossly intact. Moving all extremities, speech is clear. Results - Labs CBC & Chem 7: 02/25/18 05:35 02/25/18 05:35 Laboratory Results - last 24 hr 02/25/18 02/25/18 05:35 05:35 CBC w Diff Auto diff final WBC 7.8 RBC 2.63 L Hgb 9.0 L Hct 27.6 L MCV 105.0 H MCH 34.3 H MCHC 32.7 RDW 14.8 Plt Count 388 MPV 7.8 Neut % (Auto) 58.1 Lymph % (Auto) 17.0 [place] % (Auto) 14.2 H Eos % (Auto) 10.5 H Baso % (Auto) 0.2 Neut # (Auto) 4.6 Lymph # (Auto) 1.3 [place] # (Auto) 1.1 H Eos # (Auto) 0.8 H Baso # (Auto) 0.0 WBC Differential . Differential Comment . Sodium 143 Potassium 3.4 L Chloride 110 H Carbon Dioxide 23.4 Anion Gap 10 BUN 22 H Creatinine 1.50 H Estimated GFR 47 L Random Glucose 86 Calcium 8.0 L Magnesium 1.2 L Microbiology 02/22/18 19:15 Blood - Peripheral Aerobic Blood Culture - Preliminary Staphylococcus aureus 02/22/18 19:15 Blood - Peripheral Anaerobic Blood Culture - Preliminary Staphylococcus aureus 02/22/18 19:10 Blood - Peripheral Aerobic Blood Culture - Preliminary Staphylococcus aureus 02/22/18 19:10 Blood - Peripheral Anaerobic Blood Culture - Preliminary Staphylococcus aureus - Procedures ECHOCARDIOGRAM CONCLUSIONS Normal left ventricular size. Mild concentric left ventricular hypertrophy. The left ventricular systolic function is normal with an estimated ejection fraction in the range of 55-60%. Trace mitral valve regurgitation. There is trace tricuspid valve regurgitation. The estimated pulmonary arterial pressure is 44 mmHg. Assessment and Plan - Assessment (1) Alcohol withdrawal Code(s): F10.239 - Alcohol dependence with withdrawal, unspecified Status: Acute (2) Falls frequently Code(s): R29.6 - Repeated falls Status: Acute - Plan High-grade bacteremia with MSSA -Unknown etiology at this time, chest x-ray is unremarkable, CBC is normal, urinalysis was clear, patient does have excoriations/right upper extremity cellulitis could be possible source, however patient also has coarctation of the aorta, possible obstruction of the subclavian artery. Further radiologist need to be evaluated -Blood cultures positive 4/4 with MSSA -Patient is currently on vancomycin and Ancef -Continue to follow-up blood culture -Echocardiogram does not indicate any acute abnormalities. However in light of normal echocardiogram, murmur and high-grade bacteremia patient will require PRIYANKA -Infectious disease is following the patient -Cardiology consulted for PRIYANKA Septic shock, resolved -Patient was followed by critical care team, they have currently signed off and transferred to medical service -Septic shock likely secondary to the bacteremia, however source for bacteremia still undetermined -Continue antibiotics as above Alcohol withdrawal and delirium tremens, Alcohol encephalopathy, resolved -Patient presented with multiple fall at home currently unable to ambulate -Head CT reviewed and normal. No acute abnormalities. -Encouraged alcohol cessation, patient does not express interest in quitting. -Seizure precautions. -Continue thiamine and folic acid -Patient no longer requiring any medications for alcohol withdrawal Profound weakness with recurrent falls -Secondary to the above -Left knee x-ray reviewed and showing left knee large joint effusion suspect secondary to falls. Will continue to monitor. No need for aspiration per IR. Improved. -Pain medication as needed per pain scale. -Physical therapy following the patient, Chronic kidney disease stage III -Continue IV fluid -Continue monitor renal functions -Avoid nephrotoxins. Hypertension -Seems to be improving with increase in blood pressure medication -Metoprolol 25 mg twice daily -Continue lisinopril 10 mg twice daily Tobacco abuse: -Encouraged cessation. -Nicotine patch. Urticaria -Possible fleas from home and/or scabies. -Benadryl as needed for itching. -Eucerin cream ordered as needed. -Encouraged self hygiene and bathing. -Status post Elimite treatment DVT prophylaxis: -Sequential compression devices -Subcutaneous heparin Discharge Planning: Discharge planning once blood cultures are negative for at least 2 days, after evaluation for high-grade bacteremia, once cleared by infectious disease. Likely will need discharge to shelter facility secondary to profound weakness. (1) Alcohol withdrawal Qualifiers: Complication of substance-induced condition: uncomplicated Qualified Code(s) : F10.230 - Alcohol dependence with withdrawal, uncomplicated
[2018-02-25] MEDS: Sod Chloride 0.9% Inj 1,000 ML IV.SIG SCH ×2 (10:29→17:51)
[2018-02-25] MEDS: Magnesium Oxide 400 MG Tablet PO SCH (10:29)
[2018-02-25] MEDS ORDERED: Lidocaine PF 1% Inj 5 ML Vial ONE (15:14)
[2018-02-25] MEDS ORDERED: Lidocaine PF 1% Inj 5 ML Syringe OTHER ONE (16:15)
--- NOTE | 2018-02-25 18:34 | ECHRPT ---
Indication: POSS SEPSIS, ENDOCARDITIS CONCLUSIONS The left ventricular systolic function is normal with an estimated ejection fraction in the range of 55-60%. Trace mitral valve regurgitation. BP: / HR: Rhythm: Technical Quality: Medications Complications Proc. Components Anesthesia at the bedside for sedation FINDINGS LEFT VENTRICLE The left ventricular systolic function is normal with an estimated ejection fraction in the range of 55-60%. No regional wall motion abnormalities are present. RIGHT VENTRICLE The right ventricular size is normal. The right ventricular systoilc function is normal. LEFT ATRIUM The left atrial size is normal. RIGHT ATRIUM The right atrial size is normal. ATRIAL APPENDAGES Normal left atrial appendage size with no evidence of thrombus formation. 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 No atrial level shunt is demonstrated by color flow Doppler interrogation. AORTA The aortic root and proximal ascending aorta are normal in size on limited imaging. MITRAL VALVE Structurally normal mitral valve. Trace mitral valve regurgitation. No mitral valve stenosis. AORTIC VALVE Trileaflet aortic valve. No aortic valve stenosis or regurgitation. TRICUSPID VALVE Structurally normal tricuspid valve. No tricuspid valve stenosis or regurgitation. VESSELS The pulmonary valve is not well visualized. No pulmonary valve regurgitation. Wallace Rodriguez DO (Electronically Signed) Final Date:25 February 2018 18:33
[2018-02-25] MEDS ORDERED: Pharmacy Ordered Lab Info OTHER ONE (20:45)
[2018-02-25] MEDS ORDERED: Haloperidol Inj 5 MG/ML Ampul IV.PUSH PRN (21:55)
[2018-02-25] MEDS ORDERED: LORazepam 1 MG Tablet PO PRN (21:55)
--- NOTE | 2018-02-25 23:59 | MB ---
cc: Wallace Rodriguez DO DATE: 02/25/2018 REASON FOR CONSULTATION: Bacteremia, consideration of PRIYANKA. HISTORY OF PRESENT ILLNESS: Florentino Mittal is a 67-year-old male who presented to [facility] due to multiple falls at home and a possible seizure. Apparently, the patient has a long history of alcohol abuse. He states that he has been falling at home for the past couple of months and recently had fallen out of his truck and hurt his right knee and that is why he presented to the emergency room. He drinks up to a 12 pack per day of beer as well as smokes 2 packs per day of cigarettes since he was a teenager. Apparently, he also had a seizure around 1 month ago. During his workup, he was found to have 4/4 bottles positive for Staph aureus. An echocardiogram was done, which showed no endocarditis, but I was asked to see him due to high risk for possible endocarditis with his bacteremia. PAST MEDICAL HISTORY: 1. Hypertension. 2. Alcohol abuse. 3. Tobacco abuse. 4. Seizures. PAST SURGICAL HISTORY: Bilateral cataract extraction. ALLERGIES: NO KNOWN DRUG ALLERGIES. MEDICATIONS: [place] 5/325 every 6 hours as needed. FAMILY HISTORY: Denies premature coronary artery disease or sudden cardiac within the family. SOCIAL HISTORY: The patient smokes 2 packs of cigarettes per day. He drinks 12 beers per day and states that he usually has a seizure if he stops drinking or does not drink enough. Denies drug abuse. REVIEW OF SYSTEMS: Fourteen systems were reviewed including osteopathic. Pertinent positives and negatives above, otherwise negative. PHYSICAL EXAMINATION: VITAL SIGNS: Temperature 97.2, heart rate 80, blood pressure 128/59, respirations 16, pulse oximetry 100% on room air. GENERAL: The patient appears older than stated age. No acute distress. Alert, awake and oriented x3. HEENT: Extraocular muscles intact. Mucous membranes moist. NECK: Supple. No JVD at 45 degrees. No carotid bruits heard bilaterally. Carotid upstroke is brisk in nature. HEART: Regular rate and rhythm. Positive first and second heart sounds with no known murmurs, gallops or rubs. LUNGS: Clear to auscultation bilaterally. No wheezes, rales or rhonchi. ABDOMEN: Soft, nontender, nondistended. No organomegaly noted. EXTREMITIES: Show no clubbing, cyanosis or edema. Femoral and distal pulses are intact bilaterally. NEUROLOGIC: No focal deficits. SKIN: Warm, dry and intact. OSTEOPATHIC: No kyphoscoliosis, scoliosis, lordosis or paraspinal tender points. LABORATORY DATA: Hemoglobin 9.0, hematocrit 27.6, platelets 388. Potassium 3.4, BUN 22, creatinine 1.5. Electrocardiogram (02/16/2018 at 1828): Sinus tachycardia, borderline left axis deviation, right bundle branch block. IMPRESSION: 1. Generalized weakness with multiple falls. 2. Bacteremia with Staphylococcus aureus. 3. Alcohol abuse. 4. Tobacco abuse. 5. Chronic kidney disease, stage III. 6. Hypertension. 7. History of seizure. RECOMMENDATIONS: 1. Mr. Mittal was found to have multiple blood cultures positive for Staphylococcus aureus and because of this, he was recommended consideration of PRIYANKA to evaluate for endocarditis. 2. I discussed this with him including risks, benefits and alternatives and he is in agreement with undergoing the procedure. 3. He will be kept n.p.o. This will be planned for later this afternoon. 4. I spoke to him for greater than 3 minutes about tobacco cessation. I also spoke to him about how alcohol is a cardio depressant. 5. Further recommendations will be made after transesophageal echocardiogram. Thank you for allowing me to see Florentino Mittal. If there are any questions, please do not hesitate to call. DO KAY Burnette/luz maria , 11:27 PM , 11:38 PM
[2018-02-26] MEDS: Magnesium Oxide 400 MG Tablet PO SCH ×3 (00:35→21:34)
[2018-02-26] MEDS: Heparin - SQ 10,000 UNITS/ML Vial SQ SCH ×4 (00:35→23:06)
[2018-02-26] MEDS: Metoprolol Tartrate 25 MG Tablet PO SCH ×3 (00:35→21:34)
[2018-02-26] MEDS: Famotidine 20 MG Tablet PO SCH ×3 (00:35→21:35)
[2018-02-26] MEDS: Vancomycin Inj 1,500 MG in Sodium Chlor 0.9% Inj 500 ML IV.SIG SCH (00:41)
[2018-02-26] MEDS ORDERED: Pharmacy Ordered Lab Info OTHER ONE (05:45)
[2018-02-26] MEDS ORDERED: Vancomycin Inj 1,500 MG in Sodium Chlor 0.9% Inj 500 ML IV.SIG SCH (06:00)
[2018-02-26] MEDS: Sod Chloride 0.9% Inj 1,000 ML IV.SIG SCH ×3 (07:19→18:33)
[2018-02-26] MEDS: Lisinopril 10 MG Tablet PO SCH (09:47)
--- NOTE | 2018-02-26 10:30 | P.PN ---
Subjective Interval history: Follow-up for MSSA bacteremia, altered mental status, alcohol withdrawal, sepsis. Patient seen and examined today. States he is doing okay. States he was restrained last night because he pulled out his IV. Patient states that it was beeping and he thought tyhe only way stop the beeping is to remove the IV. States he is still weak. Otherwise, denies pain and discomfort. Denies SOB/ dyspnea. Denies chest pain, palpitations, headaches. Denies fevers, chills, n/v /d. Denies dysuria. Asking for assistance to go to the bathroom. Physical Exam Vital signs: Vital Signs 02/25/18 12:00 02/25/18 19:10 02/25/18 20:00 Temperature 97.2 F L 97.4 F L 97.6 F Pulse Rate 80 78 84 Respiratory Rate 16 18 22 Blood Pressure 128/59 L 162/71 H 146/71 H Pulse Oximetry 100 96 100 02/26/18 00:00 02/26/18 04:00 02/26/18 07:00 Temperature 97.6 F 97.4 F L Pulse Rate 82 67 Respiratory Rate 20 18 12 Blood Pressure 169/69 H 188/86 H Pulse Oximetry 98 98 02/26/18 08:00 Temperature 97.6 F Pulse Rate 80 Respiratory Rate 18 Blood Pressure 127/79 Pulse Oximetry 97 Intake & Output 02/25/18 02/26/18 02/26/18 18:59 06:59 18:59 Intake Total 100 / 100 1000 / 1000 Output Total 260 / 260 650 / 650 Balance -160 / -160 350 / 350 Weight 76.7 kg Intake: IV 100 / 100 1000 / 1000 NS Inj 1,000 ML @ 84 mls/hr IV. 1000 / 1000 SIG .[id number] MARK Rx#:[id number] Ancef Inj 1,000 MG In NS Inj 100 / 100 100 ML @ 200 mls/hr IV.SIG Q12H MARK Rx#:[id number] Output: Urine 260 / 260 650 / 650 Other: Date of Last Bowel Movement 02/24/18 02/24/18 02/25/18 Narrative: GENERAL: This is a well-nourished, well-developed patient, in no apparent distress. SKIN: Warm and dry. Multiple wound throughout the body in different healing stages. Severe dry skin, thick. Left upper arm small open wound, draining scant serous fluid HEENT: Normocephalic. Pupils equal round and reactive. Nose without bleeding. Airway patent. NECK: Trachea midline. CARDIOVASCULAR: Regular rate and rhythm with murmurs. No gallops, or rubs. RESPIRATORY: Clear to auscultation. Breath sounds equal bilaterally. No wheezes , rales, or rhonchi. GASTROINTESTINAL: Abdomen soft, non-tender, nondistended. Bowel Sounds normoactive x4. MUSCULOSKELETAL: Extremities without clubbing, cyanosis, or edema. NEUROLOGICAL: Awake and alert. Oriented to person. No focal neuro deficit. Moves all extremities. Normal speech. Follows commands. Results - Labs CBC & Chem 7: 02/25/18 05:35 02/25/18 05:35 Microbiology 02/24/18 14:55 Blood - Peripheral Aerobic Blood Culture - Preliminary gram positive cocci 02/24/18 14:55 Blood - Peripheral Anaerobic Blood Culture - Preliminary No growth in 1 day 02/22/18 19:10 Blood - Peripheral Aerobic Blood Culture - Final Staphylococcus aureus 02/22/18 19:10 Blood - Peripheral Anaerobic Blood Culture - Final Staphylococcus aureus 02/22/18 19:15 Blood - Peripheral Aerobic Blood Culture - Final Staphylococcus aureus 02/22/18 19:15 Blood - Peripheral Anaerobic Blood Culture - Final Staphylococcus aureus - Procedures ECHOCARDIOGRAM CONCLUSIONS Normal left ventricular size. Mild concentric left ventricular hypertrophy. The left ventricular systolic function is normal with an estimated ejection fraction in the range of 55-60%. Trace mitral valve regurgitation. There is trace tricuspid valve regurgitation. The estimated pulmonary arterial pressure is 44 mmHg. Assessment and Plan - Assessment (1) Alcohol withdrawal Code(s): F10.239 - Alcohol dependence with withdrawal, unspecified Status: Acute (2) Falls frequently Code(s): R29.6 - Repeated falls Status: Acute - Plan 67-year-old male patient with a known medical history of alcohol abuse who presented to the ED with complaints of multiple falls at home, right knee pain, and reports of seizures at home initially admitted at [facility]. Sepsis, bacteremia high-grade with MSSA -Unknown etiology at this time, chest x-ray is unremarkable, CBC is normal, urinalysis was clear, patient does have excoriations/right upper extremity cellulitis could be possible source, however patient also has coarctation of the aorta, possible obstruction of the subclavian artery. Further radiologist need to be evaluated -Blood cultures positive 4/4 with MSSA -Patient is currently on vancomycin and Ancef -Continue to follow-up blood culture showing gram-positive pair clusters -Echocardiogram does not indicate any acute abnormalities. However in light of normal echocardiogram, murmur and high-grade bacteremia patient will require PRIYANKA -Infectious disease, Dr Polanco has been following the patient from [facility] -Cardiology consulted for PRIYANKA, Dr. Rodriguez did PRIYANKA -The left ventricular systolic function is normal with an estimated ejection fraction in the range of 55-60%. Trace mitral valve regurgitation. -Continue IV antibiotics for now. Alcohol withdrawal delirium tremens Multiple falls, chronic alcohol abuse Left knee pain -Head CT negative for abnormalities -Continue thiamine, multivitamin -Left knee x-ray showing left knee large joint effusion suspect secondary to falls Profound weakness with recurrent falls -Secondary to the above -Left knee x-ray reviewed and showing left knee large joint effusion suspect secondary to falls. Will continue to monitor. No need for aspiration per IR. Improved. -Pain medication as needed per pain scale. With bowel regimen -Physical therapy eval and treat Chronic kidney disease stage III -Continue IV fluid, continue IV line as he pulled out his IV lines yesterday. -Continue monitor renal functions -Avoid nephrotoxins. Hypertension -Metoprolol 25 mg twice daily -Continue lisinopril 10 mg twice daily -Monitor BP trend Tobacco abuse: -Encouraged cessation. -Nicotine patch. Urticaria -Possible fleas from home and/or scabies. -Benadryl as needed for itching. -Eucerin cream ordered as needed. -Encouraged self hygiene and bathing. -Status post Elimite treatment DVT prophylaxis SCDs, heparin Code Status: Full code Discussed Condition With: Patient, nurse Discharge Planning: Plan to DC SNF when clinically improved, cleared by infectious disease. Currently blood cultures continues to still be positive on IV antibiotics (1) Alcohol withdrawal Qualifiers: Complication of substance-induced condition: uncomplicated Qualified Code(s) : F10.230 - Alcohol dependence with withdrawal, uncomplicated
--- NOTE | 2018-02-26 14:17 | P.PNID ---
Subjective Remarks: Id Xcover for Dr.Reba Polanco 67 y/o M admitted with AMS, Right knee pain. H/o falls at home. Was in ICU initially. Seen by at then transferred to [facility] hospital for PRIYANKA. PRIYANKA ordered due to persistent bacteremia. PRIYANKA negative. Knee effusion could not be tapped appears to have improved now with reduced swelling. Rash improved. MSSA bacteremia persistent source likely skin breaks. Possible septic arthritis right knee on admission appears to be improving. s/p PRIYANKA today. No fevers No shortness of breath C/o some knee pain- bilateral No back pain Antibiotics: IV Vancomycin and Cefazolin Lines: Lines ok Past Medical History: Alcohol withdrawal Allergies/Adverse Reactions: Allergies No Known Allergies Allergy (Verified 02/16/18 17:39) Objective Vital Signs 02/25/18 19:10 02/25/18 20:00 02/26/18 00:00 Temperature 97.4 F L 97.6 F 97.6 F Pulse Rate 78 84 82 Respiratory Rate 18 22 20 Blood Pressure 162/71 H 146/71 H 169/69 H Pulse Oximetry 96 100 98 02/26/18 04:00 02/26/18 07:00 02/26/18 08:00 Temperature 97.4 F L 97.6 F Pulse Rate 67 80 Respiratory Rate 18 12 18 Blood Pressure 188/86 H 127/79 Pulse Oximetry 98 97 02/26/18 12:00 02/26/18 13:50 Temperature 97.6 F Pulse Rate 73 80 Respiratory Rate 18 Blood Pressure 116/60 Pulse Oximetry 97 Intake & Output 02/25/18 02/26/18 02/26/18 18:59 06:59 18:59 Intake Total 100 / 100 1000 / 1000 615 / 615 Output Total 260 / 260 650 / 650 Balance -160 / -160 350 / 350 615 / 615 Weight 76.7 kg Intake: IV 100 / 100 1000 / 1000 615 / 615 NS Inj 1,000 ML @ 84 mls/hr IV. 1000 / 1000 SIG .[id number] MARK Rx#:[id number] Ancef Inj 1,000 MG In NS Inj 100 / 100 100 / 100 100 ML @ 200 mls/hr IV.SIG Q12H MARK Rx#:[id number] Output: Urine 260 / 260 650 / 650 Other: Date of Last Bowel Movement 02/24/18 02/24/18 02/25/18 02/24/18 14:55 Blood - Peripheral Aerobic Blood Culture - Preliminary gram positive cocci 02/24/18 14:55 Blood - Peripheral Anaerobic Blood Culture - Preliminary No growth in 2 days 02/22/18 19:10 Blood - Peripheral Aerobic Blood Culture - Final Staphylococcus aureus 02/22/18 19:10 Blood - Peripheral Anaerobic Blood Culture - Final Staphylococcus aureus 02/22/18 19:15 Blood - Peripheral Aerobic Blood Culture - Final Staphylococcus aureus 02/22/18 19:15 Blood - Peripheral Anaerobic Blood Culture - Final Staphylococcus aureus Lab - Hematology Results 02/25/18 05:35 CBC w Diff Auto diff final WBC 7.8 RBC 2.63 L Hgb 9.0 L Hct 27.6 L MCV 105.0 H MCH 34.3 H MCHC 32.7 RDW 14.8 Plt Count 388 MPV 7.8 Neut % (Auto) 58.1 Lymph % (Auto) 17.0 [place] % (Auto) 14.2 H Eos % (Auto) 10.5 H Baso % (Auto) 0.2 Neut # (Auto) 4.6 Lymph # (Auto) 1.3 [place] # (Auto) 1.1 H Eos # (Auto) 0.8 H Baso # (Auto) 0.0 WBC Differential . Differential Comment . Lab - Chemistry Results 02/25/18 05:35 Sodium 143 Potassium 3.4 L Chloride 110 H Carbon Dioxide 23.4 Anion Gap 10 BUN 22 H Creatinine 1.50 H Estimated GFR 47 L Random Glucose 86 Calcium 8.0 L Magnesium 1.2 L Imaging: ITS Impressions Chest X-Ray 02/16/18 18:04 CONCLUSION: No evidence of acute cardiopulmonary disease. Head CT 02/16/18 18:04 CONCLUSION: 1. No acute intracranial abnormality. 2. Atrophy and chronic white matter changes. 3. Mild ventriculomegaly similar to before. . Knee X-Ray 02/16/18 18:07 CONCLUSION: No bony abnormality demonstrated. Nonspecific joint effusion. Peripheral artery disease. Thoracic Aorta CT 02/23/18 00:00 CONCLUSION: 1. Mild coarctation of the aorta as detailed above. There is mild poststenotic dilatation reaching a maximum diameter 3 cm. No dissection. 2. Pronounced carotid artery atherosclerotic calcifications partially seen. 3. Either high-grade stenosis or short segment occlusion involving the right subclavian artery. 4. Hepatic steatosis. Physical Exam: Alert, Oriented x 3 Gen confused at times. HEENT NAD Pallor No icterus Chest : Clear Heart S1S2 normal- Systolic murmur Abdomen: Soft NT Lower extremities- No swelling Right knee with no erythema, swelling noted Right ankle with deformity noted Psych cooperative. Skin with rash noted on LEs bilaterally. deferred. Assessment and Plan (1) Alcohol withdrawal Status: Acute Code(s): F10.239 - Alcohol dependence with withdrawal, unspecified (2) Bacteremia due to Staphylococcus aureus Status: Acute Code(s): R78.81 - Bacteremia - Plan MSSA bacteremia persistent probable endocarditis. PRIYANKA can be negative. Acute metabolic encephalopathy: likely sepsis and alcohol combined. Acute renal failure Recs Continue Ancef IV Dc Vanco IV Repeat blood cultures x 2. Follow cultures Follow clinical course. (1) Alcohol withdrawal Qualifiers: Complication of substance-induced condition: uncomplicated Qualified Code(s) : F10.230 - Alcohol dependence with withdrawal, uncomplicated
[2018-02-26] MEDS: ceFAZolin 2 GM Premix Inj 2 GM/100 ML BAG IV.SIG SCH ×2 (15:30→23:10)
--- NOTE | 2018-02-26 18:56 | P.PNCA ---
Subjective Interval history: Patient was seen earlier today, late entry note PRIYANKA negative for endocarditis Tolerated procedure well Medications and Allergies Active Medications: Active Medications Hydrocodone Bitart/Acetaminophen ([place] 5/325) 1 tab PO Q6H PRN PRN Reason: pain Artificial Tears (Eucerin Cream) 1 applicatio TOPICAL BID [facility] Last Admin: 02/26/18 09:47 Dose: 1 applicatio Clonidine HCl (Catapres) 0.1 mg PO Q6H PRN PRN Reason: SYS BP GREATER THAN 160 MMHG Diphenhydramine HCl (Benadryl) 25 mg PO Q6H PRN PRN Reason: ITCHING Last Admin: 02/26/18 15:30 Dose: 25 mg Famotidine (Pepcid) 10 mg PO BID [facility] Last Admin: 02/26/18 09:47 Dose: 10 mg Flumazenil (Romazecon Inj) 0.2 mg IV.PUSH Q1M PRN PRN Reason: OVERSEDATION Flumazenil (Romazecon Inj) 0.2 mg IV.PUSH Q1M PRN PRN Reason: OVERSEDATION Haloperidol Lactate (Haldol Inj) 1 mg IV.PUSH Q15M PRN PRN Reason: for severe agitation Heparin Sodium (Porcine) (Heparin Inj) 5,000 units SQ Q8HR [facility] Last Admin: 02/26/18 13:57 Dose: 5,000 units Sodium Chloride (Ns Inj) 1,000 mls @ 100 mls/hr IV.SIG .Q10H [facility] Stop: 02/26/18 22:00 Last Admin: 02/26/18 18:33 Dose: Not Given Cefazolin/Sodium Chloride (Ancef 2 Gm Premix Inj) 2 gm in 100 mls @ 200 mls/hr IV.SIG Q8H [facility] Last Infusion: 02/26/18 16:22 Dose: Infused Lisinopril (Prinivil) 10 mg PO DAILY [facility] Last Admin: 02/26/18 09:47 Dose: 10 mg Lorazepam (Ativan) 1 mg PO Q4H PRN PRN Reason: for CIWA 8-10 Lorazepam (Ativan) 2 mg PO Q2H PRN PRN Reason: for CIWA 11-14 Lorazepam (Ativan Inj) 2 mg IV.PUSH Q2H PRN PRN Reason: for CIWA 11-14 Lorazepam (Ativan Inj) 2 mg IV.PUSH Q1H PRN PRN Reason: for CIWA 15-20 Lorazepam (Ativan Inj) 1 mg IV.PUSH Q4H PRN PRN Reason: for CIWA 8-10 Lorazepam (Ativan Inj) 2 mg IV.PUSH Q15M PRN PRN Reason: for CIWA > 20 Magnesium Oxide (Mag-Ox) 400 mg PO BID [facility] Last Admin: 02/26/18 11:03 Dose: 400 mg Metoprolol Tartrate (Lopressor) 25 mg PO BID [facility] Last Admin: 02/26/18 09:47 Dose: 25 mg Miscellaneous (Pill Splitter) 1 each OTHER UNSCH PRN PRN Reason: SEE LABEL COMMENTS Nicotine (Habitrol 21 Mg Patch.24 Hr) 1 patch T-DERMAL DAILY [facility] Last Admin: 02/26/18 09:49 Dose: Not Given Ondansetron HCl (Zofran Inj) 4 mg IV.PUSH Q6H PRN PRN Reason: NAUSEA OR VOMITING Patch Removal (Remove Old Patch) 1 each T-DERMAL HS [facility] Last Admin: 02/26/18 00:36 Dose: 1 each Quetiapine Fumarate (Seroquel) 25 mg PO HS [facility] Sodium Chloride (Ns Flush) 2 ml IV.FLUSH PRN PRN PRN Reason: FLUSH AFTER USING IV ACCESS Last Admin: 02/18/18 00:00 Dose: 2 ml Thiamine HCl (Vitamin B1) 100 mg PO DAILY [facility] Last Admin: 02/26/18 09:47 Dose: 100 mg Allergies Allergy/AdvReac Type Severity Reaction Status Date / Time No Known Allergies Allergy Verified 02/16/18 17:39 Physical Exam Vital signs: Vital Signs 02/25/18 19:10 02/25/18 20:00 02/26/18 00:00 Temperature 97.4 F L 97.6 F 97.6 F Pulse Rate 78 84 82 Respiratory Rate 18 22 20 Blood Pressure 162/71 H 146/71 H 169/69 H Pulse Oximetry 96 100 98 02/26/18 04:00 02/26/18 07:00 02/26/18 08:00 Temperature 97.4 F L 97.6 F Pulse Rate 67 80 Respiratory Rate 18 12 18 Blood Pressure 188/86 H 127/79 Pulse Oximetry 98 97 02/26/18 12:00 02/26/18 13:50 02/26/18 16:00 Temperature 97.6 F 97.7 F Pulse Rate 73 80 88 Respiratory Rate 18 18 Blood Pressure 116/60 175/81 H Pulse Oximetry 97 97 02/26/18 16:53 Temperature Pulse Rate 88 Respiratory Rate Blood Pressure Pulse Oximetry Intake & Output 02/25/18 02/26/18 02/26/18 18:59 06:59 18:59 Intake Total 100 / 100 1000 / 1000 715 / 715 Output Total 260 / 260 650 / 650 400 / 400 Balance -160 / -160 350 / 350 315 / 315 Weight 76.7 kg Intake: IV 100 / 100 1000 / 1000 715 / 715 NS Inj 1,000 ML @ 84 mls/hr IV. 1000 / 1000 SIG .[id number] MARK Rx#:[id number] Ancef 2 GM Premix Inj 2 gm In 100 / 100 100 ml @ 200 mls/hr IV.SIG Q8H MARK Rx#:[id number] Ancef Inj 1,000 MG In NS Inj 100 / 100 100 / 100 100 ML @ 200 mls/hr IV.SIG Q12H MARK Rx#:[id number] Output: Urine 260 / 260 650 / 650 400 / 400 Other: Date of Last Bowel Movement 02/24/18 02/24/18 02/25/18 Narrative: GENERAL: This is a well-nourished, well-developed patient, in no apparent distress. SKIN: Warm and dry. Multiple wound throughout the body in different healing stages. Severe dry skin, thick. Left upper arm small open wound, draining scant serous fluid HEENT: Normocephalic. Pupils equal round and reactive. Nose without bleeding. Airway patent. NECK: Trachea midline. CARDIOVASCULAR: Regular rate and rhythm with murmurs. No gallops, or rubs. RESPIRATORY: Clear to auscultation. Breath sounds equal bilaterally. No wheezes , rales, or rhonchi. GASTROINTESTINAL: Abdomen soft, non-tender, nondistended. Bowel Sounds normoactive x4. MUSCULOSKELETAL: Extremities without clubbing, cyanosis, or edema. NEUROLOGICAL: Awake and alert. Oriented to person. No focal neuro deficit. Moves all extremities. Normal speech. Follows commands. Results 02/25/18 05:35 02/25/18 05:35 CBC 02/25/18 Range/Units 05:35 WBC 7.8 (4.0-11.0) th/mm3 RBC 2.63 L (4.50-5.90) mil/mm3 Hgb 9.0 L (13.0-17.0) gm/dL Hct 27.6 L (39.0-51.0) % Plt Count 388 (150-450) th/mm3 Neut # (Auto) 4.6 (1.8-7.7) th/mm3 Lymph # (Auto) 1.3 (1.0-4.8) th/mm3 Bailey # (Auto) 1.1 H (0.0-0.9) th/mm3 Eos # (Auto) 0.8 H (0.0-0.4) th/mm3 Baso # (Auto) 0.0 (0.0-0.2) th/mm3 Comprehensive Metabolic Panel 02/25/18 Range/Units 05:35 Sodium 143 (136-145) meq/L Potassium 3.4 L (3.5-5.1) meq/L Chloride 110 H (98-107) meq/L Carbon Dioxide 23.4 (21.0-32.0) meq/L BUN 22 H (7-18) mg/dL Creatinine 1.50 H (0.60-1.30) mg/dL Calcium 8.0 L (8.5-10.1) mg/dL Intake and Output 02/26/18 02/26/18 02/26/18 06:59 14:59 22:59 Intake Total 1000 / 1000 615 / 615 100 / 100 Output Total 650 / 650 100 / 100 300 / 300 Balance 350 / 350 515 / 515 -200 / -200 Intake: IV 1000 / 1000 615 / 615 100 / 100 NS Inj 1,000 ML @ 84 mls/hr IV. 1000 / 1000 SIG .[id number] MARK Rx#:[id number] Ancef 2 GM Premix Inj 2 gm In 100 / 100 100 ml @ 200 mls/hr IV.SIG Q8H MARK Rx#:[id number] Ancef Inj 1,000 MG In NS Inj 100 / 100 100 ML @ 200 mls/hr IV.SIG Q12H MARK Rx#:[id number] Output: Urine 650 / 650 100 / 100 300 / 300 Other: Date of Last Bowel Movement 02/25/18 Weight 76.7 kg Assessment and Plan - Assessment (1) ETOH abuse Code(s): F10.10 - Alcohol abuse, uncomplicated Status: Acute (2) Tobacco abuse Code(s): Z72.0 - Tobacco use Status: Acute (3) Falls frequently Code(s): R29.6 - Repeated falls Status: Acute (4) Bacteremia due to Staphylococcus aureus Code(s): R78.81 - Bacteremia Status: Acute - Plan 1) PRIYANKA negative for endocarditis Tolerated the procedure well 2) Bacteremia Per ID 3) ETOH abuse Cessation due to cardio-depressant 4) Tobacco cessation 5) Will see PRN, call with questions
[2018-02-26] MEDS: QUEtiapine 25 MG Tablet PO SCH (21:34)
[2018-02-27] MEDS: Heparin - SQ 10,000 UNITS/ML Vial SQ SCH ×3 (05:25→21:10)
[2018-02-27 08:17] LABS: Baso % (Auto) 0.5 % (0.0-2.0); Eos # (Auto) 0.7 th/mm3 (0.0-0.4); Hematocrit 29.7 % (39.0-51.0); Hemoglobin 9.8 gm/dL (13.0-17.0); Lymph # (Auto) 1.4 th/mm3 (1.0-4.8); Lymph % (Auto) 16.7 % (9.0-44.0); Mean Corpuscular HGB Conc 33.1 % (32.0-36.0); Mean Corpuscular Hemoglobin 35.1 pg (27.0-34.0); Mean Corpuscular Volume 106.2 fL (80.0-100.0); Mean Platelet Volume 7.7 fL (7.0-11.0); Mono % (Auto) 12.1 % (0.0-8.0); Neut # (Auto) 5.1 th/mm3 (1.8-7.7); Neut % (Auto) 61.7 % (16.0-70.0); Platelet Count 320 th/mm3 (150-450); Red Cell Distribution Width 15.5 % (11.6-17.2); White Blood Count 8.2 th/mm3 (4.0-11.0)
[2018-02-27 08:41] LABS: Anion Gap 9 meq/L (5-15); Aspartate Aminotransferase 32 U/L (15-37); Blood Urea Nitrogen 22 mg/dL (7-18); Carbon Dioxide 23.5 meq/L (21.0-32.0); Chloride 109 meq/L (98-107); Glomerular Filtration Rate 49 mL/min (>89); Glucose,Random 79 mg/dL (74-106); Potassium 3.9 meq/L (3.5-5.1); Sodium 141 meq/L (136-145)
[2018-02-27 08:42] LABS: Alanine Aminotransferase 17 U/L (12-78)
[2018-02-27 08:44] LABS: Alkaline Phosphatase 92 U/L (45-117); Total Protein 6.8 g/dL (6.4-8.2)
[2018-02-27] MEDS: Lisinopril 10 MG Tablet PO SCH (09:47)
[2018-02-27] MEDS: Metoprolol Tartrate 25 MG Tablet PO SCH ×2 (09:47→21:10)
[2018-02-27] MEDS: Famotidine 20 MG Tablet PO SCH ×2 (09:47→21:10)
[2018-02-27] MEDS: Magnesium Oxide 400 MG Tablet PO SCH ×2 (09:47→21:10)
[2018-02-27] MEDS: ceFAZolin 2 GM Premix Inj 2 GM/100 ML BAG IV.SIG SCH ×3 (10:33→23:04)
[2018-02-27] MEDS: Sodium Chloride 0.45 % Inj 1,000 ML IV.CONT SCH (11:32)
--- NOTE | 2018-02-27 11:55 | P.PN ---
Subjective Interval history: Follow-up for MSSA bacteremia, altered mental status, alcohol withdrawal, sepsis. Patient seen and examined today. States he is doing better. Slept well last night. As per nursing no acute issues overnight. Otherwise, denies pain and discomfort. Denies SOB/ dyspnea. Denies chest pain, palpitations, headaches. Denies fevers, chills, n/v/d. Denies dysuria. Physical Exam Vital signs: Vital Signs 02/26/18 12:00 02/26/18 13:50 02/26/18 16:00 Temperature 97.6 F 97.7 F Pulse Rate 73 80 88 Respiratory Rate 18 18 Blood Pressure 116/60 175/81 H Pulse Oximetry 97 97 02/26/18 16:53 02/26/18 20:00 02/27/18 00:00 Temperature 98.5 F 97.5 F L Pulse Rate 88 79 80 Respiratory Rate 18 18 Blood Pressure 138/64 160/78 H Pulse Oximetry 99 99 02/27/18 04:00 02/27/18 08:00 Temperature 98 F 97.4 F L Pulse Rate 90 85 Respiratory Rate 18 18 Blood Pressure 187/86 H 136/85 Pulse Oximetry 90 L 97 Intake & Output 02/26/18 02/27/18 02/27/18 18:59 06:59 18:59 Intake Total 715 / 715 1100 / 1100 Output Total 400 / 400 600 / 600 Balance 315 / 315 500 / 500 Weight 75.2 kg Intake: IV 715 / 715 1100 / 1100 NS Inj 1,000 ML @ 100 mls/hr IV 1000 / 1000 .SIG .Q10H MARK Rx#:[id number] Ancef 2 GM Premix Inj 2 gm In 100 / 100 100 / 100 100 ml @ 200 mls/hr IV.SIG Q8H MARK Rx#:[id number] Ancef Inj 1,000 MG In NS Inj 100 / 100 100 ML @ 200 mls/hr IV.SIG Q12H MARK Rx#:[id number] Output: Urine 400 / 400 600 / 600 Other: # Incontinent Voids 1 Date of Last Bowel Movement 02/25/18 02/24/18 Narrative: GENERAL: This is a well-nourished, well-developed patient, in no apparent distress. SKIN: Warm and dry. Multiple wound throughout the body in different healing stages. Severe dry skin, thick. Left upper arm small open wound, draining scant serous fluid HEENT: Normocephalic. Pupils equal round and reactive. Nose without bleeding. Airway patent. NECK: Trachea midline. CARDIOVASCULAR: Regular rate and rhythm with murmurs. No gallops, or rubs. RESPIRATORY: Clear to auscultation. Breath sounds equal bilaterally. No wheezes , rales, or rhonchi. GASTROINTESTINAL: Abdomen soft, non-tender, nondistended. Bowel Sounds normoactive x4. MUSCULOSKELETAL: Extremities without clubbing, cyanosis, or edema. NEUROLOGICAL: Awake and alert. No focal neuro deficit. Moves all extremities. Normal speech. Follows commands. Results - Labs CBC & Chem 7: 02/27/18 08:05 02/27/18 08:05 Laboratory Results - last 24 hr 02/26/18 02/27/18 02/27/18 10:59 08:05 08:05 WBC 8.2 RBC 2.80 L Hgb 9.8 L Hct 29.7 L MCV 106.2 H MCH 35.1 H MCHC 33.1 RDW 15.5 Plt Count 320 MPV 7.7 Neut % (Auto) 61.7 Lymph % (Auto) 16.7 Towns % (Auto) 12.1 H Eos % (Auto) 9.0 H Baso % (Auto) 0.5 Neut # (Auto) 5.1 Lymph # (Auto) 1.4 [place] # (Auto) 1.0 H Eos # (Auto) 0.7 H Baso # (Auto) 0.0 WBC Differential . Differential Comment Auto diff final Sodium 141 Potassium 3.9 Chloride 109 H Carbon Dioxide 23.5 Anion Gap 9 BUN 22 H Creatinine 1.45 H Estimated GFR 49 L Random Glucose 79 Calcium 9.0 Total Bilirubin 0.3 AST 32 ALT 17 Alkaline Phosphatase 92 Total Protein 6.8 Albumin 2.0 L Vancomycin Trough 22.6 H Microbiology 02/24/18 14:55 Blood - Peripheral Aerobic Blood Culture - Preliminary Staphylococcus aureus 02/24/18 14:55 Blood - Peripheral Anaerobic Blood Culture - Preliminary No growth in 3 days - Procedures ECHOCARDIOGRAM CONCLUSIONS Normal left ventricular size. Mild concentric left ventricular hypertrophy. The left ventricular systolic function is normal with an estimated ejection fraction in the range of 55-60%. Trace mitral valve regurgitation. There is trace tricuspid valve regurgitation. The estimated pulmonary arterial pressure is 44 mmHg. Assessment and Plan - Assessment (1) Alcohol withdrawal Code(s): F10.239 - Alcohol dependence with withdrawal, unspecified Status: Acute (2) Falls frequently Code(s): R29.6 - Repeated falls Status: Acute - Plan 67-year-old male patient with a known medical history of alcohol abuse who presented to the ED with complaints of multiple falls at home, right knee pain, and reports of seizures at home initially admitted at [facility]. Sepsis, bacteremia high-grade with MSSA -Unknown etiology at this time, chest x-ray is unremarkable, CBC is normal, urinalysis was clear, patient does have excoriations/right upper extremity cellulitis could be possible source, however patient also has coarctation of the aorta, possible obstruction of the subclavian artery. Further radiologist need to be evaluated -Blood cultures positive 4/4 with MSSA -Patient is currently on vancomycin and Ancef -Continue to follow-up blood culture showing gram-positive pair clusters -Echocardiogram does not indicate any acute abnormalities. However in light of normal echocardiogram, murmur and high-grade bacteremia patient will require PRIYANKA -Infectious disease, Dr Polanco has been following the patient from [place]. Dr. Ybarra took over the case. Adjusted dose of medication Ancef. -Cardiology consulted for PRIYANKA, Dr. Rodriguez did PRIYANKA -The left ventricular systolic function is normal with an estimated ejection fraction in the range of 55-60%. Trace mitral valve regurgitation. -Continue IV antibiotics for now. Alcohol withdrawal delirium tremens Multiple falls, chronic alcohol abuse Left knee pain -Head CT negative for abnormalities -Continue thiamine, multivitamin -Left knee x-ray showing left knee large joint effusion suspect secondary to falls -Doesn't appear to have any edema/ effusion on exam. Does not complain of pain Profound weakness with recurrent falls -Secondary to the above -Left knee x-ray reviewed and showing left knee large joint effusion suspect secondary to falls. Will continue to monitor. No need for aspiration per IR. Improved. -Pain medication as needed per pain scale. With bowel regimen -Physical therapy eval and treat Chronic kidney disease stage III, 3-1.5 -IV fluids low dose. -Continue monitor renal functions -Avoid nephrotoxins. -Recheck renal indicis Hypertension -Metoprolol 25 mg twice daily -Continue lisinopril 10 mg twice daily -Monitor BP trend Tobacco abuse: -Encouraged cessation. -Nicotine patch. Urticaria -? fleas from home and/or scabies. -Benadryl as needed for itching. -Eucerin cream ordered as needed. -Encouraged self hygiene and bathing. -Status post Elimite treatment -Does not appear to have fleas or scabies, patient appears to have eczema with multiple plaquing that has not been treated well. Severe dry skin. Continue with Eucerin. DVT prophylaxis SCDs, heparin Full code Discussed with patient, nurse Discharge Planning: Plan to DC SNF when clinically improved, cleared by infectious disease. Currently blood cultures continues to still be positive on IV antibiotics (1) Alcohol withdrawal Qualifiers: Complication of substance-induced condition: uncomplicated Qualified Code(s) : F10.230 - Alcohol dependence with withdrawal, uncomplicated
--- NOTE | 2018-02-27 13:32 | P.CONPAL ---
Consult Service: Palliative Care Requesting Physician: Prem Mi Reason for Consult: a. To assist with evaluation and management of symptoms including: generalized weakness, pain b. To assist medical decision maker(s) with: better understanding of current medical conditions; weighing benefits/burdens of medical treatment options; making medical treatment decisions. Primary Care Provider: No Primary Care Physician History of Present Illness History of Present Illness: Mr. Mittal is a 67-year-old male with a medical history of alcohol abuse and hypertension. Patient presented to the emergency room on 02/16/18 with complaints of multiple falls at home, pain to his right knee and reports of seizures at home. Patient reported in the emergency room that he drinks alcohol on a daily basis and that he usually has a seizure when his drinking or does not drink enough alcohol. He reported that his last seizure was in January,. ER course: * Vital signs: Temperature 98.1F, pulse 106, respiration rate 18, BP 142/72, pulse oximetry 100% * Chest x-ray revealed no evidence of acute cardiopulmonary disease * Laboratory workup revealed WBC 12.2, hemoglobin 10.2, hematocrit 30.5, platelet count 419, PT 10.0, INR 1.0, APTT 31.3, sodium 133, potassium 4.4, BUN/ creatinine 52/2.10, random glucose 88, troponin less than 0.02, total protein 7.9, albumin 2.2 * EKG revealed sinus tachycardia borderline left axis deviation right bundle branch block * Head CT revealed no intracranial hemorrhage or hematoma. Atrophy and chronic low attenuation in the periventricular white matter and mild ventriculomegaly * Left knee x-ray revealed peripheral artery disease with no bony abnormality or joint effusion. * Patient admitted for further evaluation and treatment. Physical therapy consulted on 02/17/18. On 02/22/18 patient became severely hypotensive with blood pressure in the 40s/20s, tachycardic with a heart rate of 110. Critical care management Dr. Chicas consulted on 02/22/18 to evaluate and manage patient with hypovolemic shock, patient was started on IV fluids which he positively responded to and was started on vancomycin and Zosyn and laboratory workup ordered to rule out urinary tract infection, or sepsis. Patient was noted to have a significant blood pressure discrepancy between bilateral upper extremities but asymptomatic. Thoracic/abdominal aorta CTA revealed mild coarctation of the aorta and mild poststenotic dilatation reaching a maximum diameter 3 cm. No dissection. Pronounced carotid artery atherosclerotic calcifications and either high-grade stenosis or short segment, occlusion involving the right subclavian artery and hepatic steatosis. Blood cultures collected on 02/22/18 positive for Staphylococcus aureus. Infectious disease Dr. Polanco consulted on 02/24/18 for evaluation and management of bacteremia/rash, recommended repeating blood cultures and treating patient with elimite x1 dose. Patient was transferred from [facility] to [facility] in [place]. Cardiology Dr. Rodriguez consulted on 02/25 for evaluation of a patient with bacteremia and consideration of PRIYANKA. Transesophageal echocardiogram on 02/25/18 revealed normal left ventricular systolic function and an estimated ejection fraction in the range of 55-60% with trace mitral valve regurgitation and was negative for endocarditis. Clinical course complicated with persistent bacteremia despite treatment with antibiotics and generalized weakness. Palliative care consulted to assist with symptom management and establishment of goals of medical treatment. Patient seen and examined in his room. Patient is sitting up in a recliner with no complaints of pain at this time. Patient states that when he is in pain it is usually his bilateral knees and his right foot. He does not take any pain medication at home. Patient states that he usually rests when his legs are bothering him. He is alert, oriented to self, place and situation. Patient was able to state that he has been told by physicians that he has infection in his blood. He also notes that he currently is receiving antibiotics for the infection. And his initial visit introduced palliative care and its role in managing symptoms as well as establishing goals of medical treatment. Obtained psychosocial, past medical history and events leading to this hospitalization. Patient does not remember exactly why he came to the hospital though he mentions that he has been feeling very weak and he has been told that he has had multiple falls at home. Patient is unsure whether he does have seizures. Patient has never completed advanced directives. He states that in the event that he is incapacitated he would like his brother Daxa Ramos who lives in [place] to serve as his healthcare surrogate and his other brother who resides in [place], [place] Omar Gilbertams to serve as his alternate healthcare surrogate. Patient was not able to provide their contact information at this time. Addressed CODE STATUS, discussed CPR benefits, limitations and complications. Patient elected no code Do Not Resuscitate and Don not intubate. Patient states that at he has seen relatives on life support before and he has made a decision that he does not want to be ever put on life support or resuscitated in the event of a cardiac arrest. He continues to state that he would not want to live in a vegetative state. Telephone conversation with patient`s daughter Arabella Ames who confirmed all the information provided by patient inclusive of his psychosocial, and family history. Updated her on patient`s current medical status. Patient`s daughter does not have contact information of patient`s brothers who have been designated by patient as his HCS(s). Patient`s daughter states that patient has always said in the past that he does not want to be resuscitated if found in cardiac arrest or be intubated when in respiratory distress. She is supportive of her father in making a decision to be a DNR. Function/Cognitive Trajectory: Patient resides at home with roommates. Patient reported that he has been having multiple falls for the past couple of months. There has also been reports of seizure-like activities. Patient uses a cane for ambulation at home. He is independent of all his ADLS and is able to verbalize his needs. Review of Systems Constitutional: Denies increased appetite, Denies weight loss Eyes: Denies blurry vision, Denies dry eyes Ears, Nose, Mouth, and Throat: Reports poor balance, Denies abnormal hearing, Denies hearing loss, Denies nasal congestion Cardiovascular: Reports fainting, Denies chest pain, Denies foot swelling, Denies generalized swelling, Denies irregular heart rhythm, Denies shortness of breath Respiratory: Reports cough, Denies chest congestion, Denies shortness of breath Gastrointestinal: Denies abdominal pain, Denies black, tarry stools, Denies incontinent of stools, Denies nausea, Denies vomiting Genitourinary: Denies blood in urine, Denies urinary incontinence Musculoskeletal: Reports muscle weakness, Denies joint swelling, Denies numbness , Denies tingling Skin/Breast: Reports rash (bilateral upper extremities) Neurologic: Reports confusion, Reports frequent falls, Reports tremor(s) ( intermittent tremors to bilateral uper extremities), Denies abnormal hearing, Denies abnormal speech, Denies headache(s) Psychiatric: Reports confusion, Denies anxiety, Denies depression Hematologic/Lymphatic: Reports easy bruising PMFSH - History History Provided By: Patient, Family Member (patient`s daughter), Medical Record - Medical History Medical History: Medical History (Last Updated 02/27/18 @ 16:09 by Noemi Sims) Alcohol abuse Hypertension - Surgical History Surgical History: Surgical History (Last Reviewed 02/26/18 @ 16:32 by Sandee Sanders) H/O bilateral cataract extraction - Family History Family History: Family History (Last Updated 02/27/18 @ 16:10 by Noemi Sims) Brother Brain aneurysm Father Colon cancer Mother Liver cirrhosis Sister Diabetes mellitus Other Family history in first degree relatives is unremarkable - Social History I have reviewed the patient's Social History: Yes - Tobacco History Second Hand Smoke Exposure: Yes Tobacco Use In Past 30 Days: Yes Smoking Status: Heavy tobacco smoker Tobacco Type: Cigarettes - Alcohol History How Often Do You Have a Drink Containing Alcohol: 4 or more times a week - Substance Use History Substance History: No History of Abuse - Travel History Recent Travel in the USA Within the Last 8 Weeks: No Recent Travel Out of the Country Within the Last 8 Weeks: No - Immunization History Tetanus Immunization: >5 Years Hx Influenza Vaccine This Season: No Medications and Allergies Active Medications: Active Medications Hydrocodone Bitart/Acetaminophen ([place] 5/325) 1 tab PO Q6H PRN PRN Reason: pain Artificial Tears (Eucerin Cream) 1 applicatio TOPICAL BID [facility] Last Admin: 02/27/18 09:50 Dose: 1 applicatio Clonidine HCl (Catapres) 0.1 mg PO Q6H PRN PRN Reason: SYS BP GREATER THAN 160 MMHG Diphenhydramine HCl (Benadryl) 25 mg PO Q6H PRN PRN Reason: ITCHING Last Admin: 02/26/18 15:30 Dose: 25 mg Famotidine (Pepcid) 10 mg PO BID [facility] Last Admin: 02/27/18 09:47 Dose: 10 mg Flumazenil (Romazecon Inj) 0.2 mg IV.PUSH Q1M PRN PRN Reason: OVERSEDATION Flumazenil (Romazecon Inj) 0.2 mg IV.PUSH Q1M PRN PRN Reason: OVERSEDATION Haloperidol Lactate (Haldol Inj) 1 mg IV.PUSH Q15M PRN PRN Reason: for severe agitation Heparin Sodium (Porcine) (Heparin Inj) 5,000 units SQ Q8HR [facility] Last Admin: 02/27/18 05:25 Dose: 5,000 units Cefazolin/Sodium Chloride (Ancef 2 Gm Premix Inj) 2 gm in 100 mls @ 200 mls/hr IV.SIG Q8H [facility] Last Admin: 02/27/18 10:33 Dose: 200 mls/hr Sodium Chloride (1/2 Normal Saline Inj) 1,000 mls @ 50 mls/hr IV.CONT .Q20H [facility] Last Admin: 02/27/18 11:32 Dose: 50 mls/hr Lisinopril (Prinivil) 10 mg PO DAILY [facility] Last Admin: 02/27/18 09:47 Dose: 10 mg Lorazepam (Ativan) 1 mg PO Q4H PRN PRN Reason: for CIWA 8-10 Lorazepam (Ativan) 2 mg PO Q2H PRN PRN Reason: for CIWA 11-14 Lorazepam (Ativan Inj) 2 mg IV.PUSH Q2H PRN PRN Reason: for CIWA 11-14 Lorazepam (Ativan Inj) 2 mg IV.PUSH Q1H PRN PRN Reason: for CIWA 15-20 Lorazepam (Ativan Inj) 1 mg IV.PUSH Q4H PRN PRN Reason: for CIWA 8-10 Lorazepam (Ativan Inj) 2 mg IV.PUSH Q15M PRN PRN Reason: for CIWA > 20 Magnesium Oxide (Mag-Ox) 400 mg PO BID [facility] Last Admin: 02/27/18 09:47 Dose: 400 mg Metoprolol Tartrate (Lopressor) 25 mg PO BID [facility] Last Admin: 02/27/18 09:47 Dose: 25 mg Miscellaneous (Pill Splitter) 1 each OTHER UNSCH PRN PRN Reason: SEE LABEL COMMENTS Nicotine (Habitrol 21 Mg Patch.24 Hr) 1 patch T-DERMAL DAILY [facility] Last Admin: 02/27/18 09:49 Dose: 1 patch Ondansetron HCl (Zofran Inj) 4 mg IV.PUSH Q6H PRN PRN Reason: NAUSEA OR VOMITING Patch Removal (Remove Old Patch) 1 each T-DERMAL HS [facility] Last Admin: 02/26/18 21:37 Dose: 1 each Quetiapine Fumarate (Seroquel) 25 mg PO [facility] Last Admin: 02/26/18 21:34 Dose: 25 mg Sodium Chloride (Ns Flush) 2 ml IV.FLUSH PRN PRN PRN Reason: FLUSH AFTER USING IV ACCESS Last Admin: 02/27/18 09:49 Dose: 2 ml Thiamine HCl (Vitamin B1) 100 mg PO DAILY [facility] Last Admin: 02/27/18 09:47 Dose: 100 mg Allergies Allergy/AdvReac Type Severity Reaction Status Date / Time No Known Allergies Allergy Verified 02/16/18 17:39 Advance Directives Advance Directives Date on File: 02/27/18 (completed today) Living Will: No Healthcare Surrogate: Yes Health Care Surrogate Name and Number: HCS: Daxa Ramos alt HCS: Daxa Nelson (brothers) Today's verbally stated goals: Patient is hopeful that he will get better, go to rehabilitation and then home. Ethical and Legal Issues: None identified at this time Physical Exam Vital Signs: Vital Signs - 24 hr 02/26/18 13:50 02/26/18 16:00 02/26/18 16:53 Temperature 97.7 F Pulse Rate 80 88 88 Respiratory Rate 18 Blood Pressure 175/81 H Pulse Oximetry 97 02/26/18 20:00 02/27/18 00:00 02/27/18 04:00 Temperature 98.5 F 97.5 F L 98 F Pulse Rate 79 80 90 Respiratory Rate 18 18 18 Blood Pressure 138/64 160/78 H 187/86 H Pulse Oximetry 99 99 90 L 02/27/18 08:00 Temperature 97.4 F L Pulse Rate 85 Respiratory Rate 18 Blood Pressure 136/85 Pulse Oximetry 97 I&O: Intake & Output 02/25/18 02/26/18 02/27/18 02/28/18 06:59 06:59 06:59 06:59 Intake Total 4015 / 4015 1100 / 1100 1815 / 1815 Output Total 1550 / 1550 910 / 910 1000 / 1000 Balance 2465 / 2465 190 / 190 815 / 815 Weight 76.8 kg 76.7 kg 75.2 kg Physical Exam: CONSTITUTIONAL/GENERAL: This is an adequately nourished patient, in no apparent distress. TUBES/LINES/DRAINS: SKIN: Dry, itchy scaly rash to bilateral upper extremities. Ecchymoses on upper extremities. No wounds seen anteriorly. Skin temperature appropriate. Not diaphoretic. HEAD: Atraumatic. Normocephalic. EYES: Pupils equal and round and reactive. Extraocular motions intact. No scleral icterus. No injection or drainage. Fundi not examined. ENT: Hearing grossly normal. Nose without bleeding or purulent drainage. NECK: Trachea midline. Supple, nontender. CARDIOVASCULAR: Regular rate and rhythm without murmurs, gallops, or rubs. No JVD. Peripheral pulses symmetric. RESPIRATORY/CHEST: Symmetric, unlabored respirations. Clear to auscultation. Breath sounds equal bilaterally. No wheezes, rales, or rhonchi. GASTROINTESTINAL: Abdomen soft, non-tender, nondistended. No guarding. Bowel sounds present. GENITOURINARY: Without palpable bladder distension. MUSCULOSKELETAL: Extremities without clubbing, cyanosis, or edema. No joint tenderness or effusion noted. No calf tenderness. No mottling or clubbing. NEUROLOGICAL: Awake and alert. Motor and sensory grossly within normal limits. Follows commands. Moves all extremities. PSYCHIATRIC: No obvious anxiety/depression. no apparent hallucinations or other psychotic thought process. Diagnostic Tests Laboratory: Laboratory Results - last 72 hr 02/25/18 02/25/18 02/26/18 05:35 05:35 10:59 CBC w Diff Auto diff final WBC 7.8 RBC 2.63 L Hgb 9.0 L Hct 27.6 L MCV 105.0 H MCH 34.3 H MCHC 32.7 RDW 14.8 Plt Count 388 MPV 7.8 Neut % (Auto) 58.1 Lymph % (Auto) 17.0 Sullivan % (Auto) 14.2 H Eos % (Auto) 10.5 H Baso % (Auto) 0.2 Neut # (Auto) 4.6 Lymph # (Auto) 1.3 Sullivan # (Auto) 1.1 H Eos # (Auto) 0.8 H Baso # (Auto) 0.0 WBC Differential . Differential Comment . Sodium 143 Potassium 3.4 L Chloride 110 H Carbon Dioxide 23.4 Anion Gap 10 BUN 22 H Creatinine 1.50 H Estimated GFR 47 L Random Glucose 86 Calcium 8.0 L Magnesium 1.2 L Total Bilirubin AST ALT Alkaline Phosphatase Total Protein Albumin Vancomycin Trough 22.6 H 02/27/18 02/27/18 08:05 08:05 CBC w Diff WBC 8.2 RBC 2.80 L Hgb 9.8 L Hct 29.7 L MCV 106.2 H MCH 35.1 H MCHC 33.1 RDW 15.5 Plt Count 320 MPV 7.7 Neut % (Auto) 61.7 Lymph % (Auto) 16.7 Sullivan % (Auto) 12.1 H Eos % (Auto) 9.0 H Baso % (Auto) 0.5 Neut # (Auto) 5.1 Lymph # (Auto) 1.4 Sullivan # (Auto) 1.0 H Eos # (Auto) 0.7 H Baso # (Auto) 0.0 WBC Differential . Differential Comment Auto diff final Sodium 141 Potassium 3.9 Chloride 109 H Carbon Dioxide 23.5 Anion Gap 9 BUN 22 H Creatinine 1.45 H Estimated GFR 49 L Random Glucose 79 Calcium 9.0 Magnesium Total Bilirubin 0.3 AST 32 ALT 17 Alkaline Phosphatase 92 Total Protein 6.8 Albumin 2.0 L Vancomycin Trough Result Diagrams: 02/27/18 08:05 02/27/18 08:05 Microbiology: Microbiology 02/24/18 14:55 Aerobic Blood Culture - Preliminary Blood - Peripheral Staphylococcus aureus Anaerobic Blood Culture - Preliminary No growth in 3 days 02/22/18 19:10 Aerobic Blood Culture - Final Blood - Peripheral Staphylococcus aureus Anaerobic Blood Culture - Final Staphylococcus aureus 02/22/18 19:15 Aerobic Blood Culture - Final Blood - Peripheral Staphylococcus aureus Anaerobic Blood Culture - Final Staphylococcus aureus Imaging: Chest X-Ray 02/16/18 18:04 CONCLUSION: No evidence of acute cardiopulmonary disease. Head CT 02/16/18 18:04 CONCLUSION: 1. No acute intracranial abnormality. 2. Atrophy and chronic white matter changes. 3. Mild ventriculomegaly similar to before. . Knee X-Ray 02/16/18 18:07 CONCLUSION: No bony abnormality demonstrated. Nonspecific joint effusion. Peripheral artery disease. Thoracic Aorta CT 02/23/18 00:00 CONCLUSION: 1. Mild coarctation of the aorta as detailed above. There is mild poststenotic dilatation reaching a maximum diameter 3 cm. No dissection. 2. Pronounced carotid artery atherosclerotic calcifications partially seen. 3. Either high-grade stenosis or short segment occlusion involving the right subclavian artery. 4. Hepatic steatosis. Procedures: 02/25/18-transesophageal echocardiogram Patient/Family Conference Family Conference Location: Bedside Issues Discussed: * Palliative care role, purpose, approach * Additional medical, psychosocial, and spiritual history * Patients general health, functional status, and cognitive changes in the months leading up to the current hospitalization * Patient/family understanding of the current medical problems * Patient/family understanding of prognosis * Patients goals of care as best understood from advance directives and/or conversations and/or values * Current medical treatment options and benefits/burdens of those options * Likely scenarios comparing ongoing aggressive care with a transition to comfort measures only * Questions answered to the best of my ability * Palliative care contact information provided Assessment and Plan - Disease Oriented Problem List (1) Bacteremia due to Staphylococcus aureus (2) Falls frequently (3) Bacteremia (4) ETOH abuse (5) Tobacco abuse - Symptom Scale (1) Pain 0-10 Scale: 2 Comment: Hx of injury to right foot. Patient came in complaining of pain to his bilateral knees and has had multiple fals at home. (2) Generalized weakness 0-10 Scale: Unable to quantify Pertinent Non-Medical Issues: Psychosocial: Patient is originally from [place], [place]. He moved to [place] approximately 40 years ago. Patient was once and is . He has 2 adult children son-Adelso Mittal and daughter Arabella Ames who live locally. Patient used to work in construction doing plastering. He stopped working after he injured his right foot. Currently he resides in a home with 3 roommates. Spiritual: Legal: Patient completed and signed healthcare surrogate form and [facility] DNR today-02/27/18 Ethical issues impacting care: None identified at this time Important Contacts: HCS:-Brother- Daxa Ramos alt HCS:Brother- Daxa Nelson Daughter-Arabella Ames [phone] Son-Adelso Mittal [phone] Brother-Lionel Mittal [phone] Ylozte-nz-zwd-Aggie Mauricio [phone] Friend-Meaghan Martinez [phone] Prognosis: Mr. Mittal is a 67-year-old male with a medical history of alcohol abuse and hypertension. Patient presented to the emergency room on 02/16/18 with complaints of multiple falls at home, pain to his right knee and reports of seizures at home. Clinical course complicated with persistent bacteremia despite treatment with antibiotics and generalized weakness. If patient responds to antibiotic therapy, and gets rehabilitation and changes his life style- he most likely will live a normal life and on the other hand if the above interventions and life style changes do not occur then patient will continue to have complications , deteriorate and decline. Code Status: No Code DNR Plan: PLAN: Legal decision maker: Patient is alert , oriented to self, place and situation. Currently able to participate in medical decision making. In the event that patient is incapacitated, he has designated his brother Daxa Ramos as his health care surrogate and his other brother Omar Mittal as his alternate health care surrogate. Recommending shared decision making since patient has had reported episodes of confusion during this hospitalization. Goals: Aggressive short of no code. Patient has made himself a DNR.He indicated that he does not want to be connected to tubes or machines. Patient states that he would never want to live in a vegetative state. Patient is hopeful that he will be medically treated and be able to be discharged to a halfway facility for rehabilitation since he feels weak. CODE STATUS: No code DNR/DNI SYMPTOMS: * Confusion: Patient has history of EtOH abuse. Head CT on 02/16/18 revealed atrophy and chronic low attenuation in the periventricular white matter and mild ventriculomegaly. Currently oriented to self, place and situation. Appears to be resolving. * Pain:Hx of injury to right foot. Patient came in complaining of pain to his bilateral knees and has had multiple falls at home. * Generalized weakness:Patient has persistent bacteremia. Hx of ETOH abuse and has had multiple falls at home. Physical therapy consulted, recommending PT at home. Palliative care will continue to follow the patient during hospital course as condition evolves, to assist patient/decision-maker with understanding of their medical conditions, weighing benefits/burdens of treatment options, for clarification of goals of treatment. Additionally will assist with any symptoms of palliative concern Appreciation Thank you for the opportunity to participate in the care of Florentino Mittal. Attestation Attestation: To help prompt me to consider important information that might be impacting today's encounter and assessment, information from prior notes written by myself or my colleagues may have been "brought forward" into today's note. My signature on this note, however, is an attestation that I personally performed the exam, history, and/or decision-making noted today, and, unless otherwise indicated, the interactions with patient, family, and staff as well as the review of records all occurred today. I also attest that the listed assessment and stated plan reflect my best clinical judgment today based on the combination of historical information, prior notes, and today's exam/ interactions. When time spent is documented, it refers only to time spent today by the signer, or if indicated, combined time spent today by collaborating physician/nurse practitioner.
[2018-02-27] MEDS: QUEtiapine 25 MG Tablet PO SCH (21:10)
[2018-02-28 04:47] LABS: Baso % (Auto) 0.6 % (0.0-2.0); Eos # (Auto) 0.7 th/mm3 (0.0-0.4); Eos % (Auto) 9.6 % (0.0-4.0); Hematocrit 31.5 % (39.0-51.0); Hemoglobin 10.5 gm/dL (13.0-17.0); Lymph # (Auto) 1.5 th/mm3 (1.0-4.8); Lymph % (Auto) 19.8 % (9.0-44.0); Mean Corpuscular HGB Conc 33.2 % (32.0-36.0); Mean Corpuscular Hemoglobin 35.1 pg (27.0-34.0); Mean Corpuscular Volume 105.7 fL (80.0-100.0); Mean Platelet Volume 7.8 fL (7.0-11.0); Mono # (Auto) 0.9 th/mm3 (0.0-0.9); Mono % (Auto) 11.6 % (0.0-8.0); Neut # (Auto) 4.3 th/mm3 (1.8-7.7); Neut % (Auto) 58.4 % (16.0-70.0); Platelet Count 300 th/mm3 (150-450); Red Blood Count 2.98 mil/mm3 (4.50-5.90); Red Cell Distribution Width 15.6 % (11.6-17.2); White Blood Count 7.4 th/mm3 (4.0-11.0)
[2018-02-28 05:16] LABS: Carbon Dioxide 25.1 meq/L (21.0-32.0); Potassium 4.1 meq/L (3.5-5.1)
[2018-02-28 05:18] LABS: Vancomycin,Random 19.6 Comment
[2018-02-28] MEDS: Sodium Chloride 0.45 % Inj 1,000 ML IV.CONT SCH ×2 (05:20→22:43)
[2018-02-28] MEDS: Heparin - SQ 10,000 UNITS/ML Vial SQ SCH ×3 (05:23→22:42)
[2018-02-28] MEDS: Lisinopril 10 MG Tablet PO SCH (09:31)
[2018-02-28] MEDS: ceFAZolin 2 GM Premix Inj 2 GM/100 ML BAG IV.SIG SCH ×2 (09:32→15:54)
[2018-02-28] MEDS: Famotidine 20 MG Tablet PO SCH ×2 (09:32→20:08)
[2018-02-28] MEDS: Metoprolol Tartrate 25 MG Tablet PO SCH ×2 (09:32→20:08)
[2018-02-28] MEDS: Magnesium Oxide 400 MG Tablet PO SCH ×2 (09:32→20:08)
--- NOTE | 2018-02-28 10:36 | P.PN ---
Subjective Interval history: Follow-up for MSSA bacteremia, altered mental status, alcohol withdrawal, sepsis. Patient seen and examined today. States he is doing better. Complaints of constipation. Patient has cough, not expectorating anything. Otherwise, denies pain and discomfort. Denies SOB/ dyspnea. Denies chest pain , palpitations, headaches. Denies fevers, chills, n/v. Denies dysuria. As per nursing, patient has sundowning syndrome and gets confused at around 5: 00 in the afternoon that has been an ongoing thing for 2 days. Physical Exam Vital signs: Vital Signs 02/27/18 12:00 02/27/18 16:00 02/27/18 17:00 Temperature 98.2 F 98.6 F Pulse Rate 73 77 82 Respiratory Rate 18 20 Blood Pressure 110/56 L 198/87 H Pulse Oximetry 98 98 02/27/18 18:30 02/27/18 20:00 02/28/18 00:00 Temperature 98.3 F 98.9 F Pulse Rate 87 63 Respiratory Rate 18 18 Blood Pressure 175/86 H 163/73 H 159/73 H Pulse Oximetry 99 98 02/28/18 04:00 02/28/18 08:00 Temperature 97.7 F 98 F Pulse Rate 82 108 H Respiratory Rate 18 20 Blood Pressure 158/78 H 194/81 H Pulse Oximetry 96 100 Intake & Output 02/27/18 02/28/18 02/28/18 18:59 06:59 18:59 Intake Total 600 / 600 1747 / 1747 340 / 340 Output Total 1100 / 1100 950 / 950 400 / 400 Balance -500 / -500 797 / 797 -60 / -60 Weight 76.6 kg Intake: IV 200 / 200 897 / 897 100 / 100 1/2 Normal Saline Inj 1,000 ML 797 / 797 @ 50 mls/hr IV.CONT .Q20H MARK Rx#:[id number] Ancef 2 GM Premix Inj 2 gm In 200 / 200 100 / 100 100 / 100 100 ml @ 200 mls/hr IV.SIG Q8H MARK Rx#:[id number] Oral 400 / 400 850 / 850 240 / 240 Output: Urine 1100 / 1100 950 / 950 400 / 400 Other: Date of Last Bowel Movement 02/27/18 Narrative: GENERAL: This is a well-nourished, well-developed patient, in no apparent distress. SKIN: Warm and dry. Multiple wound throughout the body in different healing stages. Severe dry skin, thick. Left upper arm small open wound, draining scant serous fluid HEENT: Normocephalic. Pupils equal round and reactive. Nose without bleeding. Airway patent. NECK: Trachea midline. CARDIOVASCULAR: Regular rate and rhythm with murmurs. No gallops, or rubs. RESPIRATORY: Coarse breath sounds. No wheezes, rales, or rhonchi. GASTROINTESTINAL: Abdomen soft, non-tender, nondistended. Bowel Sounds normoactive x4. MUSCULOSKELETAL: Extremities without clubbing, cyanosis, or edema. NEUROLOGICAL: Awake and alert. Follows commands. Forgetful. Moves all extremities. Normal speech. Results - Labs CBC & Chem 7: 02/28/18 03:44 02/28/18 03:44 Laboratory Results - last 24 hr 02/28/18 02/28/18 03:44 03:44 WBC 7.4 RBC 2.98 L Hgb 10.5 L Hct 31.5 L MCV 105.7 H MCH 35.1 H MCHC 33.2 RDW 15.6 Plt Count 300 MPV 7.8 Neut % (Auto) 58.4 Lymph % (Auto) 19.8 [place] % (Auto) 11.6 H Eos % (Auto) 9.6 H Baso % (Auto) 0.6 Neut # (Auto) 4.3 Lymph # (Auto) 1.5 [place] # (Auto) 0.9 Eos # (Auto) 0.7 H Baso # (Auto) 0.0 WBC Differential . Differential Comment Auto diff final Sodium 141 Potassium 4.1 Chloride 108 H Carbon Dioxide 25.1 Anion Gap 8 BUN 24 H Creatinine 1.68 H Estimated GFR 41 L Random Glucose 85 Calcium 9.0 Random Vancomycin 19.6 Microbiology 02/24/18 14:55 Blood - Peripheral Aerobic Blood Culture - Final Staphylococcus aureus 02/24/18 14:55 Blood - Peripheral Anaerobic Blood Culture - Preliminary No growth in 3 days - Procedures ECHOCARDIOGRAM CONCLUSIONS Normal left ventricular size. Mild concentric left ventricular hypertrophy. The left ventricular systolic function is normal with an estimated ejection fraction in the range of 55-60%. Trace mitral valve regurgitation. There is trace tricuspid valve regurgitation. The estimated pulmonary arterial pressure is 44 mmHg. Assessment and Plan - Assessment (1) Alcohol withdrawal Code(s): F10.239 - Alcohol dependence with withdrawal, unspecified Status: Acute (2) Falls frequently Code(s): R29.6 - Repeated falls Status: Acute - Plan 67-year-old male patient with a known medical history of alcohol abuse who presented to the ED with complaints of multiple falls at home, right knee pain, and reports of seizures at home initially admitted at [facility]. Sepsis, bacteremia high-grade with MSSA -Unknown etiology at this time, chest x-ray is unremarkable, CBC is normal, urinalysis was clear, patient does have excoriations/right upper extremity cellulitis could be possible source, however patient also has coarctation of the aorta, possible obstruction of the subclavian artery. Further radiologist need to be evaluated -Blood cultures positive 4/4 with MSSA -Patient is currently on vancomycin and Ancef -Continue to follow-up blood culture showing gram-positive pair clusters -Echocardiogram does not indicate any acute abnormalities. However in light of normal echocardiogram, murmur and high-grade bacteremia patient will require PRIYANKA -Infectious disease, Dr Polanco has been following the patient from [place]. Dr. Ybarra took over the case. Adjusted dose of medication Ancef. -Cardiology consulted for PRIYANKA, Dr. Rodriguez did PRIYANKA -The left ventricular systolic function is normal with an estimated ejection fraction in the range of 55-60%. Trace mitral valve regurgitation. -Continue IV antibiotics for now. -BC NGTD Constipation -Bowel Management Alcohol withdrawal delirium tremens Multiple falls, chronic alcohol abuse Left knee pain -Head CT negative for abnormalities -Continue thiamine, multivitamin -Left knee x-ray showing left knee large joint effusion suspect secondary to falls -Doesn't appear to have any edema/ effusion on exam. Does not complain of pain Profound weakness with recurrent falls -Secondary to the above -Left knee x-ray reviewed and showing left knee large joint effusion suspect secondary to falls. Will continue to monitor. No need for aspiration per IR. Improved. -Pain medication as needed per pain scale. With bowel regimen -Physical therapy eval and treat Chronic kidney disease stage III, 3-1.5 -IV fluids low dose. -Continue monitor renal functions -Avoid nephrotoxins. -Recheck renal indicis Hypertension -Metoprolol 25 mg twice daily -Continue lisinopril 10 mg twice daily -Monitor BP trend Tobacco abuse: -Encouraged cessation. -Nicotine patch. Urticaria -? fleas from home and/or scabies. -Benadryl as needed for itching. -Eucerin cream ordered as needed. -Encouraged self hygiene and bathing. -Status post Elimite treatment -Does not appear to have fleas or scabies, patient appears to have eczema with multiple plaquing that has not been treated well. Severe dry skin. Continue with Eucerin. DVT prophylaxis SCDs, heparin Full code Discussed with patient, nurse Discharge Planning: Plan to DC SNF when clinically improved, cleared by infectious disease. Currently blood cultures continues to still be positive on IV antibiotics (1) Alcohol withdrawal Qualifiers: Complication of substance-induced condition: uncomplicated Qualified Code(s) : F10.230 - Alcohol dependence with withdrawal, uncomplicated
[2018-02-28] MEDS ORDERED: Bisacodyl 10 MG Supp RECTAL PRN (13:36)
[2018-02-28] MEDS: Senna/Docusate Sodium 8.6/50 MG Tablet PO SCH (20:08)
[2018-02-28] MEDS: QUEtiapine 25 MG Tablet PO SCH (20:08)
[2018-03-01] MEDS: ceFAZolin 2 GM Premix Inj 2 GM/100 ML BAG IV.SIG SCH ×4 (00:08→23:21)
[2018-03-01] MEDS: Sodium Chloride 0.45 % Inj 1,000 ML IV.CONT SCH ×3 (02:30→14:40)
[2018-03-01] MEDS: Heparin - SQ 10,000 UNITS/ML Vial SQ SCH ×3 (05:41→22:15)
[2018-03-01 07:43] LABS: Baso # (Auto) 0.1 th/mm3 (0.0-0.2); Baso % (Auto) 0.8 % (0.0-2.0); Eos # (Auto) 0.7 th/mm3 (0.0-0.4); Eos % (Auto) 11.1 % (0.0-4.0); Hematocrit 25.7 % (39.0-51.0); Hemoglobin 8.5 gm/dL (13.0-17.0); Lymph # (Auto) 1.2 th/mm3 (1.0-4.8); Lymph % (Auto) 17.6 % (9.0-44.0); Mean Corpuscular Hemoglobin 34.8 pg (27.0-34.0); Mean Corpuscular Volume 105.5 fL (80.0-100.0); Mono # (Auto) 0.9 th/mm3 (0.0-0.9); Neut # (Auto) 3.9 th/mm3 (1.8-7.7); Neut % (Auto) 57.5 % (16.0-70.0); Platelet Count 259 th/mm3 (150-450); Red Blood Count 2.44 mil/mm3 (4.50-5.90); Red Cell Distribution Width 15.1 % (11.6-17.2); White Blood Count 6.7 th/mm3 (4.0-11.0)
[2018-03-01 08:00] LABS: Calcium 8.6 mg/dL (8.5-10.1); Carbon Dioxide 24.6 meq/L (21.0-32.0); Potassium 4.1 meq/L (3.5-5.1)
[2018-03-01] MEDS: Lisinopril 10 MG Tablet PO SCH (08:12)
[2018-03-01] MEDS: Senna/Docusate Sodium 8.6/50 MG Tablet PO SCH ×2 (08:13→20:02)
[2018-03-01] MEDS: Magnesium Oxide 400 MG Tablet PO SCH ×2 (08:13→20:02)
[2018-03-01] MEDS: Famotidine 20 MG Tablet PO SCH ×2 (08:13→20:02)
[2018-03-01] MEDS: Metoprolol Tartrate 25 MG Tablet PO SCH ×2 (08:13→20:02)
--- NOTE | 2018-03-01 10:20 | P.PN ---
Subjective Interval history: Follow-up for MSSA bacteremia, altered mental status, alcohol withdrawal, sepsis. Patient seen and examined today. States he is doing okay. Denies pain and discomfort. Denies SOB/ dyspnea. Denies chest pain, palpitations, headaches. Denies fevers, chills, n/v. Denies dysuria. No acute issues overnight. Physical Exam Vital signs: Vital Signs 02/28/18 12:00 02/28/18 12:16 02/28/18 16:00 Temperature 97.4 F L 98 F Pulse Rate 70 69 75 Respiratory Rate 20 18 Blood Pressure 147/68 H 182/81 H Pulse Oximetry 96 100 02/28/18 16:49 02/28/18 20:00 03/01/18 00:00 Temperature 97.6 F 97.7 F Pulse Rate 89 63 56 L Respiratory Rate 18 18 Blood Pressure 177/78 H 141/64 H Pulse Oximetry 97 96 03/01/18 04:00 03/01/18 05:16 03/01/18 07:00 Temperature 97.6 F Pulse Rate 75 60 Respiratory Rate 18 12 Blood Pressure 142/64 H Pulse Oximetry 97 03/01/18 07:58 03/01/18 08:00 03/01/18 08:28 Temperature 97.5 F L Pulse Rate 70 76 62 Respiratory Rate 18 16 Blood Pressure 124/75 Pulse Oximetry 97 Intake & Output 02/28/18 03/01/18 03/01/18 18:59 06:59 18:59 Intake Total 920 / 920 1100 / 1100 460 / 460 Output Total 700 / 700 600 / 600 Balance 220 / 220 500 / 500 460 / 460 Weight 97.6 kg Intake: IV 200 / 200 1100 / 1100 100 / 100 1/2 Normal Saline Inj 1,000 ML 1000 / 1000 @ 75 mls/hr IV.CONT .[id number] MARK Rx#:[id number] Ancef 2 GM Premix Inj 2 gm In 200 / 200 100 / 100 100 / 100 100 ml @ 200 mls/hr IV.SIG Q8H MARK Rx#:[id number] Oral 720 / 720 360 / 360 Output: Urine 700 / 700 600 / 600 Other: Date of Last Bowel Movement 02/28/18 02/28/18 # Bowel Movements 1 Narrative: GENERAL: This is a well-nourished, well-developed patient, in no apparent distress. SKIN: Warm and dry. Multiple wound throughout the body in different healing stages. Severe dry skin, thick. HEENT: Normocephalic. Pupils equal round and reactive. Nose without bleeding. Airway patent. NECK: Trachea midline. CARDIOVASCULAR: Regular rate and rhythm with murmurs. No gallops, or rubs. RESPIRATORY: Coarse breath sounds. No wheezes, rales, or rhonchi. GASTROINTESTINAL: Abdomen soft, non-tender, nondistended. Bowel Sounds normoactive x4. MUSCULOSKELETAL: Extremities without clubbing, cyanosis, or edema. NEUROLOGICAL: Awake and alert. Follows commands. Forgetful. Moves all extremities. Normal speech. Results - Labs CBC & Chem 7: 03/01/18 06:20 03/01/18 06:20 Laboratory Results - last 24 hr 03/01/18 03/01/18 06:20 06:20 WBC 6.7 RBC 2.44 L Hgb 8.5 L D Hct 25.7 L MCV 105.5 H MCH 34.8 H MCHC 33.0 RDW 15.1 Plt Count 259 MPV 8.0 Neut % (Auto) 57.5 Lymph % (Auto) 17.6 [place] % (Auto) 13.0 H Eos % (Auto) 11.1 H Baso % (Auto) 0.8 Neut # (Auto) 3.9 Lymph # (Auto) 1.2 [place] # (Auto) 0.9 Eos # (Auto) 0.7 H Baso # (Auto) 0.1 WBC Differential . Differential Comment Auto diff final Sodium 140 Potassium 4.1 Chloride 106 Carbon Dioxide 24.6 Anion Gap 9 BUN 27 H Creatinine 1.59 H Estimated GFR 44 L Random Glucose 78 Calcium 8.6 Microbiology 02/27/18 08:05 Blood - Peripheral Aerobic Blood Culture - Preliminary No growth in 1 day 02/27/18 08:05 Blood - Peripheral Anaerobic Blood Culture - Preliminary No growth in 1 day 02/27/18 06:15 Blood - Peripheral Aerobic Blood Culture - Preliminary No growth in 1 day 02/27/18 06:15 Blood - Peripheral Anaerobic Blood Culture - Preliminary No growth in 1 day 02/24/18 14:55 Blood - Peripheral Aerobic Blood Culture - Final Staphylococcus aureus 02/24/18 14:55 Blood - Peripheral Anaerobic Blood Culture - Preliminary No growth in 4 days - Procedures ECHOCARDIOGRAM CONCLUSIONS Normal left ventricular size. Mild concentric left ventricular hypertrophy. The left ventricular systolic function is normal with an estimated ejection fraction in the range of 55-60%. Trace mitral valve regurgitation. There is trace tricuspid valve regurgitation. The estimated pulmonary arterial pressure is 44 mmHg. Assessment and Plan - Assessment (1) Alcohol withdrawal Code(s): F10.239 - Alcohol dependence with withdrawal, unspecified Status: Acute (2) Falls frequently Code(s): R29.6 - Repeated falls Status: Acute - Plan 67-year-old male patient with a known medical history of alcohol abuse who presented to the ED with complaints of multiple falls at home, right knee pain, and reports of seizures at home initially admitted at [facility]. Sepsis, bacteremia high-grade with MSSA -Unknown etiology at this time, chest x-ray is unremarkable, CBC is normal, urinalysis was clear, patient does have excoriations/right upper extremity cellulitis could be possible source, however patient also has coarctation of the aorta, possible obstruction of the subclavian artery. Further radiologist need to be evaluated -Blood cultures positive 4/4 with MSSA -Patient is currently on vancomycin and Ancef -Continue to follow-up blood culture showing gram-positive pair clusters -Echocardiogram does not indicate any acute abnormalities. However in light of normal echocardiogram, murmur and high-grade bacteremia patient will require PRIYANKA -Infectious disease, Dr Polanco has been following the patient from [place]. Dr. Ybarra took over the case. Adjusted dose of medication Ancef. -Cardiology consulted for PRIYANKA, Dr. Rodriguez did PRIYANKA -The left ventricular systolic function is normal with an estimated ejection fraction in the range of 55-60%. Trace mitral valve regurgitation. -Continue IV antibiotics for now. -BC NGTD Constipation -Bowel regimen Alcohol withdrawal delirium tremens Multiple falls, chronic alcohol abuse Profound weakness with recurrent falls -Head CT negative for abnormalities -Continue thiamine, multivitamin -Left knee x-ray showing left knee large joint effusion suspect secondary to falls. No need for aspiration per IR. -Doesn't appear to have any edema/ effusion on exam. Does not complain of pain -Pain medication as needed per pain scale. With bowel regimen -Physical therapy eval and treat -Improved left knee pain Chronic kidney disease stage III Baseline 1.4-1.5 -IV fluids low dose. -Continue monitor renal functions -Avoid nephrotoxins. -Recheck renal indicis, if improved DC IVF Hypertension -Metoprolol 25 mg twice daily -Cont lisinopril 10 mg, renal protection, Avoid increasing dose. -Monitor BP trend Tobacco abuse: -Encouraged cessation. -Nicotine patch. Urticaria -? fleas from home and/or scabies. Status post Elimite treatment -Benadryl as needed for itching. -Encouraged self hygiene and bathing. -Does not appear to have fleas or scabies, patient appears to have eczema with multiple plaquing that has not been treated well. Severe dry skin. Continue with Eucerin. DVT prophylaxis SCDs, heparin Full code Discussed with patient, nurse Discharge Planning: Plan to DC SNF when clinically improved, cleared by infectious disease. (1) Alcohol withdrawal Qualifiers: Complication of substance-induced condition: uncomplicated Qualified Code(s) : F10.230 - Alcohol dependence with withdrawal, uncomplicated
[2018-03-01] MEDS: QUEtiapine 25 MG Tablet PO SCH (20:02)
[2018-03-02] MEDS: Sodium Chloride 0.45 % Inj 1,000 ML IV.CONT SCH ×3 (00:08→17:30)
[2018-03-02] MEDS: Heparin - SQ 10,000 UNITS/ML Vial SQ SCH ×3 (06:22→21:08)
[2018-03-02 07:48] LABS: Baso % (Auto) 0.5 % (0.0-2.0); Eos # (Auto) 0.8 th/mm3 (0.0-0.4); Eos % (Auto) 11.8 % (0.0-4.0); Hematocrit 26.4 % (39.0-51.0); Hemoglobin 8.8 gm/dL (13.0-17.0); Lymph % (Auto) 15.6 % (9.0-44.0); Mean Corpuscular HGB Conc 33.3 % (32.0-36.0); Mean Corpuscular Volume 105.1 fL (80.0-100.0); Mono # (Auto) 0.7 th/mm3 (0.0-0.9); Mono % (Auto) 11.4 % (0.0-8.0); Neut # (Auto) 3.9 th/mm3 (1.8-7.7); Neut % (Auto) 60.7 % (16.0-70.0); Platelet Count 266 th/mm3 (150-450); Red Blood Count 2.52 mil/mm3 (4.50-5.90); Red Cell Distribution Width 15.1 % (11.6-17.2); White Blood Count 6.5 th/mm3 (4.0-11.0)
[2018-03-02 08:11] LABS: Calcium 8.9 mg/dL (8.5-10.1); Carbon Dioxide 25.6 meq/L (21.0-32.0); Potassium 4.3 meq/L (3.5-5.1)
[2018-03-02] MEDS: ceFAZolin 2 GM Premix Inj 2 GM/100 ML BAG IV.SIG SCH ×3 (09:54→23:49)
[2018-03-02] MEDS: Magnesium Oxide 400 MG Tablet PO SCH ×2 (09:56→21:09)
[2018-03-02] MEDS: Famotidine 20 MG Tablet PO SCH (09:57)
[2018-03-02] MEDS: Senna/Docusate Sodium 8.6/50 MG Tablet PO SCH ×2 (09:59→21:14)
[2018-03-02] MEDS: Metoprolol Tartrate 25 MG Tablet PO SCH (09:59)
[2018-03-02] MEDS: Lisinopril 10 MG Tablet PO SCH (09:59)
--- NOTE | 2018-03-02 10:13 | P.PNIM ---
Subjective Interval history: Follow-up sepsis, bacteremia with high-grade MSSA, EtOH, and hypertension. Patient seen and examined sitting on the side of the bed eating breakfast, denies any abdominal pain, nausea or vomiting. Patient states that he is doing better, denies any fever or chills, denies any pain, chest pain or shortness of breath. Patient denies any diarrhea or constipation. Physical Exam Vital signs: Vital Signs 03/01/18 11:46 03/01/18 12:20 03/01/18 12:34 Temperature 97.4 F L Pulse Rate 66 64 57 L Respiratory Rate 20 16 Blood Pressure 124/61 Pulse Oximetry 99 03/01/18 15:38 03/01/18 16:40 03/01/18 19:32 Temperature 98 F Pulse Rate 82 86 65 Respiratory Rate 18 16 Blood Pressure 145/76 H Pulse Oximetry 99 03/01/18 20:00 03/02/18 00:00 03/02/18 04:00 Temperature 98.2 F 97.9 F 97.7 F Pulse Rate 95 H 66 73 Respiratory Rate 18 18 18 Blood Pressure 136/70 161/68 H 178/79 H Pulse Oximetry 99 98 97 03/02/18 08:00 03/02/18 08:19 Temperature 98.0 F Pulse Rate 85 92 H Respiratory Rate 17 17 Blood Pressure 170/74 H Pulse Oximetry 95 Intake & Output 03/01/18 03/02/18 03/02/18 18:59 06:59 18:59 Intake Total 1800 / 1800 1100 / 1100 Output Total 900 / 900 800 / 800 Balance 900 / 900 300 / 300 Weight 79.8 kg Intake: IV 1200 / 1200 1100 / 1100 1/2 Normal Saline Inj 1,000 ML 1000 / 1000 1000 / 1000 @ 75 mls/hr IV.CONT .[id number] MARK Rx#:[id number] Ancef 2 GM Premix Inj 2 gm In 200 / 200 100 / 100 100 ml @ 200 mls/hr IV.SIG Q8H MARK Rx#:[id number] Oral 600 / 600 Output: Urine 900 / 900 800 / 800 Other: Date of Last Bowel Movement 02/28/18 02/28/18 Narrative: GENERAL: Well-developed, well-nourished, alert and oriented x3 in no apparent distress SKIN: Warm and dry. Severe dry skin HEAD: Atraumatic. Normocephalic. EYES: Pupils equal and round. No scleral icterus. No injection or drainage. ENT: No nasal bleeding or discharge. Mucous membranes pink and moist. NECK: Trachea midline. No JVD. CARDIOVASCULAR: Regular rate and rhythm. RESPIRATORY: No accessory muscle use. Clear to auscultation. Breath sounds equal bilaterally. GASTROINTESTINAL: Abdomen obese, soft, non-tender, nondistended. Hepatic and splenic margins not palpable. MUSCULOSKELETAL: Extremities without clubbing, cyanosis, or edema. No obvious deformities. NEUROLOGICAL: Awake and alert. No obvious cranial nerve deficits. Motor grossly within normal limits. Moving all 4 extremities normal speech. PSYCHIATRIC: Appropriate mood and affect; insight and judgment unreliable l. Results - Labs CBC & Chem 7: 03/02/18 06:02 03/02/18 06:02 Laboratory Results - last 24 hr 03/02/18 03/02/18 06:02 06:02 WBC 6.5 RBC 2.52 L Hgb 8.8 L Hct 26.4 L MCV 105.1 H MCH 35.0 H MCHC 33.3 RDW 15.1 Plt Count 266 MPV 8.0 Neut % (Auto) 60.7 Lymph % (Auto) 15.6 [place] % (Auto) 11.4 H Eos % (Auto) 11.8 H Baso % (Auto) 0.5 Neut # (Auto) 3.9 Lymph # (Auto) 1.0 [place] # (Auto) 0.7 Eos # (Auto) 0.8 H Baso # (Auto) 0.0 WBC Differential . Differential Comment Auto diff final Sodium 141 Potassium 4.3 Chloride 108 H Carbon Dioxide 25.6 Anion Gap 7 BUN 23 H Creatinine 1.52 H Estimated GFR 46 L Random Glucose 82 Calcium 8.9 Microbiology 02/27/18 08:05 Blood - Peripheral Aerobic Blood Culture - Preliminary No growth in 2 days 02/27/18 08:05 Blood - Peripheral Anaerobic Blood Culture - Preliminary No growth in 2 days 02/27/18 06:15 Blood - Peripheral Aerobic Blood Culture - Preliminary No growth in 2 days 02/27/18 06:15 Blood - Peripheral Anaerobic Blood Culture - Preliminary No growth in 2 days 02/24/18 14:55 Blood - Peripheral Aerobic Blood Culture - Final Staphylococcus aureus 02/24/18 14:55 Blood - Peripheral Anaerobic Blood Culture - Final No growth in 5 days - Procedures ECHOCARDIOGRAM CONCLUSIONS Normal left ventricular size. Mild concentric left ventricular hypertrophy. The left ventricular systolic function is normal with an estimated ejection fraction in the range of 55-60%. Trace mitral valve regurgitation. There is trace tricuspid valve regurgitation. The estimated pulmonary arterial pressure is 44 mmHg. Assessment and Plan - Assessment (1) Alcohol withdrawal Code(s): F10.239 - Alcohol dependence with withdrawal, unspecified Status: Acute (2) Falls frequently Code(s): R29.6 - Repeated falls Status: Acute - Plan 67-year-old male patient with a known medical history of alcohol abuse who presented to the ED with complaints of multiple falls at home, right knee pain, and reports of seizures at home initially admitted at [facility]. Sepsis, bacteremia high-grade with MSSA -Unknown etiology at this time, chest x-ray is unremarkable, CBC is normal, urinalysis was clear, patient does have excoriations/right upper extremity cellulitis could be possible source, however patient also has coarctation of the aorta, possible obstruction of the subclavian artery. Further radiologist need to be evaluated -Blood cultures positive 08/20 with MSSA -continue on Ancef , Vanco discontinued -Continue to follow-up blood culture showing gram-Staph Aureus on 02/24, 02/27 - no growth, follow blood cultures -Infectious disease, Dr Polanco has been following the patient from [facility]. Dr. Ybarra took over the case. Adjusted dose of medication Ancef. -Cardiology consulted for PRIYANKA, Dr. Rodriguez did PRIYANKA -The left ventricular systolic function is normal with an estimated ejection fraction in the range of 55-60%. Trace mitral valve regurgitation. -Echocardiogram does not indicate any acute abnormalities. -Continue IV antibiotics for now -monitor CBC and BMP Alcohol withdrawal delirium tremens Multiple falls, chronic alcohol abuse Profound weakness with recurrent falls -Head CT negative for abnormalities -Continue thiamine, multivitamin -Left knee x-ray showing left knee large joint effusion suspect secondary to falls. No need for aspiration per IR. -Doesn't appear to have any edema/ effusion on exam. Does not complain of pain -Pain medication as needed per pain scale. With bowel regimen -Physical therapy eval and treat -Improved left knee pain Chronic kidney disease stage III Baseline 1.4-1.5 -IV fluids low dose. -Continue monitor renal functions -Avoid nephrotoxins. -Recheck renal indicis, if improved DC IVF Hypertension -BP elevated -increase Metoprolol -Cont lisinopril 10 mg, renal protection, Avoid increasing dose. -Monitor BP trend Tobacco abuse: -Encouraged cessation. -Nicotine patch. Urticaria -? fleas from home and/or scabies. Status post Elimite treatment -Benadryl as needed for itching. -Encouraged self hygiene and bathing. -Does not appear to have fleas or scabies, patient appears to have eczema with multiple plaquing that has not been treated well. Severe dry skin. - - moisturize skin, Continue with Eucerin. Constipation -improved -Bowel regimen Code Status: DNR Discussed Condition With: patient and nurse (1) Alcohol withdrawal Qualifiers: Complication of substance-induced condition: uncomplicated Qualified Code(s) : F10.230 - Alcohol dependence with withdrawal, uncomplicated
[2018-03-02] MEDS ORDERED: Metoprolol Tartrate 25 MG Tablet PO ONE (11:00)
--- NOTE | 2018-03-02 14:14 | P.PNID ---
Subjective Remarks: Id Xcover for Dr.Reba Polanco 67 y/o M admitted with AMS, Right knee pain. H/o falls at home. Was in ICU initially. Seen by at then transferred to [facility] for PRIYANKA. PRIYANKA ordered due to persistent bacteremia. PRIYANKA negative. Knee effusion could not be tapped appears to have improved now with reduced swelling. Rash improved. MSSA bacteremia persistent source likely skin breaks. Possible septic arthritis right knee on admission appears to be improving. Overnight events reviewed. No fevers No shortness of breath denies any knee pain. No back pain Antibiotics: IV Cefazolin Lines: Lines ok Past Medical History: Alcohol withdrawal Allergies/Adverse Reactions: Allergies No Known Allergies Allergy (Verified 02/16/18 17:39) Objective Vital Signs 03/01/18 15:38 03/01/18 16:40 03/01/18 19:32 Temperature 98 F Pulse Rate 82 86 65 Respiratory Rate 18 16 Blood Pressure 145/76 H Pulse Oximetry 99 03/01/18 20:00 03/02/18 00:00 03/02/18 04:00 Temperature 98.2 F 97.9 F 97.7 F Pulse Rate 95 H 66 73 Respiratory Rate 18 18 18 Blood Pressure 136/70 161/68 H 178/79 H Pulse Oximetry 99 98 97 03/02/18 08:00 03/02/18 08:19 03/02/18 12:00 Temperature 98.0 F 97.8 F Pulse Rate 69 92 H 103 H Respiratory Rate 17 17 17 Blood Pressure 170/74 H 142/62 H Pulse Oximetry 95 98 03/02/18 13:22 Temperature Pulse Rate 97 H Respiratory Rate 20 Blood Pressure Pulse Oximetry Intake & Output 03/01/18 03/02/18 03/02/18 18:59 06:59 18:59 Intake Total 1800 / 1800 1100 / 1100 400 / 400 Output Total 900 / 900 800 / 800 Balance 900 / 900 300 / 300 400 / 400 Weight 79.8 kg Intake: IV 1200 / 1200 1100 / 1100 400 / 400 1/2 Normal Saline Inj 1,000 ML 1000 / 1000 1000 / 1000 300 / 300 @ 75 mls/hr IV.CONT .[id number] [facility] Rx#:[id number] Ancef 2 GM Premix Inj 2 gm In 200 / 200 100 / 100 100 / 100 100 ml @ 200 mls/hr IV.SIG Q8H [facility] Rx#:[id number] Oral 600 / 600 Output: Urine 900 / 900 800 / 800 Other: Date of Last Bowel Movement 02/28/18 02/28/18 03/01/18 02/27/18 08:05 Blood - Peripheral Aerobic Blood Culture - Preliminary No growth in 3 days 02/27/18 08:05 Blood - Peripheral Anaerobic Blood Culture - Preliminary No growth in 3 days 02/27/18 06:15 Blood - Peripheral Aerobic Blood Culture - Preliminary No growth in 3 days 02/27/18 06:15 Blood - Peripheral Anaerobic Blood Culture - Preliminary No growth in 3 days 02/24/18 14:55 Blood - Peripheral Aerobic Blood Culture - Final Staphylococcus aureus 02/24/18 14:55 Blood - Peripheral Anaerobic Blood Culture - Final No growth in 5 days Lab - Hematology Results 03/01/18 03/02/18 06:20 06:02 WBC 6.7 6.5 RBC 2.44 L 2.52 L Hgb 8.5 L D 8.8 L Hct 25.7 L 26.4 L MCV 105.5 H 105.1 H MCH 34.8 H 35.0 H MCHC 33.0 33.3 RDW 15.1 15.1 Plt Count 259 266 MPV 8.0 8.0 Neut % (Auto) 57.5 60.7 Lymph % (Auto) 17.[address] [place] % (Auto) 13.0 H 11.4 H Eos % (Auto) 11.1 H 11.8 H Baso % (Auto) 0.8 0.5 Neut # (Auto) 3.9 3.9 Lymph # (Auto) 1.[address] # (Auto) 0.9 0.7 Eos # (Auto) 0.7 H 0.8 H Baso # (Auto) 0.1 0.0 WBC Differential . . Differential Comment Auto diff final Auto diff final Lab - Chemistry Results 03/01/18 03/02/18 03/02/18 06:20 06:02 11:39 Sodium 140 141 Potassium 4.1 4.3 Chloride 106 108 H Carbon Dioxide 24.6 25.6 Anion Gap 9 7 BUN 27 H 23 H Creatinine 1.59 H 1.52 H Estimated GFR 44 L 46 L POC Glucose 114 H Random Glucose 78 82 Calcium 8.6 8.9 Imaging: ITS Impressions Chest X-Ray 02/16/18 18:04 CONCLUSION: No evidence of acute cardiopulmonary disease. Head CT 02/16/18 18:04 CONCLUSION: 1. No acute intracranial abnormality. 2. Atrophy and chronic white matter changes. 3. Mild ventriculomegaly similar to before. . Knee X-Ray 02/16/18 18:07 CONCLUSION: No bony abnormality demonstrated. Nonspecific joint effusion. Peripheral artery disease. Thoracic Aorta CT 02/23/18 00:00 CONCLUSION: 1. Mild coarctation of the aorta as detailed above. There is mild poststenotic dilatation reaching a maximum diameter 3 cm. No dissection. 2. Pronounced carotid artery atherosclerotic calcifications partially seen. 3. Either high-grade stenosis or short segment occlusion involving the right subclavian artery. 4. Hepatic steatosis. Physical Exam: Alert, Oriented x 3 Gen confused at times. HEENT NAD Pallor No icterus Chest : Clear Heart S1S2 normal- Systolic murmur Abdomen: Soft NT Lower extremities- No swelling Right knee with no erythema, swelling noted Right ankle with deformity noted Psych cooperative. Skin with rash noted on LEs bilaterally. deferred. Assessment and Plan (1) Alcohol withdrawal Status: Acute Code(s): F10.239 - Alcohol dependence with withdrawal, unspecified (2) Bacteremia due to Staphylococcus aureus Status: Acute Code(s): R78.81 - Bacteremia - Plan MSSA bacteremia persistent probable endocarditis. PRIYANKA can be negative. Acute metabolic encephalopathy: likely sepsis and alcohol combined. Acute renal failure Recs Continue Ancef IV Follow repeat blood cultures x 2. If negative will place PICC in am and discharge to SNF with IV Ancef. Follow cultures Follow clinical course. lizeth CM, SCHOOL COUNSELLOR for Hepas and patient PICC/Midline consult placed. Post hospital infusion orders in chart. CM and Hepas aware. Will sign off please call back if any change in clinical condition or questions. (1) Alcohol withdrawal Qualifiers: Qualified Code(s): F10.230 - Alcohol dependence with withdrawal, uncomplicated
--- NOTE | 2018-03-02 14:27 | P.DCO ---
Post Hospital Infusion Therapy - Infusion Therapy Location of Infusion Therapy: [facility] Infusion Therapy Order Appointment Date: 03/02/18 - Patient Information Patient Weight: 79.8 kg - Diagnosis (1) Alcohol withdrawal Code(s): F10.239 - Alcohol dependence with withdrawal, unspecified (2) Bacteremia due to Staphylococcus aureus Code(s): R78.81 - Bacteremia (3) Methicillin susceptible Staphylococcus aureus septicemia Code(s): A41.01 - Sepsis due to Methicillin susceptible Staphylococcus aureus (4) Septic arthritis of knee, bilateral Code(s): M00.9 - Pyogenic arthritis, unspecified - Administer Medication Cefazolin Dose: 2 grams IV Directions: q 8 hours Start Treatment: 03/02/18 Stop Treatment: 03/27/18 - Additional Information Venous Access: PICC Line Additional Instructions: [x] Peripheral flush and dressing changes per protocol [x] Implanted port and central print line inspector: * Implanted port: 10 ml Normal Saline followed by 5 ml Heparin 100 units/ml Heparin flush after each use and monthly to maintain. [] May leave port accessed during therapy. [] May leave peripheral site accessed for duration of therapy. [x] If patient has SOB or respiratory distress, check oxygen saturation. If less than 90% or clinical signs of respiratory distress, administer oxygen at 2 L/min. via nasal cannula and notify physician. [x] Anaphylaxis/Reaction orders: * Stop infusion. * Keep IV line open with saline flush. * Notify physician. * Monitor vital signs every 15 minutes until symptoms resolve. * Check Oxygen saturation; Oxygen at 2 L/min. via nasal cannula if less than 90% or clinical signs of respiratory distress. * Administer diphenhydramine (Benadryl) 25 mg IV STAT, (unless patient has received as pre-med). May repeat once, if necessary. * Solu-Cortef 250 mg IVP over 30-60 seconds, use 100 mg vials for each dissolution. * Epinephrine (1mg/1 ml) 0.3 mg subcutaneously or IVP now with any signs of respiratory distress. * Check with physician for new additional pre-med orders if patient is re- challenged or re-treated. [x] May remove PICC line when treatment complete, after confirming with Physician. [x] If the patient is admitted to the hospital, the ED, or transferred via [facility] , complete transfer form including medication reconciliation order sheet. Weekly Labs: CBC w/diff, Creatinine, CRP, LFTs (Hepatic Function Test) Case Management Consult: Yes Additional Information: Chest X-Ray 02/16/18 18:04 CONCLUSION: No evidence of acute cardiopulmonary disease. Head CT 02/16/18 18:04 CONCLUSION: 1. No acute intracranial abnormality. 2. Atrophy and chronic white matter changes. 3. Mild ventriculomegaly similar to before. . Knee X-Ray 02/16/18 18:07 CONCLUSION: No bony abnormality demonstrated. Nonspecific joint effusion. Peripheral artery disease. Thoracic Aorta CT 02/23/18 00:00 CONCLUSION: 1. Mild coarctation of the aorta as detailed above. There is mild poststenotic dilatation reaching a maximum diameter 3 cm. No dissection. 2. Pronounced carotid artery atherosclerotic calcifications partially seen. 3. Either high-grade stenosis or short segment occlusion involving the right subclavian artery. 4. Hepatic steatosis. - Patient Information Allergies No Known Allergies Allergy (Verified 02/16/18 17:39) (1) Alcohol withdrawal Qualifiers: Complication of substance-induced condition: uncomplicated Qualified Code(s) : F10.230 - Alcohol dependence with withdrawal, uncomplicated
--- NOTE | 2018-03-02 14:46 | P.PNPAL ---
Reason for Visit Reason for visit: a. To assist with evaluation and management of symptoms including: generalized weakness, pain b. To assist medical decision maker(s) with: better understanding of current medical conditions; weighing benefits/burdens of medical treatment options; making medical treatment decisions. Subjective Subjective/Interval History: Follow-up medically necessary for symptom management. Patient is sitting up in a recliner chair in his room. Alert, oriented to self, place and situation. Patient currently denies pain. Patient continuously scratching his upper extremities. States he feels itchy. Patient forgets to ask for prn Benadryl. Notified charge nurse and another nurse that patient needs Benadryl. Last dose given on 02/27/18. Skin to both arms slightly reddened from scratching. Rash improving. Patient denies pain at this time. Patient has Elizabeth 5/325 every 6 hours prn pain. Patient has not required a dose since admission. Physical therapy following with patient, recommending PT OT at rehab. Infectious disease signed off, PICC/midline access order placed as well as post hospital infusion orders. Case management following and assisting with discharge plan. Brief telephone conversation with patient`s daughter Arabella who states that patient was more coherent over the weekend. Patient`s daughter wanted to know if patient's last collected blood cultures were growing any bacteria. Blood cultures collected on 02/27/18 showing no growth in the past 72 hours. Case discussed with case management. Family/Friend Interactions: Brief telephone conversation with patient's daughter Arabella. See interval note. Advance Directives Living Will: Never completed Health Care Surrogate: Copy in medical record Durable Power of Requisition Approver: Never completed Advance Directives Date on File: 02/27/18 (completed today) Health Care Surrogate Name and Number: HCS: ParisDaxa wheeler alt HCS: Daxa Nelson (brothers) Objective Vital Signs: Vital Signs 03/01/18 15:38 03/01/18 16:40 03/01/18 19:32 Temperature 98 F Pulse Rate 82 86 65 Respiratory Rate 18 16 Blood Pressure 145/76 H Pulse Oximetry 99 03/01/18 20:00 03/02/18 00:00 03/02/18 04:00 Temperature 98.2 F 97.9 F 97.7 F Pulse Rate 95 H 66 73 Respiratory Rate 18 18 18 Blood Pressure 136/70 161/68 H 178/79 H Pulse Oximetry 99 98 97 03/02/18 08:00 03/02/18 08:19 03/02/18 12:00 Temperature 98.0 F 97.8 F Pulse Rate 69 92 H 103 H Respiratory Rate 17 17 17 Blood Pressure 170/74 H 142/62 H Pulse Oximetry 95 98 03/02/18 13:22 Temperature Pulse Rate 97 H Respiratory Rate 20 Blood Pressure Pulse Oximetry Intake & Output 03/01/18 03/02/18 03/02/18 18:59 06:59 18:59 Intake Total 1800 / 1800 1100 / 1100 400 / 400 Output Total 900 / 900 800 / 800 Balance 900 / 900 300 / 300 400 / 400 Weight 79.8 kg 79.8 kg Intake: IV 1200 / 1200 1100 / 1100 400 / 400 1/2 Normal Saline Inj 1,000 ML 1000 / 1000 1000 / 1000 300 / 300 @ 75 mls/hr IV.CONT .[id number] [facility] Rx#:[id number] Ancef 2 GM Premix Inj 2 gm In 200 / 200 100 / 100 100 / 100 100 ml @ 200 mls/hr IV.SIG Q8H [facility] Rx#:[id number] Oral 600 / 600 Output: Urine 900 / 900 800 / 800 Other: Date of Last Bowel Movement 02/28/18 02/28/18 03/01/18 Physical Exam: CONSTITUTIONAL/GENERAL: This is an adequately nourished patient, in no apparent distress. TUBES/LINES/DRAINS: SKIN: Dry, itchy scaly rash to bilateral upper extremities. Ecchymoses on upper extremities. No wounds seen anteriorly. Skin temperature appropriate. Not diaphoretic. HEAD: Atraumatic. Normocephalic. EYES: Pupils equal and round and reactive. Extraocular motions intact. No scleral icterus. No injection or drainage. Fundi not examined. ENT: Hearing grossly normal. Nose without bleeding or purulent drainage. NECK: Trachea midline. Supple, nontender. CARDIOVASCULAR: Regular rate and rhythm without murmurs, gallops, or rubs. No JVD. Peripheral pulses symmetric. RESPIRATORY/CHEST: Symmetric, unlabored respirations. Clear to auscultation. Breath sounds equal bilaterally. No wheezes, rales, or rhonchi. GASTROINTESTINAL: Abdomen soft, non-tender, nondistended. No guarding. Bowel sounds present. GENITOURINARY: Without palpable bladder distension. MUSCULOSKELETAL: Extremities without clubbing, cyanosis, or edema. No joint tenderness or effusion noted. No calf tenderness. No mottling or clubbing. NEUROLOGICAL: Awake and alert. Motor and sensory grossly within normal limits. Follows commands. Moves all extremities. PSYCHIATRIC: No obvious anxiety/depression. no apparent hallucinations or other psychotic thought process. Diagnostic Tests Laboratory: Laboratory Results - last 72 hr 02/28/18 02/28/18 03/01/18 03:44 03:44 06:20 WBC 7.4 6.7 RBC 2.98 L 2.44 L Hgb 10.5 L 8.5 L D Hct 31.5 L 25.7 L MCV 105.7 H 105.5 H MCH 35.1 H 34.8 H MCHC 33.2 33.0 RDW 15.6 15.1 Plt Count 300 259 MPV 7.8 8.0 Neut % (Auto) 58.4 57.5 Lymph % (Auto) 19.8 17.6 [place] % (Auto) 11.6 H 13.0 H Eos % (Auto) 9.6 H 11.1 H Baso % (Auto) 0.6 0.8 Neut # (Auto) 4.3 3.9 Lymph # (Auto) 1.5 1.2 [place] # (Auto) 0.9 0.9 Eos # (Auto) 0.7 H 0.7 H Baso # (Auto) 0.0 0.1 WBC Differential . . Differential Comment Auto diff final Auto diff final Sodium 141 Potassium 4.1 Chloride 108 H Carbon Dioxide 25.1 Anion Gap 8 BUN 24 H Creatinine 1.68 H Estimated GFR 41 L POC Glucose Random Glucose 85 Calcium 9.0 Random Vancomycin 19.6 03/01/18 03/02/18 03/02/18 06:20 06:02 06:02 WBC 6.5 RBC 2.52 L Hgb 8.8 L Hct 26.4 L MCV 105.1 H MCH 35.0 H MCHC 33.3 RDW 15.1 Plt Count 266 MPV 8.0 Neut % (Auto) 60.7 Lymph % (Auto) 15.6 [place] % (Auto) 11.4 H Eos % (Auto) 11.8 H Baso % (Auto) 0.5 Neut # (Auto) 3.9 Lymph # (Auto) 1.0 [place] # (Auto) 0.7 Eos # (Auto) 0.8 H Baso # (Auto) 0.0 WBC Differential . Differential Comment Auto diff final Sodium 140 141 Potassium 4.1 4.3 Chloride 106 108 H Carbon Dioxide 24.6 25.6 Anion Gap 9 7 BUN 27 H 23 H Creatinine 1.59 H 1.52 H Estimated GFR 44 L 46 L POC Glucose Random Glucose 78 82 Calcium 8.6 8.9 Random Vancomycin 03/02/18 11:39 WBC RBC Hgb Hct MCV MCH MCHC RDW Plt Count MPV Neut % (Auto) Lymph % (Auto) [place] % (Auto) Eos % (Auto) Baso % (Auto) Neut # (Auto) Lymph # (Auto) [place] # (Auto) Eos # (Auto) Baso # (Auto) WBC Differential Differential Comment Sodium Potassium Chloride Carbon Dioxide Anion Gap BUN Creatinine Estimated GFR POC Glucose 114 H Random Glucose Calcium Random Vancomycin Result Diagrams: 03/02/18 06:02 03/02/18 06:02 Microbiology: Microbiology 02/27/18 08:05 Aerobic Blood Culture - Preliminary Blood - Peripheral No growth in 3 days Anaerobic Blood Culture - Preliminary No growth in 3 days 02/27/18 06:15 Aerobic Blood Culture - Preliminary Blood - Peripheral No growth in 3 days Anaerobic Blood Culture - Preliminary No growth in 3 days 02/24/18 14:55 Aerobic Blood Culture - Final Blood - Peripheral Staphylococcus aureus Anaerobic Blood Culture - Final No growth in 5 days Imaging: Chest X-Ray 02/16/18 18:04 CONCLUSION: No evidence of acute cardiopulmonary disease. Head CT 02/16/18 18:04 CONCLUSION: 1. No acute intracranial abnormality. 2. Atrophy and chronic white matter changes. 3. Mild ventriculomegaly similar to before. . Knee X-Ray 02/16/18 18:07 CONCLUSION: No bony abnormality demonstrated. Nonspecific joint effusion. Peripheral artery disease. Thoracic Aorta CT 02/23/18 00:00 CONCLUSION: 1. Mild coarctation of the aorta as detailed above. There is mild poststenotic dilatation reaching a maximum diameter 3 cm. No dissection. 2. Pronounced carotid artery atherosclerotic calcifications partially seen. 3. Either high-grade stenosis or short segment occlusion involving the right subclavian artery. 4. Hepatic steatosis. Procedures: 02/25/18-transesophageal echocardiogram Assessment and Plan - Disease Oriented Problem List (1) Bacteremia due to Staphylococcus aureus (2) Falls frequently (3) Bacteremia (4) ETOH abuse (5) Tobacco abuse - Symptom Scale (1) Pain 0-10 Scale: 1 Comment: Hx of injury to right foot. Patient came in complaining of pain to his bilateral knees and has had multiple fals at home. (2) Generalized weakness 0-10 Scale: Unable to quantify (Patient has persistent bacteremia. Hx of ETOH abuse and has had multiple falls at home.) Pertinent Non-Medical Issues: Psychosocial: Patient is originally from [place], [place]. He moved to [place] approximately 40 years ago. Patient was once and is . He has 2 adult children son-Adelso Mittal and daughter Arabella Ames who live locally. Patient used to work in construction doing plastering. He stopped working after he injured his right foot. Currently he resides in a home with 3 roommates. Spiritual: Legal: Patient completed and signed healthcare surrogate form and [facility] DNR today-02/27/18 Ethical issues impacting care: None identified at this time Important Contacts: HCS:-Brother- Daxa Ramos alt HCS:Brother- Daxa Nelson Daughter-Arabella Ames [phone] Son-Adelso Mittal [phone] Brother-Lionel Mittal [phone] Sheiat-jx-xmd-Aggie Mauricio [phone] Friend-Meaghan Martinez [phone] Prognosis: Mr. Mittal is a 67-year-old male with a medical history of alcohol abuse and hypertension. Patient presented to the emergency room on 02/16/18 with complaints of multiple falls at home, pain to his right knee and reports of seizures at home. Clinical course complicated with persistent bacteremia despite treatment with antibiotics and generalized weakness. If patient responds to antibiotic therapy, and gets rehabilitation and changes his life style- he most likely will live a normal life and on the other hand if the above interventions and life style changes do not occur then patient will continue to have complications , deteriorate and decline. Code Status: No Code DNR Plan: PLAN: Legal decision maker: Patient is alert , oriented to self, place and situation. Currently able to participate in medical decision making. In the event that patient is incapacitated, he has designated his brother Daxa Ramos as his health care surrogate and his other brother Omar Mittal as his alternate health care surrogate. Recommending shared decision making since patient has had reported episodes of confusion during this hospitalization. Goals: Aggressive short of no code. Plan is for patient to be discharged to a residential facility with post hospital infusion orders. Patient agreeable to plan. CODE STATUS: No code DNR/DNI-[facility] DNR signed. Original placed on the chart SYMPTOMS: * Confusion: Patient has history of EtOH abuse. Head CT on 02/16/18 revealed atrophy and chronic low attenuation in the periventricular white matter and mild ventriculomegaly. Currently oriented to self, place and situation. Resolved. * Pain:Hx of injury to right foot. Patient came in complaining of pain to his bilateral knees and has had multiple falls at home. Currently denies pain. Elizabeth 5/325 prn available- Patient has not required a dose since admission. * Generalized weakness:Patient has persistent bacteremia. Hx of ETOH abuse and has had multiple falls at home. Physical therapy consulted, recommending PT at rehab. Palliative care will continue to follow the patient during hospital course as condition evolves, to assist patient/decision-maker with understanding of their medical conditions, weighing benefits/burdens of treatment options, for clarification of goals of treatment. Additionally will assist with any symptoms of palliative concern Attestation Attestation: To help prompt me to consider important information that might be impacting today's encounter and assessment, information from prior notes written by myself or my colleagues may have been "brought forward" into today's note. My signature on this note, however, is an attestation that I personally performed the exam, history, and/or decision-making noted today, and, unless otherwise indicated, the interactions with patient, family, and staff as well as the review of records all occurred today. I also attest that the listed assessment and stated plan reflect my best clinical judgment today based on the combination of historical information, prior notes, and today's exam/ interactions. When time spent is documented, it refers only to time spent today by the signer, or if indicated, combined time spent today by collaborating physician/nurse practitioner.
[2018-03-02] MEDS: Metoprolol Tartrate 50 MG Tablet PO SCH (21:14)
[2018-03-03] MEDS: Heparin - SQ 10,000 UNITS/ML Vial SQ SCH ×2 (05:58→13:23)
[2018-03-03 06:18] LABS: Baso # (Auto) 0.1 th/mm3 (0.0-0.2); Baso % (Auto) 0.6 % (0.0-2.0); Eos # (Auto) 0.8 th/mm3 (0.0-0.4); Eos % (Auto) 8.6 % (0.0-4.0); Hematocrit 25.1 % (39.0-51.0); Hemoglobin 8.6 gm/dL (13.0-17.0); Lymph # (Auto) 1.3 th/mm3 (1.0-4.8); Lymph % (Auto) 13.6 % (9.0-44.0); Mean Corpuscular HGB Conc 34.3 % (32.0-36.0); Mean Corpuscular Hemoglobin 35.2 pg (27.0-34.0); Mean Corpuscular Volume 102.6 fL (80.0-100.0); Mean Platelet Volume 7.9 fL (7.0-11.0); Mono # (Auto) 1.3 th/mm3 (0.0-0.9); Mono % (Auto) 13.6 % (0.0-8.0); Neut # (Auto) 6.1 th/mm3 (1.8-7.7); Neut % (Auto) 63.6 % (16.0-70.0); Platelet Count 285 th/mm3 (150-450); Red Blood Count 2.44 mil/mm3 (4.50-5.90); Red Cell Distribution Width 15.5 % (11.6-17.2); White Blood Count 9.6 th/mm3 (4.0-11.0)
[2018-03-03 06:38] LABS: Calcium 9.4 mg/dL (8.5-10.1); Carbon Dioxide 26.7 meq/L (21.0-32.0); Potassium 4.8 meq/L (3.5-5.1)
--- NOTE | 2018-03-03 08:57 | P.DS ---
Date of admission: 02/18/18 18:01 Primary care physician: No Primary Care Physician Attending physician on discharge: Madan Castillo Anticipated date of discharge: 03/03/18 Brief History from admission: This is a 67-year-old male patient with a known medical history of alcohol abuse who presented to the ED with complaints of multiple falls at home, right knee pain, and reports of seizures at home. Patient is examined at bedside, sleeping awakens to voice. Alert and oriented x 3 although a relatively poor historian. Patient does state that he has been falling at home for the past couple months and has just recently reports of falling out of his truck and hurting his right knee. He states that he uses a walker at home although states it does not fit him well and he does not use it. Patient states that prior to his falls he feels like his legs are giving out with occasional dizziness prior to his falls. He admits to drinking up to a 12-pack per day of beer as well as smoking 2 ppd cigarettes since his teen years. Patient does admit to issues in the past, states that his last seizure was last month. He does not take any medications at home for his seizures. States that he usually has a seizure if he stops drinking or does not drink enough. Denies any recent fevers, chills, cough, shortness of breath, vomiting, or changes to his bowels. Patient update on day of discharge: Follow-up sepsis, bacteremia with high-grade MSSA, EtOH, and hypertension. Patient seen and examined laying in bed denies any discomfort. Patient states that he is ready to go home. Patient denies any fever or chills, denies any pain, chest pain, shortness of breath. Denies any headache or dizziness. Denies any nausea, vomiting, diarrhea or constipation. Patient stated sleep well, and was eating well. Discussed with Dr. Leigh/NICOL plan to discharge to SNF on IV antibiotic. DS: Diagnosis - Discharge Diagnosis (1) Alcohol withdrawal Status: Acute (2) Falls frequently Status: Acute (3) Bacteremia Status: Acute (4) Bacteremia due to Staphylococcus aureus Status: Acute (5) ETOH abuse Status: Acute (6) Tobacco abuse Status: Acute (7) Confusion Status: Acute (8) MSSA (methicillin susceptible Staphylococcus aureus) Status: Acute DS: Medications - Discharge Medications Prescriptions: cefazolin 2 g IV Q8H 28 Days each hydrocodone-acetaminophen [[place]] 1 tab PO Q8H PRN 3 Days #9 tab PRN Reason: pain ipratropium-albuterol 1 amp NEB Q6HR WHILE AWAKE NEB 10 Days #40 ml lisinopril 10 mg PO DAILY 30 Days #30 tab magnesium oxide 400 mg PO BID 30 Days #60 tab metoprolol tartrate 50 mg PO BID 30 Days #60 tab nicotine 1 patch TRANSDERMAL DAILY 5 Days #5 ea sennosides-docusate sodium [Senna Plus] 1 tab PO BID 30 Days #60 tab thiamine HCl (vitamin B1) 100 mg PO DAILY 30 Days #30 tab DS: Summary Hospital Course: This is a 67-year-old male patient with a known medical history of alcohol abuse , hypertension, tobacco abuse, EtOH and CKD who presented to the ED with complaints of multiple falls at home, right knee pain, and reports of seizures at home initially admitted at [facility]. Patient was transferred to the main hospital, and was treated for Sepsis, bacteremia high- grade with MSSA with IV antibiotic with infectious disease. Patient will continue IV antibiotic for 28 days per ID recommendation. - Time Spent with Patient Total time spent providing and/or coordinating discharge services: Greater than 30 minutes - Quality: VTE Deep Vein Thrombosis/Pulmonary Embolism Present on Admission: No Exam Vital signs: Vital Signs 03/02/18 12:00 03/02/18 13:22 03/02/18 16:00 Temperature 97.8 F 97.5 F L Pulse Rate 103 H 97 H 90 Respiratory Rate 17 20 17 Blood Pressure 142/62 H 129/60 Pulse Oximetry 98 97 03/02/18 20:00 03/02/18 20:35 03/03/18 00:00 Temperature 98 F 97.6 F Pulse Rate 95 H 85 103 H Respiratory Rate 18 18 18 Blood Pressure 98/57 L 139/76 Pulse Oximetry 95 94 L 03/03/18 04:00 03/03/18 07:29 Temperature 97.9 F Pulse Rate 103 H 106 H Respiratory Rate 18 16 Blood Pressure 130/82 Pulse Oximetry 94 L Intake & Output 03/02/18 03/03/18 03/03/18 18:59 06:59 18:59 Intake Total 2300 / 2300 1200 / 1200 Output Total 900 / 900 Balance 1400 / 1400 1200 / 1200 Weight 79.8 kg Intake: IV 1100 / 1100 1200 / 1200 2 Normal Saline Inj 1,000 ML 1000 / 1000 1000 / 1000 @ 75 mls/hr IV.CONT .[id number] MARK Rx#:[id number] Ancef 2 GM Premix Inj 2 gm In 100 / 100 200 / 200 100 ml @ 200 mls/hr IV.SIG Q8H MARK Rx#:[id number] Oral 1200 / 1200 Output: Urine 900 / 900 Other: # Voids 3 Date of Last Bowel Movement 03/01/18 03/03/18 # Bowel Movements 1 1 Narrative: GENERAL: Well-developed, well-nourished, alert and oriented x2 in no apparent distress SKIN: Warm and dry. Severe dry skin HEAD: Atraumatic. Normocephalic. EYES: Pupils equal and round. No scleral icterus. No injection or drainage. ENT: No nasal bleeding or discharge. Mucous membranes pink and moist. NECK: Trachea midline. No JVD. CARDIOVASCULAR: Regular rate and rhythm. RESPIRATORY: No accessory muscle use. Clear to auscultation. Breath sounds equal bilaterally. Positive for coarse cough GASTROINTESTINAL: Abdomen obese, soft, non-tender, nondistended. Hepatic and splenic margins not palpable. MUSCULOSKELETAL: Extremities without clubbing, cyanosis, or edema. No obvious deformities. NEUROLOGICAL: Awake and alert. No obvious cranial nerve deficits. Motor grossly within normal limits. Generalized weakness moving all 4 extremities, normal speech. PSYCHIATRIC: Appropriate mood and affect; insight and judgment unreliable with slight confusion Results Procedures completed during hospitalization: ECHOCARDIOGRAM CONCLUSIONS Normal left ventricular size. Mild concentric left ventricular hypertrophy. The left ventricular systolic function is normal with an estimated ejection fraction in the range of 55-60%. Trace mitral valve regurgitation. There is trace tricuspid valve regurgitation. The estimated pulmonary arterial pressure is 44 mmHg. Labs on day of discharge: Labs from last 24 hours 03/03/18 03/03/18 03/02/18 06:00 06:00 11:39 WBC 9.6 RBC 2.44 L Hgb 8.6 L Hct 25.1 L MCV 102.6 H MCH 35.2 H MCHC 34.3 RDW 15.5 Plt Count 285 MPV 7.9 Neut % (Auto) 63.6 Lymph % (Auto) 13.6 [place] % (Auto) 13.6 H Eos % (Auto) 8.6 H Baso % (Auto) 0.6 Neut # (Auto) 6.1 Lymph # (Auto) 1.3 [place] # (Auto) 1.3 H Eos # (Auto) 0.8 H Baso # (Auto) 0.1 WBC Differential . Differential Comment Auto diff final Sodium 138 Potassium 4.8 Chloride 104 Carbon Dioxide 26.7 Anion Gap 7 BUN 26 H Creatinine 1.75 H Estimated GFR 39 L POC Glucose 114 H Random Glucose 91 Calcium 9.4 Preliminary micro results at discharge 02/27/18 08:05 Aerobic Blood Culture - Preliminary Blood - Peripheral No growth in 3 days Anaerobic Blood Culture - Preliminary No growth in 3 days 02/27/18 06:15 Aerobic Blood Culture - Preliminary Blood - Peripheral No growth in 3 days Anaerobic Blood Culture - Preliminary No growth in 3 days - Impressions ITS Impressions Chest X-Ray 02/16/18 18:04 CONCLUSION: No evidence of acute cardiopulmonary disease. Head CT 02/16/18 18:04 CONCLUSION: 1. No acute intracranial abnormality. 2. Atrophy and chronic white matter changes. 3. Mild ventriculomegaly similar to before. . Knee X-Ray 02/16/18 18:07 CONCLUSION: No bony abnormality demonstrated. Nonspecific joint effusion. Peripheral artery disease. Thoracic Aorta CT 02/23/18 00:00 CONCLUSION: 1. Mild coarctation of the aorta as detailed above. There is mild poststenotic dilatation reaching a maximum diameter 3 cm. No dissection. 2. Pronounced carotid artery atherosclerotic calcifications partially seen. 3. Either high-grade stenosis or short segment occlusion involving the right subclavian artery. 4. Hepatic steatosis. Discharge Plan - Discharge Disposition Patient Disposition: Discharge to SNF - Discharge Condition Condition: Stable - Discharge Order Discharge Orders: Discharge Order (Routine); Ordered 03/03/18 Ordered By: Latha Hsu - Discharge Details Anticipated Discharge Date: 03/03/18 Discharge Comment: DC to SNF - Physicians Team Primary Care Provider: Primary Care Emmett,Maxine Attending Provider: Madan Castillo Other Providers: Josesito Chicas MD ; Sandeep Guardado MD ; Gem Polanco MD ; Madison Tony,[place] ; [facility] ; Wallace Rodriguez DO ; Saul Ennis MD
[2018-03-03] MEDS: ceFAZolin 2 GM Premix Inj 2 GM/100 ML BAG IV.SIG SCH ×2 (09:28→15:01)
[2018-03-03] MEDS: Magnesium Oxide 400 MG Tablet PO SCH (09:30)
[2018-03-03] MEDS: Metoprolol Tartrate 50 MG Tablet PO SCH (09:30)
[2018-03-03] MEDS: Lisinopril 10 MG Tablet PO SCH (09:30)
[2018-03-03] MEDS: Senna/Docusate Sodium 8.6/50 MG Tablet PO SCH (09:30)
[2018-03-03] MEDS: Sodium Chloride 0.45 % Inj 1,000 ML IV.CONT SCH (09:30)
[2018-03-03] MEDS ORDERED: Sodium Chloride 0.9% 2 ML Flush PRN IV.FLUSH (11:54)
--- NOTE | 2018-03-03 14:10 | P.PNPAL ---
Reason for Visit Reason for visit: a. To assist with evaluation and management of symptoms including: generalized weakness, pain, pruritic rash b. To assist medical decision maker(s) with: better understanding of current medical conditions; weighing benefits/burdens of medical treatment options; making medical treatment decisions. Subjective Subjective/Interval History: Follow-up medically necessary for symptom management. Patient seen and examined in his room. Patient currently sitting up in his recliner, receiving Albuterol Duoneb nebulizer. Patient endorsing pruritus to his bilateral lower extremities and upper extremities where he has healing rash. Patient has scratch regan to bilateral lower extremities with superficial bleeding. Patient states that he forgets that he can request Benadryl prn for pruritus. He states that he feels better whenever he takes Benadryl. Patient also has Eucerin cream. Notified patient `s bedside RN about patient`s request for Benadryl and pruritic rash. Denies pain at this time. No complaints of discomfort to his knees. Patient has Huddleston 5/325 q 6 hrs prn for pain- has not needed a dose during this hospitalization. Physical therapy following with patient. Rehabilitation PT recommended. Case discussed with bedside RN Shadi Ross Janet (CEMENTER MACHINE APPLICATOR) and case management coordinator Yeimy. Empasized importance of discharging patient with his State of [place] DNR yellow form in his chart whenever he is discharged to a SNF to bedside RN. Advance Directives Living Will: Never completed Health Care Surrogate: Copy in medical record Durable Power of Electronic Security Technician: Never completed Advance Directives Date on File: 02/27/18 (completed today) Health Care Surrogate Name and Number: HCS: Daxa Ramos alt HCS: Daxa Nelson (brothers) Objective Vital Signs: Vital Signs 03/02/18 16:00 03/02/18 20:00 03/02/18 20:35 Temperature 97.5 F L 98 F Pulse Rate 90 95 H 85 Respiratory Rate 17 18 18 Blood Pressure 129/60 98/57 L Pulse Oximetry 97 95 03/03/18 00:00 03/03/18 04:00 03/03/18 07:29 Temperature 97.6 F 97.9 F Pulse Rate 103 H 103 H 106 H Respiratory Rate 18 18 16 Blood Pressure 139/76 130/82 Pulse Oximetry 94 L 94 L 03/03/18 08:00 03/03/18 12:00 03/03/18 13:04 Temperature 97.7 F 97.3 F L Pulse Rate 112 H 74 84 Respiratory Rate 20 20 16 Blood Pressure 118/93 H 184/89 H Pulse Oximetry 96 98 Intake & Output 03/02/18 03/03/18 03/03/18 18:59 06:59 18:59 Intake Total 2300 / 2300 1200 / 1200 100 / 100 Output Total 900 / 900 200 / 200 Balance 1400 / 1400 1200 / 1200 -100 / -100 Weight 79.8 kg Intake: IV 1100 / 1100 1200 / 1200 100 / 100 1/2 Normal Saline Inj 1,000 ML 1000 / 1000 1000 / 1000 @ 75 mls/hr IV.CONT .[id number] MARK Rx#:[id number] Ancef 2 GM Premix Inj 2 gm In 100 / 100 200 / 200 100 / 100 100 ml @ 200 mls/hr IV.SIG Q8H MARK Rx#:[id number] Oral 1200 / 1200 Output: Urine 900 / 900 200 / 200 Other: # Voids 3 Date of Last Bowel Movement 03/01/18 03/03/18 03/02/18 # Bowel Movements 1 1 Physical Exam: CONSTITUTIONAL/GENERAL: This is an adequately nourished patient, in no apparent distress. TUBES/LINES/DRAINS:PIV SKIN: Dry, itchy scaly rash to bilateral upper extremities and bilateral lower extremities. Superficial bleeding to scratch regan on bilateral lower extremities. Skin temperature appropriate. Not diaphoretic. EYES: Pupils equal and round and reactive. Extraocular motions intact. No scleral icterus. No injection or drainage. Fundi not examined. ENT: Hearing grossly normal. Nose nasal bleeding or drainage. NECK: Trachea midline. Supple, nontender. CARDIOVASCULAR: Regular rate and rhythm without murmurs, gallops, or rubs. No JVD. Peripheral pulses symmetric. RESPIRATORY/CHEST: Symmetric, unlabored respirations. Clear to auscultation. Breath sounds equal bilaterally. No wheezes, rales, or rhonchi. GASTROINTESTINAL: Abdomen soft, non-tender, nondistended. No guarding. Bowel sounds present. MUSCULOSKELETAL: Extremities without clubbing, cyanosis, or edema. No joint tenderness or effusion noted. NEUROLOGICAL: Awake and alert, orinted to self, place and situation. Follows simple commands. Moves all extremities. PSYCHIATRIC: No obvious anxiety/depression. no apparent hallucinations or other psychotic thought process. Diagnostic Tests Laboratory: Laboratory Results - last 72 hr 03/01/18 03/01/18 03/02/18 06:20 06:20 06:02 WBC 6.7 6.5 RBC 2.44 L 2.52 L Hgb 8.5 L D 8.8 L Hct 25.7 L 26.4 L MCV 105.5 H 105.1 H MCH 34.8 H 35.0 H MCHC 33.0 33.3 RDW 15.1 15.1 Plt Count 259 266 MPV 8.0 8.0 Neut % (Auto) 57.5 60.7 Lymph % (Auto) 17.6 15.6 [place] % (Auto) 13.0 H 11.4 H Eos % (Auto) 11.1 H 11.8 H Baso % (Auto) 0.8 0.5 Neut # (Auto) 3.9 3.9 Lymph # (Auto) 1.2 1.0 [place] # (Auto) 0.9 0.7 Eos # (Auto) 0.7 H 0.8 H Baso # (Auto) 0.1 0.0 WBC Differential . . Differential Comment Auto diff final Auto diff final Sodium 140 Potassium 4.1 Chloride 106 Carbon Dioxide 24.6 Anion Gap 9 BUN 27 H Creatinine 1.59 H Estimated GFR 44 L POC Glucose Random Glucose 78 Calcium 8.6 03/02/18 03/02/18 03/03/18 06:02 11:39 06:00 WBC 9.6 RBC 2.44 L Hgb 8.6 L Hct 25.1 L MCV 102.6 H MCH 35.2 H MCHC 34.3 RDW 15.5 Plt Count 285 MPV 7.9 Neut % (Auto) 63.6 Lymph % (Auto) 13.6 [place] % (Auto) 13.6 H Eos % (Auto) 8.6 H Baso % (Auto) 0.6 Neut # (Auto) 6.1 Lymph # (Auto) 1.3 [place] # (Auto) 1.3 H Eos # (Auto) 0.8 H Baso # (Auto) 0.1 WBC Differential . Differential Comment Auto diff final Sodium 141 Potassium 4.3 Chloride 108 H Carbon Dioxide 25.6 Anion Gap 7 BUN 23 H Creatinine 1.52 H Estimated GFR 46 L POC Glucose 114 H Random Glucose 82 Calcium 8.9 03/03/18 06:00 WBC RBC Hgb Hct MCV MCH MCHC RDW Plt Count MPV Neut % (Auto) Lymph % (Auto) [place] % (Auto) Eos % (Auto) Baso % (Auto) Neut # (Auto) Lymph # (Auto) [place] # (Auto) Eos # (Auto) Baso # (Auto) WBC Differential Differential Comment Sodium 138 Potassium 4.8 Chloride 104 Carbon Dioxide 26.7 Anion Gap 7 BUN 26 H Creatinine 1.75 H Estimated GFR 39 L POC Glucose Random Glucose 91 Calcium 9.4 Result Diagrams: 03/03/18 06:00 03/03/18 06:00 Microbiology: Microbiology 02/27/18 08:05 Aerobic Blood Culture - Preliminary Blood - Peripheral No growth in 4 days Anaerobic Blood Culture - Preliminary No growth in 4 days 02/27/18 06:15 Aerobic Blood Culture - Preliminary Blood - Peripheral No growth in 4 days Anaerobic Blood Culture - Preliminary No growth in 4 days 02/24/18 14:55 Aerobic Blood Culture - Final Blood - Peripheral Staphylococcus aureus Anaerobic Blood Culture - Final No growth in 5 days Imaging: Chest X-Ray 02/16/18 18:04 CONCLUSION: No evidence of acute cardiopulmonary disease. Head CT 02/16/18 18:04 CONCLUSION: 1. No acute intracranial abnormality. 2. Atrophy and chronic white matter changes. 3. Mild ventriculomegaly similar to before. . Knee X-Ray 02/16/18 18:07 CONCLUSION: No bony abnormality demonstrated. Nonspecific joint effusion. Peripheral artery disease. Thoracic Aorta CT 02/23/18 00:00 CONCLUSION: 1. Mild coarctation of the aorta as detailed above. There is mild poststenotic dilatation reaching a maximum diameter 3 cm. No dissection. 2. Pronounced carotid artery atherosclerotic calcifications partially seen. 3. Either high-grade stenosis or short segment occlusion involving the right subclavian artery. 4. Hepatic steatosis. Procedures: 02/25/18-transesophageal echocardiogram Assessment and Plan - Disease Oriented Problem List (1) Bacteremia due to Staphylococcus aureus (2) Falls frequently (3) Bacteremia (4) ETOH abuse (5) Tobacco abuse - Symptom Scale (1) Pain Comment: Hx of injury to right foot. Patient came in complaining of pain to his bilateral knees and has had multiple fals at home. (3) Pruritic rash 0-10 Scale: Unable to quantify Comment: Patient came in with healing macular pruritic rash to bilateral lower and upper extremities. on admission it was difficult to discern whether it was scabies and due to patient`s living conditions x1 time dose Permithrin was administered. Pertinent Non-Medical Issues: Psychosocial: Patient is originally from [place], [place]. He moved to [place] approximately 40 years ago. Patient was once and is . He has 2 adult children son-Adelso Mittal and daughter Arabella Ames who live locally. Patient used to work in construction doing plastering. He stopped working after he injured his right foot. Currently he resides in a home with 3 roommates. Spiritual: Legal: Patient completed and signed healthcare surrogate form and [facility] DNR today-02/27/18 Ethical issues impacting care: None identified at this time Important Contacts: HCS:-Brother- Daxa Ramos stuart HCS:Brother- Daxa Nelson Daughter-Arabella Ames [phone] Son-Adelso Mittal [phone] Brother-Lionel Mittal [phone] Eavntr-uw-zsb-Aggie Mauricio [phone] Friend-Meaghan Martinez [phone] Prognosis: Mr. Mittal is a 67-year-old male with a medical history of alcohol abuse and hypertension. Patient presented to the emergency room on 02/16/18 with complaints of multiple falls at home, pain to his right knee and reports of seizures at home. Clinical course complicated with persistent bacteremia despite treatment with antibiotics and generalized weakness. If patient responds to antibiotic therapy, and gets rehabilitation and changes his life style- he most likely will live a normal life and on the other hand if the above interventions and life style changes do not occur then patient will continue to have complications , deteriorate and decline. Code Status: No Code DNR Plan: PLAN: Legal decision maker: Patient is alert , oriented to self, place and situation. Currently able to participate in medical decision making. In the event that patient is incapacitated, he has designated his brother Daxa Ramos as his health care surrogate and his other brother Omar Mittal as his alternate health care surrogate. Recommending shared decision making since patient has had reported episodes of confusion during this hospitalization. Goals: Aggressive short of no code. Patient has been accepted at [facility] and now awaiting Insurance authorization per case management coordinator. Patient agreeable to discharge to SNF. CODE STATUS: No code DNR/DNI-[facility] DNR signed. Original placed on the chart SYMPTOMS: * Confusion: Patient has history of EtOH abuse. Head CT on 02/16/18 revealed atrophy and chronic low attenuation in the periventricular white matter and mild ventriculomegaly. Currently oriented to self, place and situation. Resolved. * Pain:Hx of injury to right foot. Patient came in complaining of pain to his bilateral knees and has had multiple falls at home. Currently denies pain. Huddleston 5/325 prn available- Patient has not required a dose since admission. * Generalized weakness:Patient has persistent bacteremia. Hx of ETOH abuse and has had multiple falls at home. Physical therapy consulted, recommending PT at rehab. * Pruritic rash: Patient came in with healing macular pruritic rash to bilateral lower and upper extremities. on admission it was difficult to discern whether it was scabies and due to patient`s living conditions x1 time dose Permithrin was administered. Patient is very itchy to his bilateral upper and lower extremities and is continuously scratching. At risk for secondary infection. He has Benadryl 25 mg po q 6 hrs prn and eucerin cream. Recommending a corticosteroid cream-Hydrocortisone to relieve patient from pruritus. Palliative care will continue to follow the patient during hospital course as condition evolves, to assist patient/decision-maker with understanding of their medical conditions, weighing benefits/burdens of treatment options, for clarification of goals of treatment. Additionally will assist with any symptoms of palliative concern Attestation Attestation: To help prompt me to consider important information that might be impacting today's encounter and assessment, information from prior notes written by myself or my colleagues may have been "brought forward" into today's note. My signature on this note, however, is an attestation that I personally performed the exam, history, and/or decision-making noted today, and, unless otherwise indicated, the interactions with patient, family, and staff as well as the review of records all occurred today. I also attest that the listed assessment and stated plan reflect my best clinical judgment today based on the combination of historical information, prior notes, and today's exam/ interactions. When time spent is documented, it refers only to time spent today by the signer, or if indicated, combined time spent today by collaborating physician/nurse practitioner.
[2018-03-03 16:20] VITALS: BP 129/59; PULSE 79; RESP 20; TEMP 97.7; O2SAT 96
[2018-03-03] MEDS ORDERED: Sodium Chloride 0.9% 2 ML Flush BID IV.FLUSH SCH (21:00)
[2018-03-03] MEDS ORDERED: Hydrocortisone 2.5% Cream 30 GM Tube TOPICAL SCH (21:00)
== END 2018-03-03 17:48 ==
LOC: PHED 17:32 → PHEDA 17:32 → PH3 21:20 → PHICU 02-17 15:49 → PH3 02-24 18:32 → N05 02-25 11:40
PROVIDERS: ADMIT Hospitalist; ATTEND Hospitalist